=== PATIENT | female | born 1940 | race Caucasian/White ===

== ENCOUNTER → 2019-08-08 12:04 | Outpatient (CLI) | payer MEDICARE, SELFPAY ==
--- NOTE | ~2019-08-08 | XR_ITS ---
EXAMINATION: XR chest 2V DATE: 08/08/2019 12:22 INDICATION: Cough, shortness of breath, and wheezing. TECHNIQUE: Frontal and lateral views of the chest were obtained. COMPARISON: Chest 2 views 06/24/2019, chest CT 09/30/2018 FINDINGS: A calcified left lung nodule and calcified left hilar lymph nodes are consistent with old g ranulomatous disease. No pleural effusion or pneumothorax. The heart size is normal. There is a moder ate-sized hiatal hernia. IMPRESSION: 1. Moderate-sized hiatal hernia. Reviewed, dictated and finalized at location A. WAY [employer] ARCHITECT
== END ==
LOC: EXPCRAD 12:08
PROVIDERS: PCP Emergency Medicine; Visit Provider Emergency Medicine
DX: R05 Cough (principal); K44.9 Diaphragmatic hernia without obstruction or gangrene
CPT/HCPCS: 71046

== ENCOUNTER 2020-01-11 13:18 | Outpatient (CLI) | payer MEDICARE, SELFPAY ==
--- NOTE | ~2020-01-11 | CT_ITS ---
EXAMINATION: CT chest wo con DATE: 01/11/2020 13:40 INDICATION: R91.1 Solitary pulmonary nodule TECHNIQUE: Computed tomography (CT) of the chest was performed without intravenous contrast. Addition al 3D reconstructions utilizing coronal maximum intensity projection (MIP) were performed. Automated exposure control and iterative reconstruction technique were employed. The dose-length product was 21 0.19 mGy-cm. COMPARISON: None FINDINGS: Cluster of calcified pulmonary nodules in the left lower lobe consistent with old granulomatous disea se, the largest corresponding to the nodule seen on the prior chest radiograph. Again seen are yang us additional scattered bilateral small noncalcified pulmonary nodules, the largest measuring 4 mm in the right middle lobe also likely sequela of old granulomatous disease. Mild peripheral irregular se ptal line thickening at the lung bases consistent with chronic interstitial lung disease. No pneumoni a, pleural effusion or pneumothorax. Heart size is normal. Atherosclerotic coronary artery calcificat ions. No pericardial effusion. Small to moderate sized sliding-type hiatal hernia. Atherosclerotic ca lcific changes along the normal caliber thoracic aorta. Calcified left hilar lymph nodes along with m ultiple scattered hepatic and splenic calcifications, all consistent with old granulomatous disease. No pathologically enlarged thoracic lymphadenopathy. Bilateral renal cysts the largest a 3.4 cm exoph ytic cyst at the upper pole of the right kidney. 3 mm nonobstructing left renal stone. Severe thoraco lumbar spondylosis. IMPRESSION: 1. Multiple 4 mm or smaller pulmonary nodules along with multiple calcified pulmonary nodules, calcif ied left hilar lymph nodes and hepatic and splenic calcifications likely sequela of old granulomatous disease. 2. Mild bibasilar irregular intralobular septal thickening consistent with mild chronic interstitial lung disease. 3. Small to moderate-sized sliding-type hiatal hernia. Reviewed, dictated and finalized at location A. IMPRESSION: 1. Multiple 4 mm or smaller pulmonary nodules along with multiple calcified pul monary nodules, calcified left hilar lymph nodes and hepatic and splenic calcif ications likely sequela of old granulomatous disease. 2. Mild bibasilar irregular intralobular septal thickening consistent with mild chronic interstitial lung disease. 3. Small to moderate-sized sliding-type hiatal hernia.
== END 2020-01-11 13:19 | disposition home or self-care (01) ==
PROVIDERS: Visit Provider Internal Medicine Critical Care Medicine
DX: R91.8 Other nonspecific abnormal finding of lung field (principal); K44.9 Diaphragmatic hernia without obstruction or gangrene
CPT/HCPCS: 71250

== ENCOUNTER 2020-11-07 13:39 | Outpatient (CLI) | payer MEDICARE, SELFPAY ==
--- NOTE | ~2020-11-07 | CT_ITS ---
EXAMINATION: CT diagnostic chest wo con EXAM DATE: 11/07/2020 14:03 INDICATION: J84.9 - Interstitial pulmonary disease, unspecified. TECHNIQUE: Spiral CT of the chest without contrast. HRCT. Axial, coronal and sagittal images were re viewed. Coronal maximum intensity pixel images of chest reviewed. The dose-length product (DLP) for this examination was 631.59 mGy-cm. The exposure was tailored according to patient size (auto mA ex posure control), and iterative reconstruction (ASIR) was used as additional dose reduction technique. Comparison is made to prior examination from 01/11/2020. FINDINGS: Mild basilar intralobular septal thickening again noted without honeycombing. Appearance c onsistent with mild chronic interstitial lung disease. There is mild bronchiectasis. Prior hilar gran ulomatous process causing significant short segment narrowing of the left lower lobe intralobar bronc hus, unchanged compared to prior study (see axial sequence 4 images 56-59). Faint mosaic attenuation suspected most likely air trapping from small airways disease. Scattered small calcified and noncalci fied granulomata unchanged. Precarinal lymph node measuring 1.5 x 1.1 cm, mildly enlarged and mildly increased in size from previous examination. There are no pleural or pericardial effusions. There is no pneumothorax. Borderline enlarged hear t size. There is mild to moderate coronary arterial calcification, arterial sclerosis. There is smal l to moderate-sized sliding gastroesophageal hiatal hernia. 4 mm left superior calyceal stone. Cyst in the superior poles of the kidneys. Evidence of left renal cortical scarring. There is mild to mod erate thoracic spondylosis without osteoblastic or osteolytic lesions identified. IMPRESSION: 1. Left hilar granulomata causing significant narrowing left lower lobe bronchus. 2. Mild chronic interstitial lung disease and probably mild air trapping. 3. Development of mild mediastinal lymphadenopathy likely reactive. 4. Mild bronchiectasis. 5. Gastroesophageal hiatal hernia. 6. Left nephrolithiasis. Reviewed, dictated and finalized at location A. IMPRESSION: 1. Left hilar granulomata causing significant narrowing left lower lobe bronch us. 2. Mild chronic interstitial lung disease and probably mild air trapping. 3. Development of mild mediastinal lymphadenopathy likely reactive. 4. Mild bronchiectasis. 5. Gastroesophageal hiatal hernia. 6. Left nephrolithiasis.
== END 2020-11-07 13:40 | disposition home or self-care (01) ==
LOC: ANHIMG 13:42
PROVIDERS: PCP Family Medicine; Visit Provider Nurse Practitioner Family
DX: J84.9 Interstitial pulmonary disease, unspecified (principal); R04.2 Hemoptysis; J84.10 Pulmonary fibrosis, unspecified; R59.0 Localized enlarged lymph nodes; J47.9 Bronchiectasis, uncomplicated; K44.9 Diaphragmatic hernia without obstruction or gangrene; N20.0 Calculus of kidney
CPT/HCPCS: 71250

== ENCOUNTER 2020-12-01 13:23 | Inpatient (IN) | payer MEDICARE, SELFPAY ==
[2020-12-01] VITALS (18 sets, daily range): BP systolic 146–182; BP diastolic 62–107; PULSE 89–103; RESP 16–28; TEMP 36.1–36.8; O2SAT 86–100; BMI 38.5
--- NOTE | ~2020-12-01 | CT_ITS ---
EXAMINATION: CT soft tissue neck w con EXAM DATE: 12/01/2020 15:05 INDICATION: Respiratory stridor, wheezing, shortness of breath. TECHNIQUE: Spiral CT of the neck was performed without contrast. Axial, coronal and sagittal images were reviewed. The dose-length product (DLP) for this examination was 509.07 mGy-cm. The exposure was tailored according to patient size (auto mA exposure control), and iterative reconstruction (ASIR ) was used as additional dose reduction technique. Correlation is made to chest x-ray same date. FINDINGS: Large incidental partly calcified extra-axial mass along left anterior aspect of the falx m easuring 3.7 x 3.7 cm in diameter, consistent with a meningioma. The thyroid gland is unremarkable. The submandibular and parotid glands are symmetric. There is no cervical lymphadenopathy. There are no masses identified. The superior mediastinum is unremarkable. The airway is unremarkable, epiglottis normal in thickness. Parapharyngeal and pre-glottic fat planes are preserved. The opac ified vasculature is patent. Patient has had bilateral ocular lens surgery. Visualized sinuses an d mastoid air cells are well aerated. Apical groundglass opacity, and interlobular septal thickenin g possible mild pulmonary edema. Consider CHF exacerbation. There is cervical spondylosis. IMPRESSION: 1. Unremarkable epiglottis, airway. 2. At least small layering pleural effusions and also suspect pulmonary edema. CHF? 3. Large incidental left frontal extra-axial mass probably meningioma. Reviewed, dictated and finalized at location B.
--- NOTE | ~2020-12-01 | XR_ITS ---
EXAMINATION: XR chest 1V portable EXAM DATE: 12/01/2020 14:24 INDICATION: Shortness of breath. TECHNIQUE: Portable AP frontal chest x-ray was obtained. Comparison is made to prior examination from 08/08/2019. FINDINGS: Left lower lobe granuloma.. There are no pleural sizable effusions. Mild cardiomegaly. Th ere is indistinct reticulation with a bibasal predominance which may indicate pulmonary edema. Previo usly seen gastroesophageal hiatal hernia less well-visualized. There is no pneumothorax suspected. The bones and soft tissues are unremarkable. IMPRESSION: Cardiomegaly, possible mild pulmonary edema. Reviewed, dictated and finalized at location B.
--- NOTE | ~2020-12-01 | CT_ITS ---
EXAMINATION: CT brain wo con DATE: 12/02/2020 17:05 INDICATION: Left frontal lobe mass. TECHNIQUE: Computed tomography (CT) of the head was performed without intravenous contrast. The mA wa s adjusted according to patient size. Iterative reconstruction technique was employed. The dose-lengt h product was 605.33 mGy-cm. COMPARISON: Head CT 08/25/2015 FINDINGS: There is a 4.1 x 3.7 cm calcified extra-axial mass anteroinferior to left frontal lobe, con sistent with a meningioma. There are scattered areas of low attenuation in the cerebral white matter, which is within normal limits for the patient's age. There is no acute intracranial hemorrhage. Ther e are old infarcts in the bilateral basal ganglia. The ventricles are normal in size. The paranasal s inuses are clear. The mastoid air cells are normal. There are likely changes of ocular lens replaceme nt surgeries. 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 IMPRESSION: 1. Stable 4.1 cm calcified extra-axial mass anteroinferior to left frontal lobe, consistent with a me ningioma. 2. Old lacunar infarcts in the bilateral basal ganglia. Reviewed, dictated and finalized at location A. IMPRESSION: 1. Stable 4.1 cm calcified extra-axial mass anteroinferior to left frontal lobe , consistent with a meningioma. 2. Old lacunar infarcts in the bilateral basal ganglia.
--- NOTE | 2020-12-01 13:25 | ECG_ITS ---
Measurements Intervals [place] Rate: 96 P: [place]: 0 QRS: 44 QRSD: 84 T: 76 QT: 325 QTc: 411 Interpretive Statements SINUS RHYTHM ATRIAL AND VENTRICULAR PREMATURE COMPLEXES VOLTAGE CRITERIA FOR LVH BORDERLINE T WAVE ABNORMALITY- HIGH LATERAL LEADS BORDERLINE ECG Electronically Signed On 12-01-2020 13:34:28 CDT by Aadms Beltran D.O.
--- NOTE | 2020-12-01 13:46 | ED.SOB ---
HPI - SOB/Dyspnea General Chief Complaint: Shortness of Breath/Dyspnea Stated Complaint: can't breathe Time Seen by Provider: 12/01/20 13:36 History of Present Illness HPI Narrative: 80 yo female w/ h/o COPD, CHF, htn, atrial fibrillation presents to the ED for SOB. She reports that she has been short of breath for at least a few weeks. She becomes SOB with minimal exertion. She has severe orthopnea. She reports improvement of chronic BLE edema. No chest pain. SHe went to get her hair done today and was barely able to get out of the car due to SOB. On arrival here her O2 saturation was 86% on her baseline 3 liters by NC. She required 6 liters to maintain 90%. No chest pain, fever, nausea, vomiting. Related Data Home Medications Medication Instructions Recorded Confirmed rosuvastatin 20 mg PO DAILY 06/05/19 10/13/20 furosemide 20 mg tablet 40 mg PO DAILY tablet 08/03/19 10/13/20 fluoxetine 20 mg tablet 10 mg PO DAILY tablet 01/14/20 10/13/20 potassium chloride meq PO 12/01/20 12/01/20 Allergies Allergy/AdvReac Type Severity Reaction Status Date / Time codeine Allergy Unknown Unknown Verified 12/01/20 13:31 Hcatwuh-Naf-Tza Reductase Allergy Unknown myalgias Verified 12/01/20 13:31 Inhibitor Sulfa (Sulfonamide Allergy Unknown Unknown Verified 12/01/20 13:31 Antibiotics) Review of Systems Review of Systems: All systems reviewed & are unremarkable except as noted in HPI and below Constitutional: Constitutional: Denies chills and Denies fever(s) Eyes: Eyes: Reports no additional eye complaints ENT: Reports system reviewed and no additional complaints, except as documented Cardiovascular: Cardiovascular: Denies chest pain Respiratory: Respiratory: Reports chest congestion, Reports cough, Reports dyspnea and Reports wheezing Gastrointestinal: Gastrointestinal: Reports abdominal pain (intermittent RUQ pain) and Denies nausea Genitourinary: Genitourinary: Reports no additional female genitourinary complaints Musculoskeletal: Musculoskeletal: Denies back pain Neurologic: Denies dizziness and Denies weakness FOR[facility]LY [facility], [facility] Past Medical History Medical History Anemia Anxiety Arthritis Asthma Atrial fibrillation with RVR CAD (coronary artery disease) Cataracts, bilateral CHF (congestive heart failure) COPD (chronic obstructive pulmonary disease) CVA (cerebral vascular accident) Depression GERD (gastroesophageal reflux disease) History of kidney stones HLD (hyperlipidemia) HTN (hypertension) Hypercholesteremia Kidney stones Lupus Patient said she was diagnosed by 1 doctor and then another doctor said she did not have it On home O2 2.5 L Pneumonia Pulmonary embolism Sleep apnea Chronically on oxygen at 2.5 L. Does not use CPAP machine UTI (urinary tract infection) Surgical History Surgical History History of hysterectomy History of right knee joint replacement Hx of appendectomy Hx of bilateral cataract extraction Hx of tonsillectomy Family History Family History Mother Hypertension Family history of primary malignant neoplasm of liver Carcinoma of colon Sibling Hypertension Asthma Family history of elevated blood lipids Cerebrovascular accident Family history of malignant neoplasm of breast in first degree relative Family history of chronic obstructive pulmonary disease Family history of congestive heart failure Father Family history of coronary artery disease Family history of heart disease in male family member before age 55 Hypertension Acute myocardial infarction Family history of congestive heart failure Other Family history of arthritis Social History Social History Social History: Her daughter Zo is a durable 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
[2020-12-01 13:55] LABS: Basophils Absolute Auto 0.1 K/mm3 (0.0-0.1); Basophils Percent Auto 0.9 % (0.2-1.2); Eosinophils Absolute Auto 0.2 K/mm3 (0-0.3); Eosinophils Percent Auto 3.6 % (0-4.4); Hematocrit 30.6 % (37.0-47.0); Hemoglobin 9.2 g/dL (12.0-15.0); Immature Granulocyte Absolute 0.02 K/mm3 (0.00-0.031); Immature Granulocyte Percent A 0.4 % (0-0.5); Lymphocytes Absolute Auto 0.82 K/mm3 (0.9-3.2); Lymphocytes Percent Auto 14.9 % (18.3-44.2); Mean Corpuscular HGB Conc 30.1 g/dl (32-36); Mean Corpuscular Hemoglobin 29.3 pg (26-34); Mean Corpuscular Volume 97.5 fl (80-100); Mean Platelet Volume 12.1 fl (7.4-10.4); Monocytes Absolute Auto 0.8 K/mm3 (0.1-0.6); Neutrophils Absolute Auto 3.6 K/mm3 (1.3-6.7); Neutrophils Percent Auto 65.2 % (45.5-73.1); Platelet Count Result 135 k/mm3 (150-375); Red Blood Count 3.14 M/mm3 (4.2-5.4); Red Cell Distribution Width 14.4 % (11.5-14.5); White Blood Count 5.5 K/mm3 (4.5-10.0)
[2020-12-01 14:05] LABS: Alveolar/Arterial O2 Gradient 126.1 mmHg; Base Excess ABG 4.5 mEq/l (+/-2.0); Carboxyhemoglobin 0.1 % THb (0-2.0); Fractional Inspired Oxygen 44 %; HCO3 ABG 30.2 mEq/l (22.0-26.0); Oxygen Content ABG 14.3 %vol (16.0-22.0); Oxygen Saturation ABG 98.5 % (95.0-100.0); PCO2 ABG 51.1 mmHg (35.0-45.0); PO2 ABG 129.4 mmHg (80.0-100.0); PO2 FiO2 Ratio Arterial Blood 2.94 %; Reduced Hemoglobin 1.9 %THb (0-5.0); Total Hemoglobin 10.2 g/dL (12.0-18.0)
[2020-12-01 14:06] LABS: Device NASAL CANNULA; Modified Allen's Test Pass; Site Drawn RIGHT RADIAL
[2020-12-01 14:10] LABS: Anion Gap 1 mmol/L (8-16); Blood Urea Nitrogen 21 mg/dL (7-17); Calcium 9.7 mg/dL (8.4-10.2); Carbon Dioxide 36 mmol/L (22-30); Chloride 105 mmol/L (98-107); Estimated CRCL calculation 40 ml/min; Estimated Glomerular Filt Rate 53; Glucose 95 mg/dL (65-105); Potassium 4.4 mmol/L (3.4-5.0); Sodium 142 mmol/L (137-145)
[2020-12-01] MEDS: ALBUTEROL SULFATE NEB 2.5 MG/0.5 ML INH 5 MG INHALATION ×2 (14:11→21:13)
[2020-12-01] MEDS: IPRATROPIUM BR 0.02% INH SOLN 0.5 MG/2.5 ML VIAL INHALATION ×2 (14:12→21:13)
[2020-12-01 14:18] LABS: NT Pro B Type Natriuretic Pept 12000 pg/mL (5-100)
[2020-12-01] MEDS: racEPINEPHrine 2.25% NEBU SOLN 0.5 ML VIAL.NEB INHALATION (14:34)
[2020-12-01] MEDS: HYDROCORTISONE SODIUM SUCCINATE 100 MG/2 ML VIAL IV PUSH (16:23)
[2020-12-01] MEDS: FUROSEMIDE INJ 40 MG/4 ML VIAL IV PUSH ×2 (16:23→20:12)
--- NOTE | 2020-12-01 17:03 | ADMGEN ---
This patient, Anna Jones, was admitted to Medical Room 342-01. Patient/family oriented to hospital policies and general routines including ID bracelet, bed and alarms, visiting hours, pain management, procedures, bathroom and other care routines, personal items, smoking policy, room service/diet, and visiting hours. Information on how to activate the Rapid Response Team has been discussed. Patient/Family are encouraged to report perceived risks to care and to ask questions if they do not understand what they are told or what they should do.
[2020-12-01] MEDS: methylPREDNISolone SOD SUCC 125 MG VIAL 60 MG IV PUSH ×2 (18:03→23:19)
--- NOTE | 2020-12-01 22:57 | PM.IMHP ---
H&P: HPI History of Present Illness Date/Time: 12/01/20 22:57 this is a 80-year-old female patient has a history of congestive heart failure, atrial fibrillation, COPD, and hypertension. The patient chronically wears oxygen at 3 L per nasal cannula. The patient stated that she has not been taking her Lasix on a regular basis because it causes her legs to cramp also she is tired to the frequent urination. The patient does use urinary pads. The patient has severe orthopnea and dyspnea on exertion. The patient's oxygen was bumped up to 6 L per nasal cannula today. The patient went to get her hair done today and was having difficulty getting out of her car due to the shortness of breath. However the patient was able to tolerate sitting in the chair to get her hair cut today.Soft tissue neck CT was performed in the emergency room which was read as unremarkable epiglottis, airway. At least small earring pleural effusions and also suspect pulmonary edema questionable congestive heart failure large incidental left frontal extra axial mass probably meningioma. The ER physician felt that the patient was having some stridor. Chest x-ray was read as cardiomegaly, possible mild pulmonary edema. She is on Eliquis due to history of pulmonary emboli. The patient's last chest CT was 11/08/2020 which was read as left hilar granulomata causing some significant narrowing left lower lobe bronchus. Mild chronic interstitial lung disease and probably mild air trapping. Development of mild mediastinal lymphadenopathy likely reactive. Mild bronchiolectasis. Gastroesophageal hiatal hernia. Left nephrolithiasis. Albuterol neb treatments. Racemic epi. IV Lasix Solu-Medrol in the emergency room. The patient is being admitted to inpatient status on the date of service of 12/01/2020. Chief Complaint: Dyspnea on exertion Review of Systems Review of Systems: All systems reviewed & are unremarkable except as noted in HPI and below Constitutional: Constitutional: Reports as per HPI and Reports no additional constitutional complaints Eyes: Eyes: Reports as per HPI and Reports no additional eye complaints ENT: Reports system reviewed and no additional complaints, except as documented and Reports Normal hearing present Cardiovascular: Cardiovascular: Reports no additional cardiovascular complaints Respiratory: Respiratory: Reports no additional respiratory complaints and Reports no additional respiratory complaints Gastrointestinal: Gastrointestinal: Reports as per HPI and Reports no additional gastrointestinal complaints Musculoskeletal: Musculoskeletal: Reports no additional musculoskeletal complaints Integumentary/Breasts: Skin/Breast: Reports system reviewed and no additional complaints, except as docu and Reports as per HPI Neurologic: Reports system reviewed and no additional complaints, except as documented, Reports as per HPI and Reports Normal hearing present Psychiatric: Psychiatric: Reports no additional psychiatric complaints and Reports as per HPI Endocrine: Endocrine: Reports no additional endocrine complaints Hematologic/Lymphatic: Hematologic/Lymphatic: Reports no additional hematologic/lymphatic complaints Allergic/Immunologic: Allergic/Immunologic: Reports no additional allergic/immunologic complaints [facility] Past Medical History Medical History (Updated 12/01/20 @ 23:09 by Iza Patel NP) Anemia Anxiety Arthritis Asthma Atrial fibrillation with RVR CAD (coronary artery disease) Cataracts, bilateral CHF (congestive heart failure) COPD (chronic obstructive pulmonary disease) CVA (cerebral vascular accident) Depression GERD (gastroesophageal reflux disease) History of kidney stones HLD (hyperlipidemia) HTN (hypertension) Hypercholesteremia Kidney stones Lupus Patient said she was diagnosed by 1 doctor and then another doctor said she did not have it On home O2 3 L Pneumonia Pulmonary embolism Sleep apnea Chronically on oxyge
[2020-12-01] MEDS: APIXABAN 5 MG TABLET PO (23:18)
[2020-12-02] VITALS (16 sets, daily range): BP systolic 140–157; BP diastolic 50–75; PULSE 88–111; RESP 18–20; TEMP 36.1–36.3; O2SAT 94–97
--- NOTE | 2020-12-02 | ECHO_ITS ---
Patient Info Name: Anna Jones Age: 80 years : 1940 Gender: Female Ht: 62 in Wt: 210 lbs BSA: 2.09 m2 HR: 109 bpm BP: 157 / 75 mmHg Heart Rhythm: Sinus Rhythm Exam Date: 12/02/2020 10:38 AM Exam Location: [facility] Patient Status: Inpatient Admit Date: 12/01/2020 Staff Ordering Physician: Iza Patel NP Transition Assistant: Viraj Burgess RDCS, RT Attending Provider: Adan Garcia MD Referring Physician: Jorge ANDERSON; Exam Type: CA echo doppler color flow Study Info Indications I50.9 - Heart failure, unspecified Complete two-dimensional, color flow and Doppler transthoracic echocardiogram is performed. Strain analysis performed. Summary 1. Complete two-dimensional, color flow and Doppler transthoracic echocardiogram is performed. 2. Left ventricular systolic function is normal, estimated at 50-55%. 3. The left ventricular diastolic function is grade I diastolic dysfunction. 4. There is moderate concentric increased left ventricular wall thickness. 5. Left atrial chamber dimension is mildly enlarged. 6. There is mild mitral valve regurgitation. 7. There is mild aortic valve sclerosis. Left Ventricle Left ventricular chamber dimension is normal. Left ventricular systolic function is normal, estimated at 50-55%. There is moderate concentric increased left ventricular wall thickness. The left ventricular diastolic function is grade I diastolic dysfunction. Right Ventricle Right ventricular chamber dimension is normal. Left Atria Left atrial chamber dimension is mildly enlarged. Right Atria Right atrial chamber dimension is normal. Aortic Valve The aortic valve is trileaflet. There is mild aortic valve sclerosis. Pulmonic Valve The pulmonic valve is not well visualized. Mitral Valve The mitral valve has normal leaflets. There is mild mitral valve regurgitation. Tricuspid Valve The tricuspid valve leaflets are normal. Pericardium/Pleural The pericardium appears normal. Aorta The aortic root size at the sinus of Valsalva is normal. Left Ventricular Outflow Tract Name Value Normal LVOT 2D LVOT Diameter 2.0 cm LVOT Doppler LVOT Peak Gradient 6 mmHg LVOT Mean Gradient 3 mmHg LVOT VTI 23 cm LVOT VTI/AV VTI Ratio 0.7 LVOT Stroke Volume 70 ml LVOT CO 6.9 l/min LVOT CI 3.3 l/min/m2 Mitral Valve Name Value Normal MV Doppler MV Peak Gradient 1 mmHg MV Mean Gradient 1 mmHg MV Decel Atlantic 728 cm/s2 MV PHT 49 ms MV Area (PHT) 4.5 cm2
[2020-12-02] MEDS: ALBUTEROL SULFATE NEB 2.5 MG/0.5 ML INH 5 MG INHALATION ×3 (02:07→13:39)
[2020-12-02] MEDS: IPRATROPIUM BR 0.02% INH SOLN 0.5 MG/2.5 ML VIAL INHALATION ×3 (02:08→13:39)
[2020-12-02] MEDS: methylPREDNISolone SOD SUCC 125 MG VIAL 60 MG IV PUSH ×2 (05:37→21:21)
[2020-12-02 05:46] LABS: Hematocrit 31.5 % (37.0-47.0); Hemoglobin 9.6 g/dL (12.0-15.0); Mean Corpuscular HGB Conc 30.5 g/dl (32-36); Mean Corpuscular Hemoglobin 29.1 pg (26-34); Mean Corpuscular Volume 95.5 fl (80-100); Mean Platelet Volume 12.3 fl (7.4-10.4); Platelet Count Result 144 k/mm3 (150-375); Red Cell Distribution Width 13.9 % (11.5-14.5); White Blood Count 4.5 K/mm3 (4.5-10.0)
[2020-12-02 06:07] LABS: Alanine Aminotransferase 12 U/L (4-35); Albumin Level 3.8 g/dL (3.5-5.1); Alkaline Phosphatase 62 U/L (38-126); Aspartate Amino Transferase 28 U/L (14-36); Bilirubin,Total 0.3 mg/dL (0.2-1.3); Blood Urea Nitrogen 21 mg/dL (7-17); Calcium 9.6 mg/dL (8.4-10.2); Carbon Dioxide > 40 mmol/L (22-30); Chloride 96 mmol/L (98-107); Estimated CRCL calculation 32 ml/min; Estimated Glomerular Filt Rate 39; Glucose 158 mg/dL (65-105); Magnesium 1.7 mg/dL (1.6-2.3); Potassium 4.3 mmol/L (3.4-5.0); Sodium 139 mmol/L (137-145)
[2020-12-02] MEDS: ACETAMINOPHEN 325 MG TABLET 650 MG PO ×2 (07:59→21:28)
[2020-12-02] MEDS: APIXABAN 5 MG TABLET PO ×2 (08:00→16:43)
[2020-12-02] MEDS: lisinopriL 5 MG TABLET PO (08:00)
[2020-12-02] MEDS: ROSUVASTATIN 10 MG TABLET 20 MG PO (08:00)
[2020-12-02] MEDS: POTASSIUM CHLORIDE 20 MEQ TABLET.ER PO (08:00)
[2020-12-02] MEDS: FLUoxetine HCL 10 MG CAPSULE PO (08:00)
[2020-12-02] MEDS: FUROSEMIDE INJ 40 MG/4 ML VIAL IV PUSH ×2 (08:01→21:22)
--- NOTE | 2020-12-02 09:26 | PM.IMPN ---
Progress Note: A&P Assessment and Plan (1) CHF (congestive heart failure): Qualifiers: Heart failure type: combined systolic and diastolic Heart failure chronicity: acute on chronic Qualified Code(s): I50.43 - Acute on chronic combined systolic (congestive) and diastolic (congestive) heart failure Code(s): I50.9 - Heart failure, unspecified Status: Acute Assessment and Plan: Patient presents with worsening shortness of breath over the last few weeks, worsening yesterday could barely walk. She admits she takes her Lasix rarely , only when her legs are swollen, because she dislikes the frequent urination. We discussed medication compliance at length and the importance of taking her Lasix. Echo pending. Chest XR shows cardiomegaly with possible pulmonary edema. Continue IV Lasix BID. Recheck chest XR in AM. Monitor daily weights, I&Os. Continue her lisinopril and monitor renal function. She used to be on metoprolol tartrate due to a fib but I don't see this on her medication list now. Will start succinate given her CHF pending her repeat echo. (2) Chronic obstructive pulmonary disease (COPD): Qualifiers: COPD type: unspecified COPD Qualified Code(s): J44.9 - Chronic obstructive pulmonary disease, unspecified Code(s): J44.9 - Chronic obstructive pulmonary disease, unspecified Status: Chronic Assessment and Plan: She was started on IV solu-medrol yesterday due to significant wheezing. She doesn't have wheezing today, will wean steroids. She uses nebulizer at home, continue her nebulized bronchodilators here. No respiratory distress today, will plan to wean steroids to oral prednisone in AM. (3) Pulmonary embolism: Qualifiers: Pulmonary embolism type: unspecified Chronicity: unspecified Acute cor pulmonale presence: unspecified Qualified Code(s): I26.99 - Other pulmonary embolism without acute cor pulmonale Code(s): I26.99 - Other pulmonary embolism without acute cor pulmonale Status: Chronic Assessment and Plan: History of PE/DVT in 2019, remains on her home Eliquis. (4) Anxiety: Code(s): F41.9 - Anxiety disorder, unspecified Status: Chronic Assessment and Plan: Maintained on her home fluoxetine. (5) HTN (hypertension): Qualifiers: Hypertension type: essential hypertension Qualified Code(s): I10 - Essential (primary) hypertension Code(s): I10 - Essential (primary) hypertension Status: Chronic Assessment and Plan: BPs elevated; last 157/75. Continue her home lisinopril, started metoprolol. Monitor BP and adjust treatment as needed. (6) HLD (hyperlipidemia): Qualifiers: Hyperlipidemia type: unspecified Qualified Code(s): E78.5 - Hyperlipidemia, unspecified Code(s): E78.5 - Hyperlipidemia, unspecified Status: Chronic Assessment and Plan: Continue home statin therapy. Additional Plan PT/OT Subjective Date/time seen: 12/02/20 09:00 Interval history: Ms. Jones is a pleasant 80yo F with COPD and CHF admitted for shortness of breath. She reports she had significant wheezing yesterday which is improved today an d overall feels her shortness of breath is a little improved. She feels weak. Cough at baseline, no worse than normal. Denies chest pain or palpitations. Has not noticed much swelling in her legs. She has felt worsening shortness of breath for a couple weeks worsening more over the last couple days and could barely walk yesterday due to SOB. Admits she does not take her lasix at home. Review of Systems Review of Systems: All systems reviewed & are unremarkable except as noted in HPI and b
[2020-12-02] MEDS: PANTOPRAZOLE 40 MG TABLET PO (09:57)
[2020-12-03] VITALS (15 sets, daily range): BP systolic 124–148; BP diastolic 50–86; PULSE 74–106; RESP 14–20; TEMP 35.9–36.8; O2SAT 95–98
[2020-12-03] MEDS: ALBUTEROL SULFATE NEB 2.5 MG/0.5 ML INH 5 MG INHALATION ×4 (02:36→19:35)
[2020-12-03] MEDS: IPRATROPIUM BR 0.02% INH SOLN 0.5 MG/2.5 ML VIAL INHALATION ×4 (02:36→19:34)
--- NOTE | 2020-12-03 02:39 | PCRCNOTE ---
Window of time for administration has passed. See next scheduled administration.
[2020-12-03 06:03] LABS: Basophils Percent Auto 0.1 % (0.2-1.2); Hematocrit 30.2 % (37.0-47.0); Hemoglobin 9.3 g/dL (12.0-15.0); Immature Granulocyte Absolute 0.03 K/mm3 (0.00-0.031); Immature Granulocyte Percent A 0.4 % (0-0.5); Lymphocytes Percent Auto 4.8 % (18.3-44.2); Mean Corpuscular HGB Conc 30.8 g/dl (32-36); Mean Corpuscular Hemoglobin 28.8 pg (26-34); Mean Corpuscular Volume 93.5 fl (80-100); Mean Platelet Volume 12.6 fl (7.4-10.4); Monocytes Absolute Auto 0.3 K/mm3 (0.1-0.6); Monocytes Percent Auto 3.5 % (2.6-8.5); Neutrophils Absolute Auto 7.6 K/mm3 (1.3-6.7); Neutrophils Percent Auto 91.2 % (45.5-73.1); Platelet Count Result 159 k/mm3 (150-375); Red Blood Count 3.23 M/mm3 (4.2-5.4); Red Cell Distribution Width 13.9 % (11.5-14.5); White Blood Count 8.3 K/mm3 (4.5-10.0)
[2020-12-03 06:29] LABS: Blood Urea Nitrogen 36 mg/dL (7-17); Calcium 9.6 mg/dL (8.4-10.2); Carbon Dioxide > 40 mmol/L (22-30); Chloride 94 mmol/L (98-107); Estimated CRCL calculation 25 ml/min; Estimated Glomerular Filt Rate 29; Glucose 171 mg/dL (65-105); Magnesium 1.8 mg/dL (1.6-2.3); Potassium 4.3 mmol/L (3.4-5.0); Sodium 139 mmol/L (137-145)
[2020-12-03] MEDS: APIXABAN 5 MG TABLET PO ×2 (08:08→17:04)
[2020-12-03] MEDS: predniSONE 20 MG TABLET 40 MG PO (08:08)
[2020-12-03] MEDS: PANTOPRAZOLE 40 MG TABLET PO (08:09)
[2020-12-03] MEDS: ROSUVASTATIN 10 MG TABLET 20 MG PO (08:09)
[2020-12-03] MEDS: lisinopriL 5 MG TABLET PO (08:09)
[2020-12-03] MEDS: FLUoxetine HCL 10 MG CAPSULE PO (08:09)
[2020-12-03] MEDS: METOPROLOL SUCCINATE EXT REL 12.5 MG TABCR PO (08:09)
[2020-12-03] MEDS: POTASSIUM CHLORIDE 20 MEQ TABLET.ER PO (08:56)
[2020-12-03] MEDS: FUROSEMIDE INJ 40 MG/4 ML VIAL IV PUSH ×2 (08:57→20:00)
--- NOTE | 2020-12-03 13:16 | PM.IMPN ---
Progress Note: A&P Assessment and Plan (1) CHF (congestive heart failure): Qualifiers: Heart failure type: combined systolic and diastolic Heart failure chronicity: acute on chronic Qualified Code(s): I50.43 - Acute on chronic combined systolic (congestive) and diastolic (congestive) heart failure Code(s): I50.9 - Heart failure, unspecified Status: Acute Assessment and Plan: Patient is feeling much better now. Will continue diuresis. He stays okay possible discharge in the morning. (2) Chronic obstructive pulmonary disease (COPD): Qualifiers: COPD type: unspecified COPD Qualified Code(s): J44.9 - Chronic obstructive pulmonary disease, unspecified Code(s): J44.9 - Chronic obstructive pulmonary disease, unspecified Status: Chronic Assessment and Plan: She was started on IV solu-medrol yesterday due to significant wheezing. She doesn't have wheezing today, will wean steroids. She uses nebulizer at home, continue her nebulized bronchodilators here. No respiratory distress today, will plan to wean steroids to oral prednisone in AM. (3) Pulmonary embolism: Qualifiers: Pulmonary embolism type: unspecified Chronicity: unspecified Acute cor pulmonale presence: unspecified Qualified Code(s): I26.99 - Other pulmonary embolism without acute cor pulmonale Code(s): I26.99 - Other pulmonary embolism without acute cor pulmonale Status: Chronic Assessment and Plan: History of PE/DVT in 2019, remains on her home Eliquis. (4) Anxiety: Code(s): F41.9 - Anxiety disorder, unspecified Status: Chronic Assessment and Plan: Maintained on her home fluoxetine. (5) HTN (hypertension): Qualifiers: Hypertension type: essential hypertension Qualified Code(s): I10 - Essential (primary) hypertension Code(s): I10 - Essential (primary) hypertension Status: Chronic Assessment and Plan: BPs elevated; last 157/75. Continue her home lisinopril, started metoprolol. Monitor BP and adjust treatment as needed. (6) HLD (hyperlipidemia): Qualifiers: Hyperlipidemia type: unspecified Qualified Code(s): E78.5 - Hyperlipidemia, unspecified Code(s): E78.5 - Hyperlipidemia, unspecified Status: Chronic Assessment and Plan: Continue home statin therapy. Additional Plan PT/OT Will continue current treatment. Stays okay will discharge in the morning. Subjective Date/time seen: 12/03/20 13:16 Interval history: Ms. Jones is a pleasant 80yo F with COPD and CHF was admitted for shortness of breath. She was seen during the morning rounds today. Feeling slightly better today. Decreased shortness of breath. No chest pain. Mood stable. Review of Systems Review of Systems: All systems reviewed & are unremarkable except as noted in HPI and below Constitutional: Constitutional: Reports as per HPI and Reports no additional constitutional complaints Eyes: Eyes: Reports as per HPI and Reports no additional eye complaints ENT: Reports system reviewed and no additional complaints, except as documented and Reports Normal hearing present Cardiovascular: Cardiovascular: Reports no additional cardiovascular complaints Respiratory: Respiratory: Reports no additional respiratory complaints and Reports no additional respiratory complaints Gastrointestinal: Gastrointestinal: Reports as per HPI and Reports no additional gastrointestinal complaints Musculoskeletal: Musculoskeletal: Reports no additional musculoskeletal complaints Integumentary/Breasts: Skin/Breast: Reports system reviewed and no additional complaints, except as docu and Reports
[2020-12-03] MEDS: ACETAMINOPHEN 325 MG TABLET 650 MG PO (19:59)
[2020-12-04] MEDS: ALBUTEROL SULFATE NEB 2.5 MG/0.5 ML INH 5 MG INHALATION ×2 (01:51→08:46)
[2020-12-04] MEDS: IPRATROPIUM BR 0.02% INH SOLN 0.5 MG/2.5 ML VIAL INHALATION ×2 (01:51→08:46)
[2020-12-04 01:52] VITALS: PULSE 98; RESP 20
[2020-12-04 02:05] VITALS: PULSE 92; RESP 20
[2020-12-04 05:57] VITALS: BP 148/70; PULSE 90; RESP 14; TEMP 36.7; O2SAT 97
--- NOTE | 2020-12-04 08:15 | PM.DS ---
DS: Admitting Diagnosis Admitting Diagnosis Admitting Diagnosis: 1. Acute exacerbation of systolic congestive heart failure. 2. History of COPD. 3. History of hypertension. 4. History of DVT. DS: Discharge Diagnosis Discharge Diagnosis (1) CHF (congestive heart failure): Qualifiers: Heart failure type: combined systolic and diastolic Heart failure chronicity: acute on chronic Qualified Code(s): I50.43 - Acute on chronic combined systolic (congestive) and diastolic (congestive) heart failure Code(s): I50.9 - Heart failure, unspecified Status: Acute Assessment and Plan: Patient is feeling much better now. Will continue diuresis. He stays okay possible discharge in the morning. (2) Chronic obstructive pulmonary disease (COPD): Qualifiers: COPD type: unspecified COPD Qualified Code(s): J44.9 - Chronic obstructive pulmonary disease, unspecified Code(s): J44.9 - Chronic obstructive pulmonary disease, unspecified Status: Chronic Assessment and Plan: She was started on IV solu-medrol yesterday due to significant wheezing. She doesn't have wheezing today, will wean steroids. She uses nebulizer at home, continue her nebulized bronchodilators here. No respiratory distress today, will plan to wean steroids to oral prednisone in AM. (3) Pulmonary embolism: Qualifiers: Pulmonary embolism type: unspecified Chronicity: unspecified Acute cor pulmonale presence: unspecified Qualified Code(s): I26.99 - Other pulmonary embolism without acute cor pulmonale Code(s): I26.99 - Other pulmonary embolism without acute cor pulmonale Status: Chronic Assessment and Plan: History of PE/DVT in 2019, remains on her home Eliquis. (4) Anxiety: Code(s): F41.9 - Anxiety disorder, unspecified Status: Chronic Assessment and Plan: Maintained on her home fluoxetine. (5) HTN (hypertension): Qualifiers: Hypertension type: essential hypertension Qualified Code(s): I10 - Essential (primary) hypertension Code(s): I10 - Essential (primary) hypertension Status: Chronic Assessment and Plan: BPs elevated; last 157/75. Continue her home lisinopril, started metoprolol. Monitor BP and adjust treatment as needed. (6) HLD (hyperlipidemia): Qualifiers: Hyperlipidemia type: unspecified Qualified Code(s): E78.5 - Hyperlipidemia, unspecified Code(s): E78.5 - Hyperlipidemia, unspecified Status: Chronic Assessment and Plan: Continue home statin therapy. DS: Summary Hospital Course Hospital Course: 80 years old female was admitted with complaint of having shortness of breath. Patient physical examination shows that if he has crackles in the lungs. DVT was slightly increased. X-ray chest confirmed that patient has fluid in the lungs. Patient was given diuretics and continued treatment for her pulmonary embolism and COPD. Patient continued to improve. Today patient is feeling better so it was decided to discharge the patient home, patient discharged home in stable condition. Time spent discussing smoking cessation with patient: 3 to 10 minutes Status at Discharge Functional status at discharge: independent ambulation Overall status at discharge: patient is back to baseline Time Spent with Patient Time attestation: Total time spent providing and/or coordinating discharge services: Time spent: Less than 30 minutes Exam Narrative: Exam Narrative: General: Female resting comfortably sitting up in bed in no acute distress. HEENT: Normocephalic, EOMI, oral mucosa moist. Cardiovascular: Rate and rhythm are regular. Respiratory: Diminished b
[2020-12-04 08:45] VITALS: PULSE 92; RESP 20; O2SAT 95
[2020-12-04 08:55] VITALS: PULSE 90; RESP 20
[2020-12-04] MEDS: FLUoxetine HCL 10 MG CAPSULE PO (09:06)
[2020-12-04] MEDS: APIXABAN 5 MG TABLET PO (09:06)
[2020-12-04] MEDS: predniSONE 20 MG TABLET PO (09:06)
[2020-12-04 09:07] VITALS: PULSE 70
[2020-12-04] MEDS: METOPROLOL SUCCINATE EXT REL 12.5 MG TABCR PO (09:07)
[2020-12-04] MEDS: FUROSEMIDE INJ 40 MG/4 ML VIAL IV PUSH (09:07)
[2020-12-04] MEDS: lisinopriL 5 MG TABLET PO (09:07)
[2020-12-04] MEDS: ROSUVASTATIN 10 MG TABLET 20 MG PO (09:08)
[2020-12-04] MEDS: PANTOPRAZOLE 40 MG TABLET PO (09:08)
[2020-12-04] MEDS: POTASSIUM CHLORIDE 20 MEQ TABLET.ER PO (09:08)
== END 2020-12-04 12:10 | disposition home or self-care (01) | DRG 292 ==
LOC: ANHED 14:15 → ANH3MED 17:37
PROVIDERS: Nurse Practitioner; Physician Assistant; Admitting Provider Internal Medicine; Emergency Provider Emergency Medicine; PCP Family Medicine; Visit Provider Internal Medicine
DX: I11.0 Hypertensive heart disease with heart failure (principal); I48.20 Chronic atrial fibrillation, unspecified; J96.11 Chronic respiratory failure with hypoxia; J96.12 Chronic respiratory failure with hypercapnia; I50.43 Acute on chronic combined systolic (congestive) and diastolic (congestive) heart failure; D64.9 Anemia, unspecified; M19.90 Unspecified osteoarthritis, unspecified site; I25.10 Atherosclerotic heart disease of native coronary artery without angina pectoris; K21.9 Gastro-esophageal reflux disease without esophagitis; E78.5 Hyperlipidemia, unspecified; J44.9 Chronic obstructive pulmonary disease, unspecified; G47.30 Sleep apnea, unspecified; F41.9 Anxiety disorder, unspecified; F32.9 Major depressive disorder, single episode, unspecified; Z96.651 Presence of right artificial knee joint; Z86.711 Personal history of pulmonary embolism; Z99.81 Dependence on supplemental oxygen; Z86.73 Personal history of transient ischemic attack (TIA), and cerebral infarction without residual deficits; Z90.710 Acquired absence of both cervix and uterus; Z90.49 Acquired absence of other specified parts of digestive tract; Z98.42 Cataract extraction status, left eye; Z98.41 Cataract extraction status, right eye; Z87.891 Personal history of nicotine dependence; Z79.01 Long term (current) use of anticoagulants
CPT/HCPCS: 36415; 36600; 70450; 70491; 71045; 80048; 80053; 82375; 82805; 83050; 83735; 83880; 85025; 85027; 93005; 93306; 94640; 97110; 97116; 97161; 97165; 99285; A9270; J1720; J1940; J2930; J7512; Q9967

== ENCOUNTER 2021-04-17 09:11 | Outpatient (CLI) | payer MEDICARE, SELFPAY ==
--- NOTE | ~2021-04-17 | US_ITS ---
US right upper quadrant INDICATION: Right upper quadrant pain PROCEDURE: Realtime right upper abdominal ultrasound. COMPARISON: No prior studies for comparison. FINDINGS: The pancreas is normal without focal mass or pancreatic ductal dilation. Liver echotexture is normal without focal mass or intrahepatic biliary dilatation. There is normal directional flow i n the portal vein. The gallbladder is normal without stones, gallbladder wall thickening or pericholecystic fluid. Comm on bile duct measures 2 mm. No sonographic Burgess's sign. IMPRESSION: 1: Normal limited abdominal ultrasound. Reviewed, dictated and finalized at location A.
== END 2021-04-17 09:12 | disposition home or self-care (01) ==
LOC: ANHIMG 09:15
PROVIDERS: PCP Family Medicine; Visit Provider Physician Assistant
DX: R10.11 Right upper quadrant pain (principal)
CPT/HCPCS: 76705

== ENCOUNTER 2021-05-23 13:58 | Outpatient (CLI) | payer MEDICARE, SELFPAY ==
--- NOTE | ~2021-05-23 | XR_ITS ---
EXAMINATION: XR chest 2V EXAM DATE: 05/23/2021 14:27 INDICATION: Dyspnea, shortness of breath. TECHNIQUE: Frontal and lateral projections of the chest obtained and reviewed. Comparison is made to prior examination from 12/01/2020. FINDINGS: There is left lower lobe granuloma. The lungs are otherwise clear. There are no pleural ef fusions. The cardiomediastinal silhouette is within normal limits. There is no pneumothorax suspect ed. The bones and soft tissues are unremarkable. IMPRESSION: No acute cardiopulmonary findings. Reviewed, dictated and finalized at location B.
== END 2021-05-23 13:59 | disposition home or self-care (01) ==
LOC: ANHIMG 14:05
PROVIDERS: PCP Family Medicine; Visit Provider Physician Assistant
DX: R10.11 Right upper quadrant pain (principal)
CPT/HCPCS: 71046

== ENCOUNTER 2021-07-25 16:34 | Emergency (ER) | payer MEDICARE, SELFPAY ==
[2021-07-25 16:44] VITALS: BP 152/56; PULSE 87; RESP 20; TEMP 36.7; O2SAT 93
[2021-07-25 18:45] VITALS: BP 154/68; PULSE 77; TEMP 36.7; O2SAT 94
--- NOTE | 2021-07-25 22:00 | PC.NURSE ---
Pt approaches triage desk and states that she is going to go home. Pt requests this RN call daughter to come get her. Pt advised of risks of leaving and told to come back if symptoms get worsen. Pt ambulated out of ED with steady gait, using walker.
== END 2021-07-26 03:16 | disposition left against medical advice (07) ==
LOC: ANHED 22:31
PROVIDERS: PCP Family Medicine
DX: Z53.21 Procedure and treatment not carried out due to patient leaving prior to being seen by health care provider (principal)
CPT/HCPCS: 99199

== ENCOUNTER 2021-10-11 15:53 | Emergency (ER) | payer MEDICARE, SELFPAY ==
[2021-10-11] VITALS (12 sets, daily range): BP systolic 150–185; BP diastolic 62–136; PULSE 64–77; RESP 6–23; TEMP 36.8; O2SAT 97–100
--- NOTE | ~2021-10-11 | US_ITS ---
US venous doppler [facility] DATE: 10/11/2021 17:50 INDICATION: Lower extremity swelling. History of deep venous thrombosis. TECHNIQUE: Real-time and color flow imaging and Doppler analysis of the veins of the lower extremitie s COMPARISON: 06/26/2019 venous duplex examination of the lower extremities FINDINGS: There is incomplete compression of the right femoral vein consistent with partial deep veno us thrombosis. There is spontaneous and phasic flow and normal augmentation and color flow signal and normal remington jaime of the remainder of the deep veins of both lower extremities. The greater saphenous veins are patent bilaterally. IMPRESSION: Partial thrombosis of the right femoral vein Reviewed, dictated and finalized at [facility]. Reviewed, dictated and finalized at location A.
--- NOTE | ~2021-10-11 | XR_ITS ---
EXAMINATION: XR chest 2V DATE: 10/11/2021 16:38 INDICATION: Shortness of breath. Cough. TECHNIQUE: Frontal and lateral views of the chest were obtained. COMPARISON: Chest 2 views 05/23/2021, chest CT 11/07/2020 FINDINGS: A calcified left lung nodule is consistent with old granulomatous disease. There is mild at electasis versus scarring at left lung base. No pleural effusion or pneumothorax. The heart size is n ormal. There is a moderate-sized hiatal hernia. IMPRESSION: 1. Mild atelectasis versus scarring at left lung base. 2. Moderate-sized hiatal hernia. Reviewed, dictated and finalized at location A.
--- NOTE | 2021-10-11 16:14 | ECG_ITS ---
Measurements Intervals [place] Rate: 69 P: 73 IL: 133 QRS: 14 QRSD: 85 T: 46 QT: 394 QTc: 423 Interpretive Statements SINUS RHYTHM WITH MARKED SINUS ARRHYTHMIA MODERATE VOLTAGE CRITERIA FOR LVH, CONSIDER NORMAL VARIANT [MEETS CRITERIA IN ONE OF: R(aVL), S(V1), R(V5), R(V5/V6)+S(V1)] COMPARED TO ECG 12/01/2020 13:31:01 SINUS ARRHYTHMIA NOW PRESENT AND THE PREVIOUSLY NOTED PVCS HAVE RESOLVED Electronically Signed On 10-11-2021 20:29:23 CDT by Haven Burns M.D.
[2021-10-11 16:56] LABS: Basophils Absolute Auto 0.1 K/mm3 (0.0-0.1); Eosinophils Absolute Auto 0.2 K/mm3 (0-0.3); Eosinophils Percent Auto 3.1 % (0-4.4); Hematocrit 33.8 % (37.0-47.0); Hemoglobin 10.7 g/dL (12.0-15.0); Immature Granulocyte Absolute 0.01 K/mm3 (0.00-0.031); Immature Granulocyte Percent A 0.2 % (0-0.5); Lymphocytes Absolute Auto 1.33 K/mm3 (0.9-3.2); Lymphocytes Percent Auto 23.1 % (18.3-44.2); Mean Corpuscular HGB Conc 31.7 g/dl (32-36); Mean Corpuscular Hemoglobin 31.1 pg (26-34); Mean Corpuscular Volume 98.3 fl (80-100); Mean Platelet Volume 12.1 fl (7.4-10.4); Monocytes Absolute Auto 0.8 K/mm3 (0.1-0.6); Monocytes Percent Auto 13.9 % (2.6-8.5); Neutrophils Absolute Auto 3.4 K/mm3 (1.3-6.7); Neutrophils Percent Auto 58.7 % (45.5-73.1); Platelet Count Result 129 k/mm3 (150-375); Red Blood Count 3.44 M/mm3 (4.2-5.4); Red Cell Distribution Width 13.6 % (11.5-14.5); White Blood Count 5.8 K/mm3 (4.5-10.0)
--- NOTE | 2021-10-11 17:05 | ED.SOB ---
HPI - SOB/Dyspnea General Chief Complaint: Shortness of Breath/Dyspnea Stated Complaint: sob Time Seen by Provider: 10/11/21 16:48 Source: patient and RN notes reviewed Mode of arrival: ambulatory Limitations: no limitations History of Present Illness HPI Narrative: This is an 81 year old female with history of COPD, chronic oxygen dependence on 2 L NC who presents for evaluation of shortness of breath. She reports chronic shortness of breath that has gradually worsened over past 1 week. She is unable to walk to bathroom in her home without feeling out of breath. She wears her oxygen 24 hours a day. She reports sinus drainage and a productive cough. She states she has seen small amount on blood intermittently in her cough phlegm. She denies chest pain, fever, nausea or vomiting. She reports her legs are always swollen and she is unsure if it is worsened. She states she takes her eliquis daily and it has been years since last PE diagnosis. Related Data Home oxygen amount: 2 liters Home Medications Medication Instructions Recorded Confirmed rosuvastatin 20 mg PO DAILY 06/05/19 01/16/21 fluoxetine 20 mg tablet 10 mg PO DAILY tablet 01/14/20 01/16/21 potassium chloride 20 meq PO DAILY 12/01/20 01/16/21 Allergies Allergy/AdvReac Type Severity Reaction Status Date / Time codeine Allergy Unknown Unknown Verified 01/16/21 13:10 Xmgquej-ZTT-YaJ Reductase Allergy Unknown myalgias Verified 01/16/21 13:10 Inhibitor [Bynbxgw-Xzi-Sfy Reductase Inhibitor] Sulfa (Sulfonamide Allergy Unknown Dizziness Verified 01/16/21 13:10 Antibiotics) Review of Systems Review of Systems: All systems reviewed & are unremarkable except as noted in HPI and below PMFSH Past Medical History Medical History Anemia Anxiety Arthritis Asthma Atrial fibrillation with RVR CAD (coronary artery disease) Cataracts, bilateral CHF (congestive heart failure) COPD (chronic obstructive pulmonary disease) CVA (cerebral vascular accident) Depression GERD (gastroesophageal reflux disease) History of kidney stones HLD (hyperlipidemia) HTN (hypertension) Hypercholesteremia Kidney stones Lupus Patient said she was diagnosed by 1 doctor and then another doctor said she did not have it On home O2 3 L Pneumonia Pulmonary embolism Sleep apnea Chronically on oxygen at 2.5 L. Does not use CPAP machine UTI (urinary tract infection) Surgical History Surgical History History of hysterectomy History of right knee joint replacement Hx of appendectomy Hx of bilateral cataract extraction Hx of tonsillectomy Family History Family History Mother Hypertension Family history of primary malignant neoplasm of liver Carcinoma of colon Sibling Hypertension Asthma Family history of elevated blood lipids Cerebrovascular accident Family history of malignant neoplasm of breast in first degree relative Family history of chronic obstructive pulmonary disease Family history of congestive heart failure Father Family history of coronary artery disease Family history of heart disease in male family member before age 55 Hypertension Acute myocardial infarction Family history of congestive heart failure Other Family history of arthritis Social History Social History Social History: Her daughter Zo is a durable power corporate attorney for healthcare. The patient is a full code. She is retired from [employer]. She has 3 daughters and 1 son. She lives home alone. She is . The patient stated she quit smoking back in the 80s. She denies any alcohol, marijuana or illicit drug use. Smoking packs per day: 1.5 Smoking cigarettes per day: 30.0 Years smoked: 35 Smoking pack-years: 52.50 Smoking status: Former smoker
[2021-10-11 17:06] LABS: Alanine Aminotransferase 17 U/L (4-35); Albumin Level 4.2 g/dL (3.5-5.1); Alkaline Phosphatase 68 U/L (38-126); Anion Gap 7 mmol/L (8-16); Aspartate Amino Transferase 37 U/L (14-36); Bilirubin,Total 0.6 mg/dL (0.2-1.3); Blood Urea Nitrogen 43 mg/dL (7-17); Calcium 9.2 mg/dL (8.4-10.2); Carbon Dioxide 31 mmol/L (22-30); Chloride 101 mmol/L (98-107); Estimated CRCL calculation 23 ml/min; Estimated Glomerular Filt Rate 27; Glucose 101 mg/dL (65-110); Potassium 4.2 mmol/L (3.4-5.0); Sodium 139 mmol/L (137-145)
[2021-10-11] MEDS: IPRATROPIUM BR 0.02% INH SOLN 0.5 MG/2.5 ML VIAL 1 MG INHALATION (17:07)
[2021-10-11] MEDS: ALBUTEROL SULFATE NEB 2.5 MG/0.5 ML INH 10 MG INHALATION (17:07)
[2021-10-11 17:15] LABS: Base Excess ABG 2.8 mEq/l (+/-2.0); Carboxyhemoglobin 0.3 % THb (0-2.0); Fractional Inspired Oxygen 21 %; HCO3 ABG 27.3 mEq/l (22.0-26.0); Methemoglobin ABG 0.1 %THb (0-1.5); Oxygen Content ABG 15.4 %vol (16.0-22.0); Oxygen Saturation ABG 98.7 % (95.0-100.0); Oxyhemoglobin 97.4 % THb (90.0-100.0); PCO2 ABG 41.9 mmHg (35.0-45.0); PO2 ABG 132.6 mmHg (80.0-100.0); PO2 FiO2 Ratio Arterial Blood 6.31 %; Reduced Hemoglobin 2.2 %THb (0-5.0); Total Hemoglobin 11.1 g/dL (12.0-18.0); pH ABG 7.432 (7.350-7.450)
--- NOTE | 2021-10-11 17:15 | PC.NURSE ---
Patient out of room for testing.
[2021-10-11 17:16] LABS: Device NASAL CANNULA; Modified Allen's Test Pass; Site Drawn LEFT RADIAL
[2021-10-11 17:34] LABS: INR 1.3; Prothrombin Time 15.6 Seconds (11.1-14.7)
[2021-10-11 17:35] LABS: Partial Thromboplastin Time 28.1 SECONDS (22.3-36.8)
[2021-10-11 17:37] LABS: NT Pro B Type Natriuretic Pept 6650 pg/mL (5-100)
[2021-10-11] MEDS: predniSONE 20 MG TABLET 60 MG PO (17:55)
[2021-10-11 18:36] LABS: SARS-CoV-2 RNA PCR Negative
== END 2021-10-11 19:24 | disposition home or self-care (01) ==
PROVIDERS: Family Medicine; Emergency Provider General Practice; PCP Family Medicine
DX: J44.1 Chronic obstructive pulmonary disease with (acute) exacerbation (principal); I82.511 Chronic embolism and thrombosis of right femoral vein; Z20.822 Contact with and (suspected) exposure to COVID-19; Z87.891 Personal history of nicotine dependence; D64.9 Anemia, unspecified; F41.9 Anxiety disorder, unspecified; M19.90 Unspecified osteoarthritis, unspecified site; I48.91 Unspecified atrial fibrillation; I25.10 Atherosclerotic heart disease of native coronary artery without angina pectoris; I11.0 Hypertensive heart disease with heart failure; I50.9 Heart failure, unspecified; K21.9 Gastro-esophageal reflux disease without esophagitis; F32.9 Major depressive disorder, single episode, unspecified; E78.5 Hyperlipidemia, unspecified; G47.30 Sleep apnea, unspecified; Z99.81 Dependence on supplemental oxygen; Z87.440 Personal history of urinary (tract) infections
CPT/HCPCS: 36415; 36600; 71046; 80053; 82375; 82805; 83050; 83880; 85025; 85610; 85730; 93005; 93970; 99284; C9803; J7512; U0003; U0005

== ENCOUNTER 2022-01-30 08:34 | Emergency (ER) | payer MEDICARE, MEDICAID, SELFPAY ==
[2022-01-30] VITALS (22 sets, daily range): BP systolic 137–189; BP diastolic 63–130; PULSE 66–79; RESP 13–23; TEMP 36.8; O2SAT 91–97
--- NOTE | ~2022-01-30 | CT_ITS ---
EXAMINATION: CT abdomen pelvis wo con DATE: 01/30/2022 09:29 INDICATION: Right upper quadrant abdominal pain. Nausea, constipation. TECHNIQUE: Computed tomography (CT) of the abdomen and pelvis was performed with 100 CC Omnipaque 300 intravenous contrast. Automated exposure control and iterative reconstruction technique were employe d. Exam dose: 1128.66 mGy-cm total exam DLP. COMPARISON: 10/23/2017 upper gastrointestinal series 01/05/[address] abdomen pelvis FINDINGS: There are calcified hepatic and splenic granulomas and calcified left lower lobe pulmonary granuloma consistent with old granulomatous disease. Moderate sliding hiatal hernia. Normal heart size. No pericardial or pleural effusion. No hepatic, splenic, pancreatic or adrenal space-occupying mass lesion is noted. The gallbladder is present. No gallbladder wall thickening or pericholecystic fluid or fat stranding. No bile duct or pancreatic duct dilatation. There is a punctate calcification of the body of the hall creas suggesting mild chronic pancreatitis. 3.3 cm exophytic cyst of the upper pole of the right kidney. 1.5 cm cyst at the upper pole of the lef t kidney. Punctate nonobstructing upper pole right renal calculus. 4 x 5 x 3 mm lower pole nonobstructing left renal calculus. No ureteral calculus or hydroureteronephrosis is noted on either side. The urinary bladder is unremar kable. Status post hysterectomy. There is extensive calcification of the abdominal aorta, prominent calcification at the origins of th e celiac and particularly superior mesenteric and renal arteries, especially right renal artery. No a bdominal aortic aneurysm. There is calcification of the iliac and femoral arteries. No intraperitoneal or retroperitoneal or pelvic mass lesion or adenopathy or ascites. No bowel obstruction, bowel wall thickening, pneumatosis or intraperitoneal free air. Small fat-containing umbilical hernia. Osteopenia. Degenerative changes of the thoracic and lumbar spine. No suspicious osteolytic or osteoblastic lesio ns are noted. IMPRESSION: Moderate sliding hiatal hernia Mild chronic pancreatitis Renal cysts Mild bilateral nonobstructive nephrolithiasis Status post hysterectomy Atherosclerosis Reviewed, dictated and finalized at [facility]. Reviewed, dictated and finalized at location A.
--- NOTE | ~2022-01-30 | XR_ITS ---
EXAMINATION: XR chest 1V portable DATE: 01/30/2022 08:58 INDICATION: Cough. Right-sided chest pain. TECHNIQUE: frontal view of the chest was obtained. COMPARISON: Chest radiograph dated 10/11/2021 FINDINGS: Calcified nodule in the left lower lung zone consistent with old granulomatous disease. Mild streaky left basilar atelectasis. No pulmonary edema, pleural effusion or pneumothorax. Heart size is normal. Small hiatal hernia. Moderate degenerative skeletal changes in the spine and at both shoulders. IMPRESSION: 1. Mild streaky left basilar atelectasis. Reviewed, dictated and finalized at location A.
--- NOTE | 2022-01-30 08:45 | ECG_ITS ---
Measurements Intervals [place] Rate: 65 P: 62 SC: 131 QRS: 33 QRSD: 79 T: 76 QT: 367 QTc: 384 Interpretive Statements SINUS RHYTHM WITH SINUS ARRHYTHMIA ATRIAL PREMATURE COMPLEXES LEFT VENTRICULAR HYPERTROPHY AND ST-T CHANGE BASELINE ARTIFACT- I, II, AVR, AVL, AVF, V1 BORDERLINE ECG Electronically Signed On 01-30-2022 10:56:51 CDT by Adams Beltran D.O.
--- NOTE | 2022-01-30 08:48 | ED.ABDPAIN ---
HPI - Abdominal Pain General Chief Complaint: Abdominal Pain Stated Complaint: RUQ pain 2-3 days Time Seen by Provider: 01/30/22 08:41 History of Present Illness HPI narrative: 81-year-old female who states that for the last 3 days she has been having pain in her right upper quadrant, nonradiating, she has also been having some constipation for the last few days, and nausea. Endorsing some chills, cough. No chest pain or difficulty breathing. Related Data Home Medications Medication Instructions Recorded Confirmed rosuvastatin 20 mg tablet 20 mg PO DAILY 06/05/19 01/16/21 fluoxetine 20 mg tablet 10 mg PO DAILY 01/14/20 01/16/21 potassium chloride 20 mEq 20 meq PO DAILY 12/01/20 01/16/21 tablet,extended release Allergies Allergy/AdvReac Type Severity Reaction Status Date / Time codeine Allergy Unknown Unknown Verified 01/30/22 09:50 Jyqxpak-PRZ-OwR Reductase Allergy Unknown myalgias Verified 01/30/22 09:50 Inhibitor [Vdxkjns-Udy-Eso Reductase Inhibitor] Sulfa (Sulfonamide Allergy Unknown Dizziness Verified 01/30/22 09:50 Antibiotics) Review of Systems Review of Systems: CONST: Chills HEENT: No sore throat C/V: No chest pain RESP: Cough GI: Reports abdominal pain, nausea, vomiting, constipation : No dysuria. M/S: No joint pain. SKIN: No rash. NEURO: [No headache or focal numbness or weakness] PSYCH: [No depression] [facility] Past Medical History Medical History Anemia Anxiety Arthritis Asthma Atrial fibrillation with RVR CAD (coronary artery disease) Cataracts, bilateral CHF (congestive heart failure) COPD (chronic obstructive pulmonary disease) CVA (cerebral vascular accident) Depression GERD (gastroesophageal reflux disease) History of kidney stones HLD (hyperlipidemia) HTN (hypertension) Hypercholesteremia Kidney stones Lupus Patient said she was diagnosed by 1 doctor and then another doctor said she did not have it On home O2 3 L Pneumonia Pulmonary embolism Sleep apnea Chronically on oxygen at 2.5 L. Does not use CPAP machine UTI (urinary tract infection) Surgical History Surgical History History of hysterectomy History of right knee joint replacement Hx of appendectomy Hx of bilateral cataract extraction Hx of tonsillectomy Family History Family History Mother Hypertension Family history of primary malignant neoplasm of liver Carcinoma of colon Sibling Hypertension Asthma Family history of elevated blood lipids Cerebrovascular accident Family history of malignant neoplasm of breast in first degree relative Family history of chronic obstructive pulmonary disease Family history of congestive heart failure Father Family history of coronary artery disease Family history of heart disease in male family member before age 55 Hypertension Acute myocardial infarction Family history of congestive heart failure Other Family history of arthritis Social History Social History Social History: Her daughter Zo is a durable power ldr nurse for healthcare. The patient is a full code. She is retired from [employer]. She has 3 daughters and 1 son. She lives home alone. She is . The patient stated she quit smoking back in the 80s. She denies any alcohol, marijuana or illicit drug use. Smoking packs per day: 1.5 Smoking cigarettes per day: 30.0 Years smoked: 35 Smoking pack-years: 52.50 Smoking status: Former smoker Tobacco type: cigarettes Second hand tobacco smoke exposure: No Smoking end date: 07/29/95 Alcohol intake: never Substance use: never Substance use type: does not use Gender identity (if verbalized by the patient): Female Spiritual care concerns: No Agree to blood products: Yes Exam Narrative:
[2022-01-30 08:58] LABS: Basophils Absolute Auto 0.1 K/mm3 (0.0-0.1); Basophils Percent Auto 1.2 % (0.2-1.2); Eosinophils Absolute Auto 0.2 K/mm3 (0-0.3); Eosinophils Percent Auto 4.2 % (0-4.4); Hematocrit 32.8 % (37.0-47.0); Hemoglobin 10.1 g/dL (12.0-15.0); Immature Granulocyte Absolute 0.02 K/mm3 (0.00-0.031); Immature Granulocyte Percent A 0.4 % (0-0.5); Lymphocytes Absolute Auto 1.12 K/mm3 (0.9-3.2); Lymphocytes Percent Auto 21.6 % (18.3-44.2); Mean Corpuscular HGB Conc 30.8 g/dl (32-36); Mean Corpuscular Hemoglobin 29.6 pg (26-34); Mean Corpuscular Volume 96.2 fl (80-100); Monocytes Absolute Auto 1.1 K/mm3 (0.1-0.6); Monocytes Percent Auto 20.8 % (2.6-8.5); Neutrophils Absolute Auto 2.7 K/mm3 (1.3-6.7); Neutrophils Percent Auto 51.8 % (45.5-73.1); Platelet Count Result 197 k/mm3 (150-375); Red Blood Count 3.41 M/mm3 (4.2-5.4); Red Cell Distribution Width 13.5 % (11.5-14.5); White Blood Count 5.2 K/mm3 (4.5-10.0)
[2022-01-30 09:08] LABS: Alanine Aminotransferase 16 U/L (6-35); Albumin Level 3.7 g/dL (3.5-5.1); Alkaline Phosphatase 68 U/L (38-126); Anion Gap 3 mmol/L (8-16); Aspartate Amino Transferase 31 U/L (14-36); Bilirubin,Total 0.3 mg/dL (0.2-1.3); Blood Urea Nitrogen 56 mg/dL (7-17); Calcium 9.4 mg/dL (8.4-10.2); Carbon Dioxide 36 mmol/L (22-30); Chloride 97 mmol/L (98-107); Estimated Glomerular Filt Rate 22; Glucose 89 mg/dL (65-110); Lipase 130 U/L (23-300); Potassium 4.7 mmol/L (3.4-5.0); Sodium 136 mmol/L (137-145)
[2022-01-30 09:12] LABS: INR 1.4; Prothrombin Time 16.7 Seconds (11.1-14.7)
[2022-01-30 09:13] LABS: Partial Thromboplastin Time 29.5 SECONDS (22.3-36.8)
[2022-01-30 09:20] LABS: Troponin I 0.015 ng/mL (0.000-0.034)
[2022-01-30] MEDS: ONDANSETRON INJ 4 MG/2 ML VIAL IV PUSH (09:56)
[2022-01-30] MEDS: MORPHINE SULFATE (*CRX) 4 MG/ML INJ IV PUSH (09:56)
[2022-01-30] MEDS: LACTATED RINGERS 1,000 ML 999 ML IV CONT (10:44)
[2022-01-30 10:58] LABS: Appearance Urine Clear (Clear); Bilirubin Urine Negative (Negative); Blood Urine Negative (Negative); Glucose Urine UA 2+ mg/dL (Negative); Ketones Urine Negative (Negative); Leukocyte Esterase Ur Negative LEU/UL (Negative); Nitrate Urine Negative (Negative); Protein Urine Trace mg/dL (Negative); Urobilinogen Urine 0.2 mg/dL (<2.0); pH Urine 5.5 (5.0-9.0)
[2022-01-30 11:00] LABS: Add Urine Microscopic? YES; Color Urine Light Yellow (Yellow)
[2022-01-30 11:11] LABS: Mucus Urine Rare /lpf; RBC Urine 0-2 /hpf (0-2); Squamous Epithelial Cell Urine Rare /hpf (Few); WBC Urine 0-3 /hpf
== END 2022-01-30 11:30 ==
PROVIDERS: Emergency Provider Emergency Medicine; PCP Physician Assistant
DX: R10.11 Right upper quadrant pain (principal); I25.10 Atherosclerotic heart disease of native coronary artery without angina pectoris; I50.9 Heart failure, unspecified; I11.0 Hypertensive heart disease with heart failure; J44.9 Chronic obstructive pulmonary disease, unspecified; D64.9 Anemia, unspecified; K21.9 Gastro-esophageal reflux disease without esophagitis; E78.5 Hyperlipidemia, unspecified; F41.9 Anxiety disorder, unspecified; F32.A Depression, unspecified; G47.30 Sleep apnea, unspecified; Z86.711 Personal history of pulmonary embolism; Z87.442 Personal history of urinary calculi; Z86.73 Personal history of transient ischemic attack (TIA), and cerebral infarction without residual deficits; Z87.440 Personal history of urinary (tract) infections; Z87.01 Personal history of pneumonia (recurrent); Z99.81 Dependence on supplemental oxygen; Z96.651 Presence of right artificial knee joint; Z98.42 Cataract extraction status, left eye; Z98.41 Cataract extraction status, right eye; I51.7 Cardiomegaly; Z87.891 Personal history of nicotine dependence; K44.9 Diaphragmatic hernia without obstruction or gangrene; K86.1 Other chronic pancreatitis; N28.1 Cyst of kidney, acquired; I49.1 Atrial premature depolarization; Z79.01 Long term (current) use of anticoagulants
CPT/HCPCS: 36415; 71045; 74176; 80053; 81001; 83690; 84484; 85025; 85610; 85730; 93005; 96361; 96374; 96375; 99284; J2270; J2405; J7120

== ENCOUNTER 2022-05-07 10:35 | Outpatient (CLI) | payer MEDICARE, SELFPAY ==
--- NOTE | ~2022-05-07 | US_ITS ---
EXAMINATION: US renal BI DATE: 05/07/2022 11:34 INDICATION: Chronic kidney disease TECHNIQUE: Multiple ultrasound grayscale images of the kidneys were obtained. COMPARISON: CT dated 01/30/22 FINDINGS: The right kidney measures 8.5 x 4.5 x 5.4 cm. The left kidney measures 8.8 x 4.9 x 4.5 cm. The kidney s demonstrate normal echogenicity. 2.9 cm anechoic cyst at the upper pole of the right kidney. There is no hydronephrosis in either kidney. No stones identified. The bladder is normal. IMPRESSION: 1. Likely age-related mild bilateral renal atrophy with 2.9 cm right renal cyst. No hydronephrosis. Reviewed, dictated and finalized at location B. IMPRESSION: 1. Likely age-related mild bilateral renal atrophy with 2.9 cm right renal cys t. No hydronephrosis.
[2022-05-07 12:06] LABS: Basophils Percent Auto 0.7 % (0.2-1.2); Eosinophils Absolute Auto 0.2 K/mm3 (0-0.3); Hemoglobin 10.7 g/dL (12.0-15.0); Immature Granulocyte Absolute 0.01 K/mm3 (0.00-0.031); Immature Granulocyte Percent A 0.2 % (0-0.5); Lymphocytes Absolute Auto 1.25 K/mm3 (0.9-3.2); Mean Corpuscular HGB Conc 29.7 g/dl (32-36); Mean Corpuscular Volume 97.6 fl (80-100); Monocytes Absolute Auto 0.8 K/mm3 (0.1-0.6); Monocytes Percent Auto 14.6 % (2.6-8.5); Neutrophils Absolute Auto 3.3 K/mm3 (1.3-6.7); Neutrophils Percent Auto 58.5 % (45.5-73.1); Platelet Count Result 132 k/mm3 (150-375); Red Blood Count 3.69 M/mm3 (4.2-5.4); Red Cell Distribution Width 15.4 % (11.5-14.5); White Blood Count 5.7 K/mm3 (4.5-10.0)
[2022-05-07 12:17] LABS: Albumin Level 4.1 g/dL (3.5-5.1); Anion Gap 10 mmol/L (8-16); Blood Urea Nitrogen 55 mg/dL (7-17); Calcium 9.6 mg/dL (8.4-10.2); Carbon Dioxide 35 mmol/L (22-30); Chloride 97 mmol/L (98-107); Estimated Glomerular Filt Rate 21; Glucose 106 mg/dL (65-110); Phosphorus 3.6 mg/dL (2.5-4.5); Potassium 4.9 mmol/L (3.4-5.0); Sodium 142 mmol/L (137-145); Uric Acid 6.5 mg/dL (2.5-7.5)
[2022-05-07 12:28] LABS: Hemoglobin A1C 5.8 % (<5.7)
[2022-05-07 12:51] LABS: Add Urine Microscopic? YES; Appearance Urine Clear (Clear); Bilirubin Urine Negative (Negative); Blood Urine Negative (Negative); Color Urine Yellow (Yellow); Glucose Urine UA 3+ mg/dL (Negative); Ketones Urine Negative (Negative); Leukocyte Esterase Ur Negative LEU/UL (NEGATIVE); Nitrate Urine Negative (Negative); Protein Urine Negative (Negative); RBC Urine 0-2 /hpf (0-2); Specific Grav Ur 1.015 (1.001-1.035); Squamous Epithelial Cell Urine Few /hpf (Few); Urobilinogen Urine Negative mg/dL (<2.0); WBC Urine 0-3 /hpf (0-3)
[2022-05-07 12:57] LABS: Creatinine Urine 88.5 mg/dL; Total Protein Urine Random 17 mg/dL; Ur Ttl Prot Creatinine Ratio 0.19 mg/mg (0-0.20)
== END 2022-05-07 10:36 | disposition home or self-care (01) ==
PROVIDERS: PCP Physician Assistant; Visit Provider Internal Medicine Nephrology
DX: N18.9 Chronic kidney disease, unspecified (principal); N26.1 Atrophy of kidney (terminal); I10 Essential (primary) hypertension
CPT/HCPCS: 36415; 76775; 80069; 81001; 82570; 83036; 84156; 84550; 85025; 86038; 86039

== ENCOUNTER 2022-10-16 14:19 | Outpatient (RCR) | payer MEDICARE, MEDICAID, SELFPAY ==
[2022-10-18 09:15] VITALS: BMI 34.2
[2022-10-18 15:04] VITALS: BMI 34.2
== END 2022-12-31 14:11 | disposition home or self-care (01) ==
LOC: ANHDMC 14:19
PROVIDERS: PCP Physician Assistant; Visit Provider Physician Assistant
DX: N18.4 Chronic kidney disease, stage 4 (severe) (principal); Z71.3 Dietary counseling and surveillance
CPT/HCPCS: 97802

== ENCOUNTER 2023-03-13 16:03 | Outpatient (CLI) | payer MEDICARE, MEDICAID, SELFPAY ==
[2023-03-13 17:23] LABS: Basophils Absolute Auto 0.1 K/mm3 (0.0-0.1); Basophils Percent Auto 1.3 % (0.2-1.2); Eosinophils Absolute Auto 0.2 K/mm3 (0-0.3); Eosinophils Percent Auto 3.7 % (0-4.4); Hematocrit 41.6 % (37.0-47.0); Hemoglobin 12.6 g/dL (12.0-15.0); Immature Granulocyte Absolute 0.01 K/mm3 (0.00-0.031); Immature Granulocyte Percent A 0.2 % (0-0.5); Lymphocytes Absolute Auto 1.39 K/mm3 (0.9-3.2); Lymphocytes Percent Auto 25.7 % (18.3-44.2); Mean Corpuscular HGB Conc 30.3 g/dl (32-36); Mean Corpuscular Hemoglobin 30.1 pg (26-34); Mean Corpuscular Volume 99.3 fl (80-100); Mean Platelet Volume 12.9 fl (7.4-10.4); Monocytes Absolute Auto 0.8 K/mm3 (0.1-0.6); Monocytes Percent Auto 13.9 % (2.6-8.5); Neutrophils Percent Auto 55.2 % (45.5-73.1); Platelet Count Result 142 k/mm3 (150-375); Red Blood Count 4.19 M/mm3 (4.2-5.4); Red Cell Distribution Width 13.7 % (11.5-14.5); White Blood Count 5.4 K/mm3 (4.5-10.0)
[2023-03-13 17:30] LABS: Creatinine Urine 32.9 mg/dL; Total Protein Urine Random 10 mg/dL
[2023-03-13 17:34] LABS: Albumin Level 4.1 g/dL (3.5-5.1); Anion Gap 3 mmol/L (8-16); Blood Urea Nitrogen 42 mg/dL (7-17); Calcium 9.5 mg/dL (8.4-10.2); Carbon Dioxide 33 mmol/L (22-30); Chloride 101 mmol/L (98-107); Estimated Glomerular Filt Rate 24; Glucose 89 mg/dL (65-110); Phosphorus 3.7 mg/dL (2.5-4.5); Potassium 5.4 mmol/L (3.4-5.0); Sodium 137 mmol/L (137-145)
[2023-03-13 17:37] LABS: Hemoglobin A1C 5.6 % (<5.7)
== END 2023-03-13 16:04 | disposition home or self-care (01) ==
PROVIDERS: PCP Physician Assistant; Visit Provider Internal Medicine Nephrology
DX: E11.21 Type 2 diabetes mellitus with diabetic nephropathy (principal); N18.4 Chronic kidney disease, stage 4 (severe)
CPT/HCPCS: 36415; 80069; 82570; 83036; 84156; 85025

== ENCOUNTER 2023-05-14 14:35 | Outpatient (CLI) | payer MEDICARE, MEDICAID, SELFPAY ==
[2023-05-14 15:58] LABS: Basophils Absolute Auto 0.1 K/mm3 (0.0-0.1); Basophils Percent Auto 1.1 % (0.2-1.2); Eosinophils Absolute Auto 0.2 K/mm3 (0-0.3); Eosinophils Percent Auto 3.1 % (0-4.4); Hematocrit 39.4 % (37.0-47.0); Hemoglobin 11.7 g/dL (12.0-15.0); Immature Granulocyte Absolute 0.01 K/mm3 (0.00-0.031); Immature Granulocyte Percent A 0.2 % (0-0.5); Lymphocytes Absolute Auto 1.34 K/mm3 (0.9-3.2); Lymphocytes Percent Auto 24.6 % (18.3-44.2); Mean Corpuscular HGB Conc 29.7 g/dl (32-36); Mean Corpuscular Hemoglobin 29.9 pg (26-34); Mean Corpuscular Volume 100.8 fl (80-100); Monocytes Absolute Auto 0.7 K/mm3 (0.1-0.6); Monocytes Percent Auto 13.1 % (2.6-8.5); Neutrophils Absolute Auto 3.2 K/mm3 (1.3-6.7); Neutrophils Percent Auto 57.9 % (45.5-73.1); Platelet Count Result 145 k/mm3 (150-375); Red Blood Count 3.91 M/mm3 (4.2-5.4); Red Cell Distribution Width 14.3 % (11.5-14.5); White Blood Count 5.4 K/mm3 (4.5-10.0)
[2023-05-14 16:07] LABS: Anion Gap 3 mmol/L (8-16); Blood Urea Nitrogen 41 mg/dL (7-17); Calcium 9.4 mg/dL (8.4-10.2); Carbon Dioxide 34 mmol/L (22-30); Chloride 101 mmol/L (98-107); Estimated Glomerular Filt Rate 24; Glucose 87 mg/dL (65-110); Potassium 4.7 mmol/L (3.4-5.0); Sodium 138 mmol/L (137-145)
[2023-05-14 16:15] LABS: Appearance Urine Cloudy (Clear); Bacteria Urine Rare /hpf; Bilirubin Urine Negative (Negative); Blood Urine Negative (Negative); Color Urine Yellow (Yellow); Glucose Urine UA 3+ mg/dL (Negative); Ketones Urine Negative (Negative); Leukocyte Esterase Ur Trace LEU/UL (NEGATIVE); Nitrate Urine Negative (Negative); Non Pathogenic Casts 0-2; Protein Urine 1+ mg/dL (Negative); RBC Urine 0-2 /hpf (0-2); Specific Grav Ur 1.018 (1.001-1.035); Squamous Epithelial Cell Urine Few /hpf (Few); WBC Urine 0-5 /hpf (0-3)
[2023-05-14 16:21] LABS: Hypochromasia 1+ (NORMAL); Platelet Estimate Adequate (Adequate); Schistocytes None Seen (NORMAL); Stomatocytes 1+ (NORMAL)
[2023-05-14 16:23] LABS: Add Urine Microscopic? YES
== END 2023-05-14 14:36 | disposition home or self-care (01) ==
PROVIDERS: PCP Physician Assistant; Visit Provider Internal Medicine Nephrology
DX: E11.22 Type 2 diabetes mellitus with diabetic chronic kidney disease (principal); I12.9 Hypertensive chronic kidney disease with stage 1 through stage 4 chronic kidney disease, or unspecified chronic kidney disease; N18.4 Chronic kidney disease, stage 4 (severe)
CPT/HCPCS: 36415; 80048; 81001; 85025

== ENCOUNTER 2023-09-02 12:22 | Outpatient (CLI) | payer MEDICARE, MEDICAID, SELFPAY ==
[2023-09-02 13:14] LABS: Basophils Percent Auto 0.7 % (0.2-1.2); Eosinophils Absolute Auto 0.2 K/mm3 (0-0.3); Eosinophils Percent Auto 3.4 % (0-4.4); Hematocrit 40.7 % (37.0-47.0); Hemoglobin 12.2 g/dL (12.0-15.0); Immature Granulocyte Absolute 0.01 K/mm3 (0.00-0.031); Immature Granulocyte Percent A 0.2 % (0-0.5); Lymphocytes Absolute Auto 0.85 K/mm3 (0.9-3.2); Lymphocytes Percent Auto 15.1 % (18.3-44.2); Mean Corpuscular Hemoglobin 29.9 pg (26-34); Mean Corpuscular Volume 99.8 fl (80-100); Mean Platelet Volume 11.9 fl (7.4-10.4); Monocytes Absolute Auto 0.7 K/mm3 (0.1-0.6); Monocytes Percent Auto 11.7 % (2.6-8.5); Neutrophils Absolute Auto 3.9 K/mm3 (1.3-6.7); Neutrophils Percent Auto 68.9 % (45.5-73.1); Platelet Count Result 156 k/mm3 (150-375); Red Blood Count 4.08 M/mm3 (4.2-5.4); White Blood Count 5.6 K/mm3 (4.5-10.0)
[2023-09-02 13:20] LABS: Appearance Urine Clear (Clear); Bacteria Urine None Seen /hpf; Bilirubin Urine Negative (Negative); Blood Urine Negative (Negative); Color Urine Yellow (Yellow); Glucose Urine UA 3+ mg/dL (Negative); Ketones Urine Negative (Negative); Leukocyte Esterase Ur Negative LEU/UL (Negative); Nitrate Urine Negative (Negative); Non Pathogenic Casts 0-2; Protein Urine 1+ mg/dL (Negative); RBC Urine 0-2 /hpf (0-2); Specific Grav Ur 1.017 (1.001-1.035); Squamous Epithelial Cell Urine Moderate /hpf (Few); WBC Urine 0-5 /hpf
[2023-09-02 13:21] LABS: Total Protein Urine Random 34 mg/dL; Ur Ttl Prot Creatinine Ratio 0.49 mg/mg (0-0.20)
[2023-09-02 13:22] LABS: Add Urine Microscopic? YES
[2023-09-02 13:27] LABS: Albumin Level 3.8 g/dL (3.5-5.1); Anion Gap 2 mmol/L (8-16); Blood Urea Nitrogen 27 mg/dL (7-17); Calcium 9.4 mg/dL (8.4-10.2); Carbon Dioxide 35 mmol/L (22-30); Chloride 102 mmol/L (98-107); Estimated Glomerular Filt Rate 29; Glucose 95 mg/dL (65-110); Phosphorus 2.9 mg/dL (2.5-4.5); Potassium 4.8 mmol/L (3.4-5.0); Sodium 139 mmol/L (137-145)
[2023-09-02 13:44] LABS: Parathyroid Intact 198.3 pg/mL (7.5-53.5)
[2023-09-02 17:14] LABS: Vitamin D 25 Hydroxy < 12.8 ng/mL
== END 2023-09-02 12:23 | disposition home or self-care (01) ==
LOC: ANHLAB 12:27
PROVIDERS: PCP Physician Assistant; Visit Provider Internal Medicine Nephrology
DX: E55.9 Vitamin D deficiency, unspecified (principal); I12.9 Hypertensive chronic kidney disease with stage 1 through stage 4 chronic kidney disease, or unspecified chronic kidney disease; N18.4 Chronic kidney disease, stage 4 (severe); E11.8 Type 2 diabetes mellitus with unspecified complications
CPT/HCPCS: 36415; 80069; 81001; 82306; 82570; 83970; 84156; 85025

== ENCOUNTER 2023-10-22 13:06 | Inpatient (IN) | payer MEDICARE, MEDICAID, SELFPAY ==
[2023-10-22] VITALS (28 sets, daily range): BP systolic 129–188; BP diastolic 61–101; PULSE 71–101; RESP 14–29; TEMP 36.6–36.7; O2SAT 83–100; BMI 36.6
--- NOTE | ~2023-10-22 | XR_ITS ---
EXAMINATION: XR chest 2V DATE: 10/22/2023 13:55 INDICATION: shortness of breath and hypoxia TECHNIQUE: frontal and lateral views of the chest were obtained. COMPARISON: Chest radiograph dated 01/30/2022 FINDINGS: Calcified nodule in the left lower lung zone consistent with old granulomatous disease. Mild opacitie s at the left lung base with blunting at the posterior sulcus. No pneumothorax. Heart size is within normal limits for AP technique. Small hiatal hernia at the medial left lung base. Moderate thoracic s pondylosis. IMPRESSION: 1. Mild opacity left lung base with blunting at the posterior sulcus consistent with small left pleur al effusion and associated atelectasis and/or pneumonia. 2. Small hiatal hernia. Reviewed, dictated and finalized at location A. IMPRESSION: 1. Mild opacity left lung base with blunting at the posterior sulcus consistent with small left pleural effusion and associated atelectasis and/or pneumonia. 2. Small hiatal hernia.
--- NOTE | 2023-10-22 13:13 | ECG_ITS ---
Measurements Intervals [place] Rate: 77 P: HI: 0 QRS: 22 QRSD: 79 T: 60 QT: 369 QTc: 419 Interpretive Statements SINUS RHYTHM ATRIAL PREMATURE COMPLEXES NONSPECIFIC ST-T WAVE ABNORMALITY- HIGH LATERAL LEADS BASELINE ARTIFACT- I, II, III, AVR, AVL, AVF, V1-V6 BORDERLINE ECG COMPARED TO ECG 01/30/2022 08:50:30 ST-T WAVE ABNORMALITY NOW PRESENT Electronically Signed On 10-22-2023 16:07:13 CDT by Adams Beltran D.O.
--- NOTE | 2023-10-22 13:14 | ED.SOB ---
HPI - SOB/Dyspnea General Chief Complaint: Shortness of Breath/Dyspnea <Tona Bonilla PA-C - Last Filed: 10/25/23 09:15> Stated Complaint: shortness of breath <Tona Bonilla PA-C - Last Filed: 10/25/23 09:15> Time Seen by Provider: 10/22/23 13:10 <Tona Bonilla PA-C - Last Filed: 10/25/23 09:15> Focused HPI: This is a 83 year old female that presents to the ER for dyspnea. Worsening over the last week. Reports associated cough, wheezing. History of COPD. Wears oxygen at home as needed. Noted to be hypoxic in the upper 80s on room air. GENERAL: Well-appearing, well-nourished, and in no acute distress. HEAD: Normocephalic, atraumatic. CHEST: No respiratory distress. Lung sounds diminished with diffuse expiratory wheezing HEART: Regular rate and rhythm.? NEURO: ?Alert and oriented x3. Patient screened in triage and initial orders placed.? ?Additional care and disposition to be based upon?diagnostic testing and treatment. <Tona Bonilla PA-C - Last Filed: 10/25/23 09:15> History of Present Illness HPI Narrative: 83-year-old female presenting to the emergency department for evaluation of cough and shortness of breath. Patient does have access to oxygen at home but only wears it intermittently. Patient was saturating 80% room air upon arrival to the emergency department. <Burke Nassar MD - Last Filed: 10/24/23 21:41> Related Data Home Medications: Home Medications Medication Instructions Recorded Confirmed rosuvastatin 20 mg tablet 20 mg PO DAILY 06/05/19 10/22/23 albuterol sulfate 90 mcg/actuation 2 inh inhalation QID PRN Shortness 10/22/23 10/22/23 aerosol inhaler Of Breath Or Wheezing clonidine HCl 0.1 mg tablet 0.1 mg PO HS 10/22/23 10/22/23 dapagliflozin propanediol 5 mg 5 mg PO DAILY 10/22/23 10/22/23 tablet (Farxiga) furosemide 20 mg tablet 20 mg PO DAILY 10/22/23 10/22/23 metoprolol tartrate 25 mg tablet 25 mg PO BID 10/22/23 10/22/23 apixaban 2.5 mg tablet (Eliquis) 2.5 mg PO BID 10/23/23 10/23/23 <Tona Bonilla PA-C - Last Filed: 10/25/23 09:15> Allergies/Adverse Reactions: Allergies Allergy/AdvReac Type Severity Reaction Status Date / Time codeine Allergy Unknown Unknown Verified 01/30/22 09:50 Cydjswa-AND-VgW Reductase Allergy Unknown myalgias Verified 01/30/22 09:50 Inhibitor [Bfdrvhj-Hap-Joo Reductase Inhibitor] Sulfa (Sulfonamide AdvReac Unknown Dizziness Verified 10/23/23 07:02 Antibiotics) <Tona Bonilla PA-C - Last Filed: 10/25/23 09:15> Review of Systems Review of Systems: All systems reviewed & are unremarkable except as noted in HPI and below <Burke Nassar MD - Last Filed: 10/24/23 21:41> [facility] Past Medical History Medical History: Medical History (Updated 10/25/23 @ 09:15 by Tona Bonilla PA-C) Anemia Anxiety Arthritis Asthma Cerebrovascular accident Chronic interstitial lung disease Chest CT in October 2020 with appearance of mild chronic interstitial lung disease and mild bronchiectasis. Chronic obstructive pulmonary disease Chronic respiratory failure with hypoxia, on home oxygen therapy Coronary artery disease Deep venous thrombosis Depression Diastolic congestive heart failure Gastroesophageal reflux disease Hyperlipidemia Hypertension Kidney stones Paroxysmal atrial fibrillation Pulmonary embolism Sleep apnea On oxygen, does not use CPAP. <Tona Bonilla PA-C - Last Filed: 10/25/23 09:15> Surgical History Surgical History: Surgical History History of appendectomy History of cataract extraction History of hysterectomy History of right knee joint replacement History of tonsillectomy <Tona Bonilla PA-C - Last Filed: 10/25/23 09:15> Family History Family History: Family History Mother Hypertension Family history of primary malignant neoplasm
[2023-10-22 13:42] LABS: Basophils Percent Auto 0.8 % (0.2-1.2); Eosinophils Absolute Auto 0.2 K/mm3 (0-0.3); Eosinophils Percent Auto 4.6 % (0-4.4); Hematocrit 35.2 % (37.0-47.0); Hemoglobin 10.3 g/dL (12.0-15.0); Immature Granulocyte Absolute 0.01 K/mm3 (0.00-0.031); Immature Granulocyte Percent A 0.2 % (0-0.5); Lymphocytes Absolute Auto 1.07 K/mm3 (0.9-3.2); Lymphocytes Percent Auto 20.6 % (18.3-44.2); Mean Corpuscular HGB Conc 29.3 g/dl (32-36); Mean Corpuscular Hemoglobin 29.5 pg (26-34); Mean Corpuscular Volume 100.9 fl (80-100); Mean Platelet Volume 11.6 fl (7.4-10.4); Monocytes Absolute Auto 0.7 K/mm3 (0.1-0.6); Monocytes Percent Auto 14.3 % (2.6-8.5); Neutrophils Absolute Auto 3.1 K/mm3 (1.3-6.7); Neutrophils Percent Auto 59.5 % (45.5-73.1); Platelet Count Result 157 k/mm3 (150-375); Red Blood Count 3.49 M/mm3 (4.2-5.4); Red Cell Distribution Width 14.6 % (11.5-14.5); White Blood Count 5.2 K/mm3 (4.5-10.0)
[2023-10-22 13:56] LABS: Alanine Aminotransferase 15 U/L (6-35); Alkaline Phosphatase 78 U/L (38-126); Anion Gap 1 mmol/L (4-12); Aspartate Amino Transferase 36 U/L (14-36); Bilirubin,Total 0.7 mg/dL (0.2-1.3); Blood Urea Nitrogen 26 mg/dL (7-17); Calcium 9.5 mg/dL (8.4-10.2); Carbon Dioxide 37 mmol/L (22-30); Chloride 99 mmol/L (98-107); Estimated CRCL calculation 28 ml/min; Estimated Glomerular Filt Rate 36; Glucose 96 mg/dL (65-110); Potassium 4.6 mmol/L (3.4-5.0); Sodium 137 mmol/L (137-145)
[2023-10-22 13:58] LABS: INR 1.1; Prothrombin Time 14.5 Seconds (11.1-14.7)
[2023-10-22 14:07] LABS: Platelet Estimate Adequate (Adequate); Schistocytes None Seen; Stomatocytes 1+
[2023-10-22 14:18] LABS: Influenza A QL RT-PCR Negative (Negative); Influenza B QL RT-PCR Negative (Negative); RSV RNA, RT-PCR Negative (Negative); SARS-CoV-2 RNA PCR Negative (Negative)
[2023-10-22] MEDS: FUROSEMIDE INJ 40 MG/4 ML VIAL IV PUSH ×2 (15:22→23:23)
[2023-10-22] MEDS: ALBUTEROL SULFATE NEB 2.5 MG/3 ML INH INHALATION ×2 (15:36→21:08)
--- NOTE | 2023-10-22 15:36 | PC.NURSE ---
purwick applied after Lasix administration or pt comfort
[2023-10-22] MEDS: AZITHROMYCIN 500 MG/NS 250 ML 500 MG/250 ML BAG 250 MG IVPB (17:00)
--- NOTE | 2023-10-22 18:22 | PM.IMHP ---
H&P: HPI History of Present Illness Date/Time: 10/22/23 19:15 Chief Complaint: Shortness of breath. Narrative: This is a very pleasant 83-year-old female with chronic obstructive pulmonary disease, chronic hypoxic respiratory failure on home oxygen, diastolic dysfunction, hypertension, hyperlipidemia, pulmonary embolism, chronic kidney disease, and other comorbidities who presented to the emergency department via private vehicle for evaluation of shortness of breath. The patient provides the following history. Over the past week or so she has developed a cough productive of cream-colored sputum in addition to wheezing and increasing dyspnea on lesser and lesser exertion. She has been using her nebulizers at home but that provides her with only a small amount of relief. She has chronic lower extremity edema and orthopnea which is relatively unchanged. She denies fever, chills, sweats, chest and pleuritic pain, palpitations, nausea, vomiting, diarrhea, and calf pain. In the ED: She was afebrile on arrival with with blood pressures in the 160s to 180s systolic. She arrived without her oxygen on and her SpO2 was 89% on room air. CMP and CBC are stable compared to prior labs. She tested negative for influenza, RSV, and COVID. Chest x-ray showed findings of small left-sided effusion with associated atelectasis and/or pneumonia. She was given a nebulizer treatment, Solu-Medrol, and a dose of azithromycin and ceftriaxone and she is being admitted in this setting for further treatment. Review of Systems Review of Systems: 12 systems were reviewed and are negative except for as per HPI. [facility] Past Medical History Medical History Anemia Anxiety Arthritis Asthma Cerebrovascular accident Chronic interstitial lung disease Chest CT in October 2020 with appearance of mild chronic interstitial lung disease and mild bronchiectasis. Chronic obstructive pulmonary disease Chronic respiratory failure with hypoxia, on home oxygen therapy Coronary artery disease Deep venous thrombosis Depression Diastolic congestive heart failure Gastroesophageal reflux disease Hyperlipidemia Hypertension Kidney stones Paroxysmal atrial fibrillation Pulmonary embolism Sleep apnea On oxygen, does not use CPAP. Surgical History Surgical History History of appendectomy History of cataract extraction History of hysterectomy History of right knee joint replacement History of tonsillectomy Family History Family History Mother Hypertension Family history of primary malignant neoplasm of liver Carcinoma of colon Sibling Hypertension Asthma Family history of elevated blood lipids Cerebrovascular accident Family history of malignant neoplasm of breast in first degree relative Family history of chronic obstructive pulmonary disease Family history of congestive heart failure Father Family history of coronary artery disease Family history of heart disease in male family member before age 55 Hypertension Acute myocardial infarction Family history of congestive heart failure Other Family history of arthritis Social History Social History Social History: Surrogate medical decision maker: Yessica Kinney, daughter. Code status: Full code. Smoking packs per day: 1.5 Smoking cigarettes per day: 30.0 Years smoked: 35 Smoking pack-years: 52.50 Smoking status: Former smoker Tobacco type: cigarettes Second hand tobacco smoke exposure: No Alcohol intake: never Substance use: never Substance use type: does not use Do You Feel Safe in your Home?: Yes Lack of Transportation: No Lack of Food: Never True Current Housing: I Have Housing Concerned About Future Housing: No Difficulty Paying Gas/
--- NOTE | 2023-10-22 18:40 | ADMGEN ---
This patient, Anna Jones, was admitted to 2 Medical Room 260-01. Patient/family oriented to hospital policies and general routines including ID bracelet, bed and alarms, visiting hours, pain management, procedures, bathroom and other care routines, personal items, smoking policy, room service/diet, and visiting hours. Information on how to activate the Rapid Response Team has been discussed. Patient/Family are encouraged to report perceived risks to care and to ask questions if they do not understand what they are told or what they should do.
[2023-10-22] MEDS: methylPREDNISolone SOD SUCC 125 MG VIAL 60 MG IV PUSH ×2 (18:54→23:23)
[2023-10-22] MEDS: ACETAMINOPHEN 325 MG TABLET 650 MG PO (20:47)
[2023-10-22] MEDS: guaiFENesin 12 HR 600 MG TABCR PO (20:47)
[2023-10-22] MEDS: IPRATROPIUM BR 0.02% INH SOLN 0.5 MG/2.5 ML VIAL INHALATION (21:07)
[2023-10-22 22:07] LABS: Magnesium 2.2 mg/dL (1.6-2.3)
[2023-10-22 22:15] LABS: NT Pro B Type Natriuretic Pept 9680 pg/mL (19.9-100)
[2023-10-22 23:23] LABS: Potassium 4.5 mmol/L (3.4-5.0)
[2023-10-23] VITALS (15 sets, daily range): BP systolic 143–150; BP diastolic 57–80; PULSE 77–90; RESP 12–20; TEMP 36.3–36.6; O2SAT 92–95
[2023-10-23] MEDS: ALBUTEROL SULFATE NEB 2.5 MG/3 ML INH INHALATION ×4 (02:02→21:05)
[2023-10-23] MEDS: IPRATROPIUM BR 0.02% INH SOLN 0.5 MG/2.5 ML VIAL INHALATION ×4 (02:02→21:05)
[2023-10-23] MEDS: methylPREDNISolone SOD SUCC 125 MG VIAL 60 MG IV PUSH ×2 (05:44→12:40)
[2023-10-23 05:47] LABS: Hemoglobin 10.3 g/dL (12.0-15.0); Mean Corpuscular HGB Conc 29.4 g/dl (32-36); Mean Corpuscular Volume 98.6 fl (80-100); Mean Platelet Volume 12.9 fl (7.4-10.4); Platelet Count Result 150 k/mm3 (150-375); Red Blood Count 3.55 M/mm3 (4.2-5.4); Red Cell Distribution Width 14.6 % (11.5-14.5)
[2023-10-23 06:00] LABS: Anion Gap 4 mmol/L (4-12); Blood Urea Nitrogen 28 mg/dL (7-17); Calcium 9.4 mg/dL (8.4-10.2); Carbon Dioxide 38 mmol/L (22-30); Chloride 98 mmol/L (98-107); Estimated CRCL calculation 24 ml/min; Estimated Glomerular Filt Rate 31; Glucose 167 mg/dL (65-110); Magnesium 2.2 mg/dL (1.6-2.3); Potassium 4.2 mmol/L (3.4-5.0); Sodium 140 mmol/L (137-145)
--- NOTE | 2023-10-23 08:33 | P.PNIM_ITS ---
Progress Note: A&P Assessment and Plan (1) Acute on chronic hypoxic respiratory failure: Code(s): J96.21 - Acute and chronic respiratory failure with hypoxia Status: Acute Assessment and Plan: 10/23/2023: * Likely secondary to acute on chronic diastolic congestive heart failure versus COPD exacerbation versus pneumonia * Chest x-ray showing opacity in left lung base, small left pleural effusion, small hiatal hernia * Continue DuoNeb * Decrease Solu-Medrol to 40 mg Q 8 hour * Continue azithromycin and Rocephin * On 2 L nasal cannula at rest, patient uses 2 L nasal cannula as needed with activity at home only * Sputum culture ordered * Continue guaifenesin (2) Pneumonia: Code(s): J18.9 - Pneumonia, unspecified organism Status: Acute Assessment and Plan: 10/23/2023: * Chest x-ray showing opacity in left lung base * Patient was started azithromycin and Rocephin in the ED * We will continue with azithromycin and Rocephin, may transition to oral tomorrow * Blood cultures were obtained and pending * See above plan (3) Diastolic congestive heart failure: Code(s): I50.30 - Unspecified diastolic (congestive) heart failure Status: Chronic Assessment and Plan: 10/23/23: * ProBNP 9680 * Patient 40 mg Lasix x2 while in the ED * Will continue Lasix, Coreg, and Jardiance (4) COPD exacerbation: Code(s): J44.1 - Chronic obstructive pulmonary disease with (acute) exacerbation Status: Chronic Assessment and Plan: 10/23/23: * Of note, see above plan care (5) Chronic interstitial lung disease: Code(s): J84.9 - Interstitial pulmonary disease, unspecified Status: Chronic Assessment and Plan: 10/23/23: * Of note, see above plan of care (6) Chronic anticoagulation: Code(s): 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 for AFib (7) Hypertension: Code(s): I10 - Essential (primary) hypertension Status: Chronic Assessment and Plan: 10/23/23: * Blood pressures ranging 140/67 to 171/66 * Currently on metoprolol and lasix * Will order hydralazine 10 mg IV q.8 hours as needed for for systolic greater than 160 * Will start losartan 12.5 BID for better blood pressure control and continued support for kidney function. He need dose adjustment as needed. Monitor potassium level (8) Hyperlipidemia: Code(s): E78.5 - Hyperlipidemia, unspecified Status: Chronic Assessment and Plan: 10/23/23: * Continue rosuvastatin 20 mg p.o. daily (9) Paroxysmal atrial fibrillation: Code(s): I48.0 - Paroxysmal atrial fibrillation Status: Chronic Assessment and Plan: 10/23/23: * Continue Eliquis 2.5 q.12 and metoprolol mg q.12 (10) Gastroesophageal reflux disease: Code(s): K21.9 - Gastro-esophageal reflux disease without esophagitis Status: Acute Assessment and Plan: 10/23/2023: * Start Protonix 40 mg daily Time Spent With Patient Time with patient: Greater than 35 minutes Subjective Date/time seen: 10/23/23 08:33 Interval history: This is an 83-year-old female who presented to the hospital on 10/22/2023 with shortness of breath. Workup in the hospital included a chest x-ray which showed mild opacity in the lung base with blunting at the posterior soak see consistent with small left pleural effusion, small hiatal hernia. Respiratory panel was obtained and was negative for inf
--- NOTE | 2023-10-23 08:33 | PM.IMPN ---
Progress Note: A&P Assessment and Plan (1) Acute on chronic hypoxic respiratory failure: Code(s): J96.21 - Acute and chronic respiratory failure with hypoxia Status: Acute Assessment and Plan: 10/23/2023: Likely secondary to acute on chronic diastolic congestive heart failure versus COPD exacerbation versus pneumonia Chest x-ray showing opacity in left lung base, small left pleural effusion, small hiatal hernia Continue DuoNeb Decrease Solu-Medrol to 40 mg Q 8 hour Continue azithromycin and Rocephin On 2 L nasal cannula at rest, patient uses 2 L nasal cannula as needed with activity at home only Sputum culture ordered Continue guaifenesin (2) Pneumonia: Code(s): J18.9 - Pneumonia, unspecified organism Status: Acute Assessment and Plan: 10/23/2023: Chest x-ray showing opacity in left lung base Patient was started azithromycin and Rocephin in the ED We will continue with azithromycin and Rocephin, may transition to oral tomorrow Blood cultures were obtained and pending See above plan (3) Diastolic congestive heart failure: Code(s): I50.30 - Unspecified diastolic (congestive) heart failure Status: Chronic Assessment and Plan: 10/23/23: ProBNP 9680 Patient 40 mg Lasix x2 while in the ED Will continue Lasix, Coreg, and Jardiance (4) COPD exacerbation: Code(s): J44.1 - Chronic obstructive pulmonary disease with (acute) exacerbation Status: Chronic Assessment and Plan: 10/23/23: Of note, see above plan care (5) Chronic interstitial lung disease: Code(s): J84.9 - Interstitial pulmonary disease, unspecified Status: Chronic Assessment and Plan: 10/23/23: Of note, see above plan of care (6) Chronic anticoagulation: Code(s): 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 for AFib (7) Hypertension: Code(s): I10 - Essential (primary) hypertension Status: Chronic Assessment and Plan: 10/23/23: Blood pressures ranging 140/67 to 171/66 Currently on metoprolol and lasix Will order hydralazine 10 mg IV q.8 hours as needed for for systolic greater than 160 Will start losartan 12.5 BID for better blood pressure control and continued support for kidney function. He need dose adjustment as needed. Monitor potassium level (8) Hyperlipidemia: Code(s): E78.5 - Hyperlipidemia, unspecified Status: Chronic Assessment and Plan: 10/23/23: Continue rosuvastatin 20 mg p.o. daily (9) Paroxysmal atrial fibrillation: Code(s): I48.0 - Paroxysmal atrial fibrillation Status: Chronic Assessment and Plan: 10/23/23: Continue Eliquis 2.5 q.12 and metoprolol mg q.12 (10) Gastroesophageal reflux disease: Code(s): K21.9 - Gastro-esophageal reflux disease without esophagitis Status: Acute Assessment and Plan: 10/23/2023: Start Protonix 40 mg daily Time Spent With Patient Time with patient: Greater than 35 minutes Subjective Date/time seen: 10/23/23 08:33 Interval history: This is an 83-year-old female who presented to the hospital on 10/22/2023 with shortness of breath. Workup in the hospital included a chest x-ray which showed mild opacity in the lung base with blunting at the posterior soak see consistent with small left pleural effusion, small hiatal hernia. Respiratory panel was obtained and was negative for influenza a and B, RSV, COVID. Patient was given 2 doses of 40 mg IV Lasix, albuterol neb treatment, and started on Rocephin and azithromycin in the ED. Patient states she is feeling much better today. She denies any fever, chills, nausea, vomiting, diarrhea, abdominal pain, or chest pain. She does have shortness of breath with activity. She does wear 2 L nasal cannula at home as needed with activity. He is currently on 2 L nasal cannula at rest.
[2023-10-23] MEDS: METOPROLOL TARTRATE 25 MG TABLET PO ×2 (09:26→20:35)
[2023-10-23] MEDS: ROSUVASTATIN 10 MG TABLET 20 MG PO (09:26)
[2023-10-23] MEDS: FUROSEMIDE 20 MG TABLET PO (09:26)
[2023-10-23] MEDS: AZITHROMYCIN 250 MG TABLET 500 MG PO (09:26)
[2023-10-23] MEDS: guaiFENesin 12 HR 600 MG TABCR PO ×2 (09:26→20:35)
[2023-10-23] MEDS: EMPAGLIFLOZIN 10 MG TABLET PO (09:26)
[2023-10-23] MEDS: APIXABAN 2.5 MG TABLET PO ×2 (09:26→20:35)
[2023-10-23] MEDS: LOSARTAN POTASSIUM 12.5 MG TABLET PO (17:57)
[2023-10-23] MEDS: methylPREDNISolone SOD SUCC 125 MG VIAL 40 MG IV PUSH ×2 (17:57→23:47)
[2023-10-23] MEDS: cloNIDine HCL 0.1 MG TABLET PO (20:35)
[2023-10-23] MEDS: ACETAMINOPHEN 325 MG TABLET 650 MG PO (20:35)
[2023-10-24] VITALS (14 sets, daily range): BP systolic 125–135; BP diastolic 62–72; PULSE 70–76; RESP 17–18; TEMP 36.3–36.4; O2SAT 94–97
[2023-10-24] MEDS: ACETAMINOPHEN 325 MG TABLET 650 MG PO (02:53)
[2023-10-24 06:33] LABS: Hematocrit 32.7 % (37.0-47.0); Immature Granulocyte Absolute 0.03 K/mm3 (0.00-0.031); Immature Granulocyte Percent A 0.3 % (0-0.5); Immature Platelet Fraction Pct 8.4 % (0.9-11.2); Lymphocytes Absolute Auto 0.53 K/mm3 (0.9-3.2); Mean Corpuscular HGB Conc 30.6 g/dl (32-36); Mean Corpuscular Hemoglobin 29.7 pg (26-34); Mean Platelet Volume 13.1 fl (7.4-10.4); Monocytes Absolute Auto 0.2 K/mm3 (0.1-0.6); Monocytes Percent Auto 2.5 % (2.6-8.5); Neutrophils Absolute Auto 8.1 K/mm3 (1.3-6.7); Neutrophils Percent Auto 91.2 % (45.5-73.1); Platelet Count Result 156 k/mm3 (150-375); Red Blood Count 3.37 M/mm3 (4.2-5.4); Red Cell Distribution Width 14.6 % (11.5-14.5); White Blood Count 8.8 K/mm3 (4.5-10.0)
[2023-10-24 06:52] LABS: Alanine Aminotransferase 13 U/L (6-35); Albumin Level 3.4 g/dL (3.5-5.1); Alkaline Phosphatase 64 U/L (38-126); Anion Gap 2 mmol/L (4-12); Aspartate Amino Transferase 29 U/L (14-36); Bilirubin,Total 0.4 mg/dL (0.2-1.3); Blood Urea Nitrogen 45 mg/dL (7-17); Calcium 9.3 mg/dL (8.4-10.2); Carbon Dioxide 37 mmol/L (22-30); Chloride 96 mmol/L (98-107); Estimated CRCL calculation 23 ml/min; Estimated Glomerular Filt Rate 29; Glucose 162 mg/dL (65-110); Magnesium 2.4 mg/dL (1.6-2.3); Potassium 4.4 mmol/L (3.4-5.0); Sodium 135 mmol/L (137-145)
[2023-10-24] MEDS: IPRATROPIUM 0.5 MG/ALBUTEROL SULFATE 2.5 MG AMPUL.NEB 3 ML 2.5 ML INHALATION ×3 (07:28→21:04)
--- NOTE | 2023-10-24 08:12 | P.PNIM_ITS ---
Progress Note: A&P Assessment and Plan (1) COPD exacerbation: Code(s): J44.1 - Chronic obstructive pulmonary disease with (acute) exacerbation Status: Chronic (2) Acute on chronic hypoxic respiratory failure: Code(s): J96.21 - Acute and chronic respiratory failure with hypoxia Status: Acute (3) Coronary artery disease: Code(s): I25.10 - Atherosclerotic heart disease of [place] coronary artery without angina pectoris Status: Acute (4) Chronic interstitial lung disease: Code(s): J84.9 - Interstitial pulmonary disease, unspecified Status: Chronic (5) Gastroesophageal reflux disease: Code(s): K21.9 - Gastro-esophageal reflux disease without esophagitis Status: Acute (6) Diastolic congestive heart failure: Code(s): I50.30 - Unspecified diastolic (congestive) heart failure Status: Chronic (7) ILD (interstitial lung disease): Code(s): J84.9 - Interstitial pulmonary disease, unspecified Status: Acute Plan (1) Acute on chronic hypoxic respiratory failure: ?Code(s): J96.21 - Acute and chronic respiratory failure with hypoxia ?Status:?Acute ?Assessment and Plan: 10/23/2023: * COPD exacerbation versus pneumonia possible fluid overload * Chest x-ray showing opacity in left lung base, small left pleural effusion, small hiatal hernia * Continue DuoNeb * Decrease Solu-Medrol to 40 mg Q 8 hour * Continue azithromycin and Rocephin * On 2 L nasal cannula at rest, patient uses 2 L nasal cannula as needed with activity at home only * Sputum culture ordered * Continue guaifenesin * (2) Pneumonia: ?Code(s): J18.9 - Pneumonia, unspecified organism ?Status:?Acute ?Assessment and Plan: 10/23/2023: * Chest x-ray showing opacity in left lung base * Patient was started azithromycin and Rocephin in the ED * We will continue with azithromycin and Rocephin, may transition to oral tomorrow * Blood cultures were obtained and pending * See above plan (3) Diastolic congestive heart failure: ?Code(s): I50.30 - Unspecified diastolic (congestive) heart failure ?Status:?Chronic ?Assessment and Plan: 10/23/23: * ProBNP 9680 * Patient 40 mg Lasix x2 while in the ED * overload improves, continue Lasix 20 mg daily po, Coreg, and Jardiance (4) COPD exacerbation: ?Code(s): J44.1 - Chronic obstructive pulmonary disease with (acute) exacerbation ?Status:?Chronic ?Assessment and Plan: 10/23/23: * Of note, see above plan care (5) Chronic interstitial lung disease: ?Code(s): J84.9 - Interstitial pulmonary disease, unspecified ?Status:?Chronic ?Assessment and Plan: 10/23/23: * Of note, see above plan of care (6) Chronic anticoagulation: ?Code(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 for AFib (7) Hypertension: ?Code(s): I10 - Essential (primary) hypertension ?Status:?Chronic ?Assessment and Plan: 10/23/23: * Blood pressures ranging 140/67 to 171/66 * Currently on metoprolol and lasix * Will order hydralazine 10 mg IV q.8 hours as needed for for systolic greater than 160 * Will start losartan 12.5 BID for better blood pressure control and continued support for kidney function.? He need dose adjustment as needed. Monitor potassium level (8) Hyperlipidemia: ?Code(s): E78.5 - Hyperlipidemia, unspec
--- NOTE | 2023-10-24 08:12 | PM.IMPN ---
Progress Note: A&P Assessment and Plan (1) COPD exacerbation: Code(s): J44.1 - Chronic obstructive pulmonary disease with (acute) exacerbation Status: Chronic (2) Acute on chronic hypoxic respiratory failure: Code(s): J96.21 - Acute and chronic respiratory failure with hypoxia Status: Acute (3) Coronary artery disease: Code(s): I25.10 - Atherosclerotic heart disease of [place] coronary artery without angina pectoris Status: Acute (4) Chronic interstitial lung disease: Code(s): J84.9 - Interstitial pulmonary disease, unspecified Status: Chronic (5) Gastroesophageal reflux disease: Code(s): K21.9 - Gastro-esophageal reflux disease without esophagitis Status: Acute (6) Diastolic congestive heart failure: Code(s): I50.30 - Unspecified diastolic (congestive) heart failure Status: Chronic (7) ILD (interstitial lung disease): Code(s): J84.9 - Interstitial pulmonary disease, unspecified Status: Acute Plan (1) Acute on chronic hypoxic respiratory failure: ?Code(s): J96.21 - Acute and chronic respiratory failure with hypoxia ?Status:?Acute ?Assessment and Plan: 10/23/2023: COPD exacerbation versus pneumonia possible fluid overload Chest x-ray showing opacity in left lung base, small left pleural effusion, small hiatal hernia Continue DuoNeb Decrease Solu-Medrol to 40 mg Q 8 hour Continue azithromycin and Rocephin On 2 L nasal cannula at rest, patient uses 2 L nasal cannula as needed with activity at home only Sputum culture ordered Continue guaifenesin (2) Pneumonia: ?Code(s): J18.9 - Pneumonia, unspecified organism ?Status:?Acute ?Assessment and Plan: 10/23/2023: Chest x-ray showing opacity in left lung base Patient was started azithromycin and Rocephin in the ED We will continue with azithromycin and Rocephin, may transition to oral tomorrow Blood cultures were obtained and pending See above plan (3) Diastolic congestive heart failure: ?Code(s): I50.30 - Unspecified diastolic (congestive) heart failure ?Status:?Chronic ?Assessment and Plan: 10/23/23: ProBNP 9680 Patient 40 mg Lasix x2 while in the ED overload improves, continue Lasix 20 mg daily po, Coreg, and Jardiance (4) COPD exacerbation: ?Code(s): J44.1 - Chronic obstructive pulmonary disease with (acute) exacerbation ?Status:?Chronic ?Assessment and Plan: 10/23/23: Of note, see above plan care (5) Chronic interstitial lung disease: ?Code(s): J84.9 - Interstitial pulmonary disease, unspecified ?Status:?Chronic ?Assessment and Plan: 10/23/23: Of note, see above plan of care (6) Chronic anticoagulation: ?Code(s): 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 for AFib (7) Hypertension: ?Code(s): I10 - Essential (primary) hypertension ?Status:?Chronic ?Assessment and Plan: 10/23/23: Blood pressures ranging 140/67 to 171/66 Currently on metoprolol and lasix Will order hydralazine 10 mg IV q.8 hours as needed for for systolic greater than 160 Will start losartan 12.5 BID for better blood pressure control and continued support for kidney function.? He need dose adjustment as needed. Monitor potassium level (8) Hyperlipidemia: ?Code(s): E78.5 - Hyperlipidemia, unspecified ?Status:?Chronic ?Assessment and Plan: 10/23/23: Continue rosuvastatin 20 mg p.o. daily (9) Paroxysmal atrial fibrillation: ?Code(s): I48.0 - Paroxysmal atrial fibrillation ?Status:?Chronic ?Assessment and Plan: 10/23/23: Continue Eliquis 2.5 q.12 and metoprolol mg q.12(10) Gastroesophageal reflux disease: ?Code(s): K21.9 - Gastro-esophageal reflux disease without esophagitis ?Status:?Acute ?Assessment and Plan: 10/23/2023: Start Proton
[2023-10-24] MEDS: LOSARTAN POTASSIUM 12.5 MG TABLET PO ×2 (09:06→17:23)
[2023-10-24] MEDS: EMPAGLIFLOZIN 10 MG TABLET PO (09:07)
[2023-10-24] MEDS: FUROSEMIDE 20 MG TABLET PO (09:07)
[2023-10-24] MEDS: APIXABAN 2.5 MG TABLET PO ×2 (09:07→21:21)
[2023-10-24] MEDS: ROSUVASTATIN 10 MG TABLET 20 MG PO (09:08)
[2023-10-24] MEDS: METOPROLOL TARTRATE 25 MG TABLET PO ×2 (09:08→21:21)
[2023-10-24] MEDS: guaiFENesin 12 HR 600 MG TABCR PO ×2 (09:08→21:21)
[2023-10-24] MEDS: AZITHROMYCIN 250 MG TABLET 500 MG PO (09:09)
[2023-10-24] MEDS: PANTOPRAZOLE 40 MG TABLET PO (09:09)
[2023-10-24] MEDS: methylPREDNISolone SOD SUCC 125 MG VIAL 40 MG IV PUSH ×2 (10:25→17:23)
--- NOTE | 2023-10-24 14:05 | PC.NURSE ---
On 10/24/23, the student, [Ivan Ceja], provided care and completed [facility] documentation on this patient. I have reviewed the student's documentation and agree with the findings.
[2023-10-24] MEDS: cloNIDine HCL 0.1 MG TABLET PO (21:21)
[2023-10-25] VITALS (15 sets, daily range): BP systolic 105–136; BP diastolic 50–71; PULSE 71–112; RESP 16–20; TEMP 36.2–36.4; O2SAT 94–98
[2023-10-25] MEDS: methylPREDNISolone SOD SUCC 125 MG VIAL 40 MG IV PUSH ×3 (00:13→17:05)
[2023-10-25] MEDS: ACETAMINOPHEN 325 MG TABLET 650 MG PO (00:17)
[2023-10-25] MEDS: IPRATROPIUM 0.5 MG/ALBUTEROL SULFATE 2.5 MG AMPUL.NEB 3 ML 2.5 ML INHALATION ×4 (02:41→21:20)
[2023-10-25 05:46] LABS: Basophils Percent Auto 0.1 % (0.2-1.2); Eosinophils Percent Auto 0.1 % (0-4.4); Hematocrit 33.6 % (37.0-47.0); Hemoglobin 10.3 g/dL (12.0-15.0); Immature Granulocyte Absolute 0.04 K/mm3 (0.00-0.031); Immature Granulocyte Percent A 0.4 % (0-0.5); Immature Platelet Fraction Pct 8.3 % (0.9-11.2); Lymphocytes Percent Auto 5.3 % (18.3-44.2); Mean Corpuscular HGB Conc 30.7 g/dl (32-36); Mean Corpuscular Hemoglobin 29.7 pg (26-34); Mean Corpuscular Volume 96.8 fl (80-100); Mean Platelet Volume 13.7 fl (7.4-10.4); Monocytes Absolute Auto 0.2 K/mm3 (0.1-0.6); Monocytes Percent Auto 2.3 % (2.6-8.5); Neutrophils Absolute Auto 8.7 K/mm3 (1.3-6.7); Neutrophils Percent Auto 91.8 % (45.5-73.1); Platelet Count Result 158 k/mm3 (150-375); Red Blood Count 3.47 M/mm3 (4.2-5.4); Red Cell Distribution Width 14.8 % (11.5-14.5); White Blood Count 9.5 K/mm3 (4.5-10.0)
[2023-10-25 05:48] LABS: Alanine Aminotransferase 15 U/L (6-35); Albumin Level 3.3 g/dL (3.5-5.1); Alkaline Phosphatase 62 U/L (38-126); Anion Gap 0 mmol/L (4-12); Aspartate Amino Transferase 32 U/L (14-36); Bilirubin,Total 0.4 mg/dL (0.2-1.3); Blood Urea Nitrogen 57 mg/dL (7-17); Calcium 8.8 mg/dL (8.4-10.2); Carbon Dioxide 38 mmol/L (22-30); Chloride 96 mmol/L (98-107); Estimated CRCL calculation 19 ml/min; Estimated Glomerular Filt Rate 22; Glucose 151 mg/dL (65-110); Potassium 4.5 mmol/L (3.4-5.0); Sodium 134 mmol/L (137-145)
[2023-10-25] MEDS: LOSARTAN POTASSIUM 12.5 MG TABLET PO (09:35)
[2023-10-25] MEDS: ROSUVASTATIN 10 MG TABLET 20 MG PO (09:36)
[2023-10-25] MEDS: APIXABAN 2.5 MG TABLET PO ×2 (09:36→20:54)
[2023-10-25] MEDS: METOPROLOL TARTRATE 25 MG TABLET PO ×2 (09:36→20:54)
[2023-10-25] MEDS: EMPAGLIFLOZIN 10 MG TABLET PO (09:36)
[2023-10-25] MEDS: FUROSEMIDE 20 MG TABLET PO (09:36)
[2023-10-25] MEDS: PANTOPRAZOLE 40 MG TABLET PO (09:36)
[2023-10-25] MEDS: AZITHROMYCIN 250 MG TABLET 500 MG PO (09:36)
[2023-10-25] MEDS: guaiFENesin 12 HR 600 MG TABCR PO ×2 (09:36→20:54)
--- NOTE | 2023-10-25 09:46 | P.PNIM_ITS ---
Progress Note: A&P Assessment and Plan (1) COPD exacerbation: Code(s): J44.1 - Chronic obstructive pulmonary disease with (acute) exacerbation Status: Chronic (2) Acute on chronic hypoxic respiratory failure: Code(s): J96.21 - Acute and chronic respiratory failure with hypoxia Status: Acute (3) Coronary artery disease: Code(s): I25.10 - Atherosclerotic heart disease of [place] coronary artery without angina pectoris Status: Acute (4) Chronic interstitial lung disease: Code(s): J84.9 - Interstitial pulmonary disease, unspecified Status: Chronic (5) Gastroesophageal reflux disease: Code(s): K21.9 - Gastro-esophageal reflux disease without esophagitis Status: Acute (6) Diastolic congestive heart failure: Code(s): I50.30 - Unspecified diastolic (congestive) heart failure Status: Chronic (7) ILD (interstitial lung disease): Code(s): J84.9 - Interstitial pulmonary disease, unspecified Status: Acute Plan (1) Acute on chronic hypoxic respiratory failure: ?Code(s): J96.21 - Acute and chronic respiratory failure with hypoxia ?Status:?Acute ?Assessment and Plan: 10/23/2023: * COPD exacerbation versus pneumonia possible fluid overload * Chest x-ray showing opacity in left lung base, small left pleural effusion, small hiatal hernia * Continue DuoNeb * Decrease Solu-Medrol to 40 mg Q 8 hour * Continue azithromycin and Rocephin * On 2 L nasal cannula at rest, patient uses 2 L nasal cannula as needed with activity at home only * Sputum culture ordered * Continue guaifenesin * (2) Pneumonia: ?Code(s): J18.9 - Pneumonia, unspecified organism ?Status:?Acute ?Assessment and Plan: 10/23/2023: * Chest x-ray showing opacity in left lung base * Patient was started azithromycin and Rocephin in the ED * We will continue with azithromycin and Rocephin, may transition to oral tomorrow * Blood cultures were obtained and pending * See above plan (3) Diastolic congestive heart failure: ?Code(s): I50.30 - Unspecified diastolic (congestive) heart failure ?Status:?Chronic ?Assessment and Plan: 10/23/23: * ProBNP 9680 * Patient 40 mg Lasix x2 while in the ED * overload improves, continue Lasix 20 mg daily po, Coreg, and Jardiance Patient is over diuresed, worsening kidney function, hold Lasix (4) COPD exacerbation: ?Code(s): J44.1 - Chronic obstructive pulmonary disease with (acute) exacerbation ?Status:?Chronic ?Assessment and Plan: 10/23/23: * Of note, see above plan care (5) Chronic interstitial lung disease: ?Code(s): J84.9 - Interstitial pulmonary disease, unspecified ?Status:?Chronic ?Assessment and Plan: 10/23/23: * Of note, see above plan of care (6) Chronic anticoagulation: ?Code(s): 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 for AFib (7) Hypertension: ?Code(s): I10 - Essential (primary) hypertension ?Status:?Chronic ?Assessment and Plan: 10/23/23: * Blood pressures ranging 140/67 to 171/66 * Currently on metoprolol and lasix * Will order hydralazine 10 mg IV q.8 hours as needed for for systolic greater than 160 * Will start losartan 12.5 BID for better blood pressure control and continued support for kidney function.? He need dose adjustment as needed. Monitor potassium level (8) Hy
--- NOTE | 2023-10-25 09:46 | PM.IMPN ---
Progress Note: A&P Assessment and Plan (1) COPD exacerbation: Code(s): J44.1 - Chronic obstructive pulmonary disease with (acute) exacerbation Status: Chronic (2) Acute on chronic hypoxic respiratory failure: Code(s): J96.21 - Acute and chronic respiratory failure with hypoxia Status: Acute (3) Coronary artery disease: Code(s): I25.10 - Atherosclerotic heart disease of [place] coronary artery without angina pectoris Status: Acute (4) Chronic interstitial lung disease: Code(s): J84.9 - Interstitial pulmonary disease, unspecified Status: Chronic (5) Gastroesophageal reflux disease: Code(s): K21.9 - Gastro-esophageal reflux disease without esophagitis Status: Acute (6) Diastolic congestive heart failure: Code(s): I50.30 - Unspecified diastolic (congestive) heart failure Status: Chronic (7) ILD (interstitial lung disease): Code(s): J84.9 - Interstitial pulmonary disease, unspecified Status: Acute Plan (1) Acute on chronic hypoxic respiratory failure: ?Code(s): J96.21 - Acute and chronic respiratory failure with hypoxia ?Status:?Acute ?Assessment and Plan: 10/23/2023: COPD exacerbation versus pneumonia possible fluid overload Chest x-ray showing opacity in left lung base, small left pleural effusion, small hiatal hernia Continue DuoNeb Decrease Solu-Medrol to 40 mg Q 8 hour Continue azithromycin and Rocephin On 2 L nasal cannula at rest, patient uses 2 L nasal cannula as needed with activity at home only Sputum culture ordered Continue guaifenesin (2) Pneumonia: ?Code(s): J18.9 - Pneumonia, unspecified organism ?Status:?Acute ?Assessment and Plan: 10/23/2023: Chest x-ray showing opacity in left lung base Patient was started azithromycin and Rocephin in the ED We will continue with azithromycin and Rocephin, may transition to oral tomorrow Blood cultures were obtained and pending See above plan (3) Diastolic congestive heart failure: ?Code(s): I50.30 - Unspecified diastolic (congestive) heart failure ?Status:?Chronic ?Assessment and Plan: 10/23/23: ProBNP 9680 Patient 40 mg Lasix x2 while in the ED overload improves, continue Lasix 20 mg daily po, Coreg, and Jardiance Patient is over diuresed, worsening kidney function, hold Lasix (4) COPD exacerbation: ?Code(s): J44.1 - Chronic obstructive pulmonary disease with (acute) exacerbation ?Status:?Chronic ?Assessment and Plan: 10/23/23: Of note, see above plan care (5) Chronic interstitial lung disease: ?Code(s): J84.9 - Interstitial pulmonary disease, unspecified ?Status:?Chronic ?Assessment and Plan: 10/23/23: Of note, see above plan of care (6) Chronic anticoagulation: ?Code(s): 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 for AFib (7) Hypertension: ?Code(s): I10 - Essential (primary) hypertension ?Status:?Chronic ?Assessment and Plan: 10/23/23: Blood pressures ranging 140/67 to 171/66 Currently on metoprolol and lasix Will order hydralazine 10 mg IV q.8 hours as needed for for systolic greater than 160 Will start losartan 12.5 BID for better blood pressure control and continued support for kidney function.? He need dose adjustment as needed. Monitor potassium level (8) Hyperlipidemia: ?Code(s): E78.5 - Hyperlipidemia, unspecified ?Status:?Chronic ?Assessment and Plan: 10/23/23: Continue rosuvastatin 20 mg p.o. daily (9) Paroxysmal atrial fibrillation: ?Code(s): I48.0 - Paroxysmal atrial fibrillation ?Status:?Chronic ?Assessment and Plan: 10/23/23: Continue Eliquis 2.5 q.12 and metoprolol mg q.12(10) Gastroesophageal reflux disease: ?Code(s): K21.9 - Gastro-esophageal reflux disease without esophagitis ?Stat
[2023-10-25] MEDS: SODIUM CHLORIDE 0.9% IV 1,000 ML 100 ML IV CONT (11:21)
[2023-10-25] MEDS: cloNIDine HCL 0.1 MG TABLET PO (20:54)
[2023-10-26] VITALS (15 sets, daily range): BP systolic 116–148; BP diastolic 63–85; PULSE 76–94; RESP 14–18; TEMP 36.6–37; O2SAT 94–100
[2023-10-26] MEDS: SODIUM CHLORIDE 0.9% IV 1,000 ML 100 ML IV CONT ×3 (00:16→22:03)
[2023-10-26] MEDS: methylPREDNISolone SOD SUCC 125 MG VIAL 40 MG IV PUSH (00:17)
[2023-10-26] MEDS: ACETAMINOPHEN 325 MG TABLET 650 MG PO ×2 (00:17→21:07)
[2023-10-26 05:59] LABS: Hematocrit 33.3 % (37.0-47.0); Immature Granulocyte Absolute 0.03 K/mm3 (0.00-0.031); Immature Granulocyte Percent A 0.5 % (0-0.5); Immature Platelet Fraction Pct 9.3 % (0.9-11.2); Lymphocytes Absolute Auto 0.39 K/mm3 (0.9-3.2); Lymphocytes Percent Auto 6.7 % (18.3-44.2); Mean Corpuscular Hemoglobin 29.2 pg (26-34); Mean Corpuscular Volume 97.4 fl (80-100); Mean Platelet Volume 13.5 fl (7.4-10.4); Monocytes Absolute Auto 0.1 K/mm3 (0.1-0.6); Monocytes Percent Auto 2.2 % (2.6-8.5); Neutrophils Absolute Auto 5.3 K/mm3 (1.3-6.7); Neutrophils Percent Auto 90.6 % (45.5-73.1); Platelet Count Result 141 k/mm3 (150-375); Red Blood Count 3.42 M/mm3 (4.2-5.4); Red Cell Distribution Width 14.7 % (11.5-14.5); White Blood Count 5.8 K/mm3 (4.5-10.0)
[2023-10-26 06:36] LABS: Alanine Aminotransferase 17 U/L (6-35); Alkaline Phosphatase 56 U/L (38-126); Anion Gap 4 mmol/L (4-12); Aspartate Amino Transferase 29 U/L (14-36); Bilirubin,Total 0.3 mg/dL (0.2-1.3); Blood Urea Nitrogen 71 mg/dL (7-17); Calcium 8.3 mg/dL (8.4-10.2); Carbon Dioxide 33 mmol/L (22-30); Chloride 98 mmol/L (98-107); Estimated CRCL calculation 18 ml/min; Estimated Glomerular Filt Rate 21; Glucose 153 mg/dL (65-110); Potassium 4.7 mmol/L (3.4-5.0); Sodium 135 mmol/L (137-145)
--- NOTE | 2023-10-26 06:44 | PCRCNOTE ---
Patient refused 0200 updraft treatment due to wanting sleep. Treatment to resume at 0800.
--- NOTE | 2023-10-26 08:16 | P.PNIM_ITS ---
Progress Note: A&P Assessment and Plan (1) COPD exacerbation: Code(s): J44.1 - Chronic obstructive pulmonary disease with (acute) exacerbation Status: Chronic (2) Acute on chronic hypoxic respiratory failure: Code(s): J96.21 - Acute and chronic respiratory failure with hypoxia Status: Acute (3) Coronary artery disease: Code(s): I25.10 - Atherosclerotic heart disease of [place] coronary artery without angina pectoris Status: Acute (4) Chronic interstitial lung disease: Code(s): J84.9 - Interstitial pulmonary disease, unspecified Status: Chronic (5) Gastroesophageal reflux disease: Code(s): K21.9 - Gastro-esophageal reflux disease without esophagitis Status: Acute (6) Diastolic congestive heart failure: Code(s): I50.30 - Unspecified diastolic (congestive) heart failure Status: Chronic (7) ILD (interstitial lung disease): Code(s): J84.9 - Interstitial pulmonary disease, unspecified Status: Acute Plan Acute on chronic hypoxic respiratory failure: ?Code(s): J96.21 - Acute and chronic respiratory failure with hypoxia ?Status:?Acute ?Assessment and Plan: 10/23/2023: * COPD exacerbation versus pneumonia possible fluid overload * Chest x-ray showing opacity in left lung base, small left pleural effusion, small hiatal hernia * Continue DuoNeb * Continue azithromycin and Rocephin * On 2 L nasal cannula at rest, patient uses 2 L nasal cannula as needed with activity at home only * Sputum culture ordered * Continue guaifenesin Dc Solu-Medrol Pneumonia: ?Code(s): J18.9 - Pneumonia, unspecified organism ?Status:?Acute ?Assessment and Plan: 10/23/2023: * Chest x-ray showing opacity in left lung base * Patient was started azithromycin and Rocephin in the ED * We will continue with azithromycin and Rocephin, may transition to oral tomorrow * Blood cultures were obtained and pending * See above plan Diastolic congestive heart failure: ?Code(s): I50.30 - Unspecified diastolic (congestive) heart failure ?Status:?Chronic ?Assessment and Plan: 10/23/23: * ProBNP 9680 * Patient 40 mg Lasix x2 while in the ED * overload improves, continue Lasix 20 mg daily po, Coreg, and Jardiance Patient is over diuresed, worsening kidney function, hold Lasix LEROY on CKD Worsening kidney function, likely secondary to diuretic medication Blood pressure on the lower side Hold furosemide, hold losartan Started normal saline IV 100 mL/hour 10/24 no improvement of Cr, continue NS ivs today COPD exacerbation: ?Code(s): J44.1 - Chronic obstructive pulmonary disease with (acute) exacerbation ?Status:?Chronic ?Assessment and Plan: 10/23/23: * Of note, see above plan care (5) Chronic interstitial lung disease: ?Code(s): J84.9 - Interstitial pulmonary disease, unspecified ?Status:?Chronic ?Assessment and Plan: 10/23/23: * Of note, see above plan of care Chronic anticoagulation: ?Code(s): 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 for AFib Hypertension: ?Code(s): I10 - Essential (primary) hypertension ?Status:?Chronic ?Assessment and Plan: 10/23/23: * Blood pressures ranging 140/67 to 171/66 * Currently on metoprolol and lasix * Will order hydralazine 10 mg IV q.8 hours as needed for for systolic greater
--- NOTE | 2023-10-26 08:16 | PM.IMPN ---
Progress Note: A&P Assessment and Plan (1) COPD exacerbation: Code(s): J44.1 - Chronic obstructive pulmonary disease with (acute) exacerbation Status: Chronic (2) Acute on chronic hypoxic respiratory failure: Code(s): J96.21 - Acute and chronic respiratory failure with hypoxia Status: Acute (3) Coronary artery disease: Code(s): I25.10 - Atherosclerotic heart disease of [place] coronary artery without angina pectoris Status: Acute (4) Chronic interstitial lung disease: Code(s): J84.9 - Interstitial pulmonary disease, unspecified Status: Chronic (5) Gastroesophageal reflux disease: Code(s): K21.9 - Gastro-esophageal reflux disease without esophagitis Status: Acute (6) Diastolic congestive heart failure: Code(s): I50.30 - Unspecified diastolic (congestive) heart failure Status: Chronic (7) ILD (interstitial lung disease): Code(s): J84.9 - Interstitial pulmonary disease, unspecified Status: Acute Plan Acute on chronic hypoxic respiratory failure: ?Code(s): J96.21 - Acute and chronic respiratory failure with hypoxia ?Status:?Acute ?Assessment and Plan: 10/23/2023: COPD exacerbation versus pneumonia possible fluid overload Chest x-ray showing opacity in left lung base, small left pleural effusion, small hiatal hernia Continue DuoNeb Continue azithromycin and Rocephin On 2 L nasal cannula at rest, patient uses 2 L nasal cannula as needed with activity at home only Sputum culture ordered Continue guaifenesin Dc Solu-Medrol Pneumonia: ?Code(s): J18.9 - Pneumonia, unspecified organism ?Status:?Acute ?Assessment and Plan: 10/23/2023: Chest x-ray showing opacity in left lung base Patient was started azithromycin and Rocephin in the ED We will continue with azithromycin and Rocephin, may transition to oral tomorrow Blood cultures were obtained and pending See above plan Diastolic congestive heart failure: ?Code(s): I50.30 - Unspecified diastolic (congestive) heart failure ?Status:?Chronic ?Assessment and Plan: 10/23/23: ProBNP 9680 Patient 40 mg Lasix x2 while in the ED overload improves, continue Lasix 20 mg daily po, Coreg, and Jardiance Patient is over diuresed, worsening kidney function, hold Lasix LEROY on CKD Worsening kidney function, likely secondary to diuretic medication Blood pressure on the lower side Hold furosemide, hold losartan Started normal saline IV 100 mL/hour 10/24 no improvement of Cr, continue NS ivs today COPD exacerbation: ?Code(s): J44.1 - Chronic obstructive pulmonary disease with (acute) exacerbation ?Status:?Chronic ?Assessment and Plan: 10/23/23: Of note, see above plan care (5) Chronic interstitial lung disease: ?Code(s): J84.9 - Interstitial pulmonary disease, unspecified ?Status:?Chronic ?Assessment and Plan: 10/23/23: Of note, see above plan of care Chronic anticoagulation: ?Code(s): 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 for AFib Hypertension: ?Code(s): I10 - Essential (primary) hypertension ?Status:?Chronic ?Assessment and Plan: 10/23/23: Blood pressures ranging 140/67 to 171/66 Currently on metoprolol and lasix Will order hydralazine 10 mg IV q.8 hours as needed for for systolic greater than 160 Will start losartan 12.5 BID for better blood pressure control and continued support for kidney function.? He need dose adjustment as needed. Monitor potassium level (8) Hyperlipidemia: ?Code(s): E78.5 - Hyperlipidemia, unspecified ?Status:?Chronic ?Assessment and Plan: 10/23/23: Continue rosuvastatin 20 mg p.o. daily (9) Paroxysmal atrial fibrillation: ?Code(s): I48.0 - Paroxysmal atrial fibrillation ?Status:?Chronic ?Assessment and
[2023-10-26] MEDS: IPRATROPIUM 0.5 MG/ALBUTEROL SULFATE 2.5 MG AMPUL.NEB 3 ML 2.5 ML INHALATION ×3 (08:17→20:40)
[2023-10-26] MEDS: EMPAGLIFLOZIN 10 MG TABLET PO (10:29)
[2023-10-26] MEDS: AZITHROMYCIN 250 MG TABLET 500 MG PO (10:29)
[2023-10-26] MEDS: ROSUVASTATIN 10 MG TABLET 20 MG PO (10:29)
[2023-10-26] MEDS: APIXABAN 2.5 MG TABLET PO ×2 (10:30→21:06)
[2023-10-26] MEDS: PANTOPRAZOLE 40 MG TABLET PO (10:30)
[2023-10-26] MEDS: guaiFENesin 12 HR 600 MG TABCR PO ×2 (10:33→21:06)
[2023-10-26] MEDS: METOPROLOL TARTRATE 25 MG TABLET PO ×2 (10:37→21:06)
[2023-10-26] MEDS: cloNIDine HCL 0.1 MG TABLET PO (21:06)
[2023-10-27] VITALS (9 sets, daily range): BP systolic 112–121; BP diastolic 54–61; PULSE 82–98; RESP 16–18; TEMP 36.5; O2SAT 96–100
--- NOTE | 2023-10-27 04:49 | PCRCNOTE ---
Patient did not want to be awakened for 0200 updraft treatment. Treatment to resume at 0800.
[2023-10-27 05:09] LABS: Basophils Percent Auto 0.1 % (0.2-1.2); Hematocrit 34.1 % (37.0-47.0); Hemoglobin 10.2 g/dL (12.0-15.0); Immature Granulocyte Absolute 0.03 K/mm3 (0.00-0.031); Immature Granulocyte Percent A 0.4 % (0-0.5); Lymphocytes Absolute Auto 0.74 K/mm3 (0.9-3.2); Lymphocytes Percent Auto 11.1 % (18.3-44.2); Mean Corpuscular HGB Conc 29.9 g/dl (32-36); Mean Corpuscular Hemoglobin 29.5 pg (26-34); Mean Corpuscular Volume 98.6 fl (80-100); Mean Platelet Volume 12.1 fl (7.4-10.4); Monocytes Absolute Auto 0.9 K/mm3 (0.1-0.6); Monocytes Percent Auto 12.7 % (2.6-8.5); Neutrophils Absolute Auto 5.1 K/mm3 (1.3-6.7); Neutrophils Percent Auto 75.7 % (45.5-73.1); Platelet Count Result 139 k/mm3 (150-375); Red Blood Count 3.46 M/mm3 (4.2-5.4); Red Cell Distribution Width 14.8 % (11.5-14.5); White Blood Count 6.7 K/mm3 (4.5-10.0)
[2023-10-27 05:19] LABS: Alanine Aminotransferase 25 U/L (6-35); Albumin Level 2.9 g/dL (3.5-5.1); Alkaline Phosphatase 50 U/L (38-126); Anion Gap 2 mmol/L (4-12); Aspartate Amino Transferase 39 U/L (14-36); Bilirubin,Total 0.3 mg/dL (0.2-1.3); Blood Urea Nitrogen 73 mg/dL (7-17); Calcium 8.4 mg/dL (8.4-10.2); Carbon Dioxide 32 mmol/L (22-30); Chloride 103 mmol/L (98-107); Estimated CRCL calculation 20 ml/min; Estimated Glomerular Filt Rate 24; Glucose 106 mg/dL (65-110); Potassium 4.8 mmol/L (3.4-5.0); Sodium 137 mmol/L (137-145)
[2023-10-27] MEDS: IPRATROPIUM 0.5 MG/ALBUTEROL SULFATE 2.5 MG AMPUL.NEB 3 ML 2.5 ML INHALATION ×2 (07:37→13:29)
--- NOTE | 2023-10-27 08:43 | P.PNIM_ITS ---
Progress Note: A&P Assessment and Plan (1) COPD exacerbation: Code(s): J44.1 - Chronic obstructive pulmonary disease with (acute) exacerbation Status: Chronic (2) Acute on chronic hypoxic respiratory failure: Code(s): J96.21 - Acute and chronic respiratory failure with hypoxia Status: Acute (3) Coronary artery disease: Code(s): I25.10 - Atherosclerotic heart disease of [place] coronary artery without angina pectoris Status: Acute (4) Chronic interstitial lung disease: Code(s): J84.9 - Interstitial pulmonary disease, unspecified Status: Chronic (5) Gastroesophageal reflux disease: Code(s): K21.9 - Gastro-esophageal reflux disease without esophagitis Status: Acute (6) Diastolic congestive heart failure: Code(s): I50.30 - Unspecified diastolic (congestive) heart failure Status: Chronic (7) ILD (interstitial lung disease): Code(s): J84.9 - Interstitial pulmonary disease, unspecified Status: Acute Plan Acute on chronic hypoxic respiratory failure: ?Code(s): J96.21 - Acute and chronic respiratory failure with hypoxia ?Status:?Acute ?Assessment and Plan: 10/23/2023: * COPD exacerbation versus pneumonia possible fluid overload * Chest x-ray showing opacity in left lung base, small left pleural effusion, small hiatal hernia * Continue DuoNeb * Continue azithromycin and Rocephin * On 2 L nasal cannula at rest, patient uses 2 L nasal cannula as needed with activity at home only * Sputum culture ordered * Continue guaifenesin Dc Solu-Medrol Pneumonia: ?Code(s): J18.9 - Pneumonia, unspecified organism ?Status:?Acute ?Assessment and Plan: 10/23/2023: * Chest x-ray showing opacity in left lung base * Patient was started azithromycin and Rocephin in the ED * We will continue with azithromycin and Rocephin, may transition to oral tomorrow * Blood cultures were obtained and no grows Finish 5 days antibiotics Diastolic congestive heart failure: ?Code(s): I50.30 - Unspecified diastolic (congestive) heart failure ?Status:?Chronic ?Assessment and Plan: 10/23/23: * ProBNP 9680 * Patient 40 mg Lasix x2 while in the ED * overload improves, continue Lasix 20 mg daily po, Coreg, and Jardiance Patient is over diuresed, worsening kidney function, hold Lasix LEROY on CKD Worsening kidney function, likely secondary to diuretic medication Blood pressure on the lower side Hold furosemide, hold losartan Started normal saline IV 100 mL/hour 10/24 Kidney function is improving, discontinue normal saline 10/26 COPD exacerbation: ?Code(s): J44.1 - Chronic obstructive pulmonary disease with (acute) exacerbation ?Status:?Chronic ?Assessment and Plan: 10/23/23: * Of note, see above plan care resovles today (5) Chronic interstitial lung disease: ?Code(s): J84.9 - Interstitial pulmonary disease, unspecified ?Status:?Chronic ?Assessment and Plan: 10/23/23: * Of note, see above plan of care Chronic anticoagulation: ?Code(s): 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 for AFib Hypertension: ?Code(s): I10 - Essential (primary) hypertension ?Status:?Chronic ?Assessment and Plan: 10/23/23: * Blood pressures ranging 140/67 to 171/66 * Currently on metoprolol and lasix * Will order hydralazine 10 m
--- NOTE | 2023-10-27 08:43 | PM.IMPN ---
Progress Note: A&P Assessment and Plan (1) COPD exacerbation: Code(s): J44.1 - Chronic obstructive pulmonary disease with (acute) exacerbation Status: Chronic (2) Acute on chronic hypoxic respiratory failure: Code(s): J96.21 - Acute and chronic respiratory failure with hypoxia Status: Acute (3) Coronary artery disease: Code(s): I25.10 - Atherosclerotic heart disease of [place] coronary artery without angina pectoris Status: Acute (4) Chronic interstitial lung disease: Code(s): J84.9 - Interstitial pulmonary disease, unspecified Status: Chronic (5) Gastroesophageal reflux disease: Code(s): K21.9 - Gastro-esophageal reflux disease without esophagitis Status: Acute (6) Diastolic congestive heart failure: Code(s): I50.30 - Unspecified diastolic (congestive) heart failure Status: Chronic (7) ILD (interstitial lung disease): Code(s): J84.9 - Interstitial pulmonary disease, unspecified Status: Acute Plan Acute on chronic hypoxic respiratory failure: ?Code(s): J96.21 - Acute and chronic respiratory failure with hypoxia ?Status:?Acute ?Assessment and Plan: 10/23/2023: COPD exacerbation versus pneumonia possible fluid overload Chest x-ray showing opacity in left lung base, small left pleural effusion, small hiatal hernia Continue DuoNeb Continue azithromycin and Rocephin On 2 L nasal cannula at rest, patient uses 2 L nasal cannula as needed with activity at home only Sputum culture ordered Continue guaifenesin Dc Solu-Medrol Pneumonia: ?Code(s): J18.9 - Pneumonia, unspecified organism ?Status:?Acute ?Assessment and Plan: 10/23/2023: Chest x-ray showing opacity in left lung base Patient was started azithromycin and Rocephin in the ED We will continue with azithromycin and Rocephin, may transition to oral tomorrow Blood cultures were obtained and no grows Finish 5 days antibiotics Diastolic congestive heart failure: ?Code(s): I50.30 - Unspecified diastolic (congestive) heart failure ?Status:?Chronic ?Assessment and Plan: 10/23/23: ProBNP 9680 Patient 40 mg Lasix x2 while in the ED overload improves, continue Lasix 20 mg daily po, Coreg, and Jardiance Patient is over diuresed, worsening kidney function, hold Lasix LEROY on CKD Worsening kidney function, likely secondary to diuretic medication Blood pressure on the lower side Hold furosemide, hold losartan Started normal saline IV 100 mL/hour 10/24 Kidney function is improving, discontinue normal saline 10/26 COPD exacerbation: ?Code(s): J44.1 - Chronic obstructive pulmonary disease with (acute) exacerbation ?Status:?Chronic ?Assessment and Plan: 10/23/23: Of note, see above plan care resovles today (5) Chronic interstitial lung disease: ?Code(s): J84.9 - Interstitial pulmonary disease, unspecified ?Status:?Chronic ?Assessment and Plan: 10/23/23: Of note, see above plan of care Chronic anticoagulation: ?Code(s): 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 for AFib Hypertension: ?Code(s): I10 - Essential (primary) hypertension ?Status:?Chronic ?Assessment and Plan: 10/23/23: Blood pressures ranging 140/67 to 171/66 Currently on metoprolol and lasix Will order hydralazine 10 mg IV q.8 hours as needed for for systolic greater than 160 Will start losartan 12.5 BID for better blood pressure control and continued support for kidney function.? He need dose adjustment as needed. Monitor potassium level 10/26 hold lorstan BP on the lower side, c/w home meds on dc (8) Hyperlipidemia: ?Code(s): E78.5 - Hyperlipidemia, unspecified ?Status:?Chronic ?Assessment and Plan: 10/23/23: Continue rosuvastatin 20 mg p.o. daily (9) Paroxysmal atrial fibrill
--- NOTE | 2023-10-27 08:49 | PM.DS ---
DS: Admitting Diagnosis Discharge Date 10/27/23 Admitting Diagnosis (1) COPD exacerbation: ?Code(s): J44.1 - Chronic obstructive pulmonary disease with (acute) exacerbation ?Status:?Chronic (2) Acute on chronic hypoxic respiratory failure: ?Code(s): J96.21 - Acute and chronic respiratory failure with hypoxia ?Status:?Acute (3) Coronary artery disease: ?Code(s): I25.10 - Atherosclerotic heart disease of [place] coronary artery without angina pectoris ?Status:?Acute (4) Chronic interstitial lung disease: ?Code(s): J84.9 - Interstitial pulmonary disease, unspecified ?Status:?Chronic (5) Gastroesophageal reflux disease: ?Code(s): K21.9 - Gastro-esophageal reflux disease without esophagitis ?Status:?Acute (6) Diastolic congestive heart failure: ?Code(s): I50.30 - Unspecified diastolic (congestive) heart failure ?Status:?Chronic (7) ILD (interstitial lung disease): ?Code(s): J84.9 - Interstitial pulmonary disease, unspecified ?Status:?Acute DS: Discharge Diagnosis Discharge Diagnosis (1) COPD exacerbation: Code(s): J44.1 - Chronic obstructive pulmonary disease with (acute) exacerbation Status: Chronic (2) Acute on chronic hypoxic respiratory failure: Code(s): J96.21 - Acute and chronic respiratory failure with hypoxia Status: Acute (3) Coronary artery disease: Code(s): I25.10 - Atherosclerotic heart disease of [place] coronary artery without angina pectoris Status: Acute (4) Chronic interstitial lung disease: Code(s): J84.9 - Interstitial pulmonary disease, unspecified Status: Chronic (5) Gastroesophageal reflux disease: Code(s): K21.9 - Gastro-esophageal reflux disease without esophagitis Status: Acute (6) Diastolic congestive heart failure: Code(s): I50.30 - Unspecified diastolic (congestive) heart failure Status: Chronic (7) ILD (interstitial lung disease): Code(s): J84.9 - Interstitial pulmonary disease, unspecified Status: Acute DS: Summary Hospital Course Hospital Course: Per H&P, This is a very pleasant 83-year-old female with chronic obstructive pulmonary disease, chronic hypoxic respiratory failure on home oxygen, diastolic dysfunction, hypertension, hyperlipidemia, pulmonary embolism, chronic kidney disease, and other comorbidities who presented to the emergency department via private vehicle for evaluation of shortness of breath. The patient provides the following history. Over the past week or so she has developed a cough productive of cream-colored sputum in addition to wheezing and increasing dyspnea on lesser and lesser exertion. She has been using her nebulizers at home but that provides her with only a small amount of relief. She has chronic lower extremity edema and orthopnea which is relatively unchanged. She denies fever, chills, sweats, chest and pleuritic pain, palpitations, nausea, vomiting, diarrhea, and calf pain. In the ED: She was afebrile on arrival with with blood pressures in the 160s to 180s systolic. She arrived without her oxygen on and her SpO2 was 89% on room air. CMP and CBC are stable compared to prior labs. She tested negative for influenza, RSV, and COVID. Chest x-ray showed findings of small left-sided effusion with associated atelectasis and/or pneumonia. She was given a nebulizer treatment, Solu-Medrol, and a dose of azithromycin and ceftriaxone and she is being admitted in this setting for further treatment. The following med issues have been addressed during hospitalization Acute on chronic hypoxic respiratory failure: ?Code(s): J96.21 - Acute and chronic respiratory failure with hypoxia ?Status:?Acute ?Assessment and Plan: 10/23/2023: COPD exacerbation versus pneumonia possible fluid overload Chest x-ray showing opacity in left lung base, small left pleural effusion, small hiatal hernia Lillie Roberts
[2023-10-27] MEDS: AZITHROMYCIN 250 MG TABLET 500 MG PO (09:11)
[2023-10-27] MEDS: SODIUM CHLORIDE 0.9% IV 1,000 ML 100 ML IV CONT (09:12)
[2023-10-27] MEDS: ROSUVASTATIN 10 MG TABLET 20 MG PO (09:12)
[2023-10-27] MEDS: PANTOPRAZOLE 40 MG TABLET PO (09:12)
[2023-10-27] MEDS: METOPROLOL TARTRATE 25 MG TABLET PO (09:12)
[2023-10-27] MEDS: APIXABAN 2.5 MG TABLET PO (09:12)
[2023-10-27] MEDS: EMPAGLIFLOZIN 10 MG TABLET PO (09:12)
[2023-10-27] MEDS: guaiFENesin 12 HR 600 MG TABCR PO (09:12)
== END 2023-10-27 15:35 | disposition home health service (06) | DRG 193 ==
LOC: ANHED 15:55 → ANH3MEDSUR 16:49 → ANH2MED 17:19
PROVIDERS: Nurse Practitioner Acute Care; Physician Assistant; Admitting Provider Family Medicine; Emergency Provider Emergency Medicine; PCP Physician Assistant; Visit Provider Hospitalist
DX: J18.9 Pneumonia, unspecified organism (principal); I50.33 Acute on chronic diastolic (congestive) heart failure; J96.21 Acute and chronic respiratory failure with hypoxia; J44.0 Chronic obstructive pulmonary disease with (acute) lower respiratory infection; J44.1 Chronic obstructive pulmonary disease with (acute) exacerbation; N17.9 Acute kidney failure, unspecified; I13.0 Hypertensive heart and chronic kidney disease with heart failure and stage 1 through stage 4 chronic kidney disease, or unspecified chronic kidney disease; N18.9 Chronic kidney disease, unspecified; I48.0 Paroxysmal atrial fibrillation; I25.10 Atherosclerotic heart disease of native coronary artery without angina pectoris; E78.5 Hyperlipidemia, unspecified; K21.9 Gastro-esophageal reflux disease without esophagitis; M19.90 Unspecified osteoarthritis, unspecified site; G47.30 Sleep apnea, unspecified; F41.9 Anxiety disorder, unspecified; F32.A Depression, unspecified; Z20.822 Contact with and (suspected) exposure to COVID-19; Z96.651 Presence of right artificial knee joint; Z99.81 Dependence on supplemental oxygen; Z79.01 Long term (current) use of anticoagulants; Z86.73 Personal history of transient ischemic attack (TIA), and cerebral infarction without residual deficits; Z86.711 Personal history of pulmonary embolism; Z86.718 Personal history of other venous thrombosis and embolism; Z87.442 Personal history of urinary calculi; Z87.891 Personal history of nicotine dependence
CPT/HCPCS: 36415; 71046; 80048; 80053; 83735; 83880; 84132; 85025; 85027; 85055; 85610; 85730; 87040; 87637; 93005; 94640; 96365; 96375; 96376; 97110; 97116; 97161; 97165; 99285; A9270; G0378; J0456; J0696; J1940; J2930; J7030

== ENCOUNTER 2023-11-15 18:23 | Inpatient (IN) | payer MEDICARE, MEDICAID, SELFPAY ==
[2023-11-15] VITALS (12 sets, daily range): BP systolic 123–161; BP diastolic 69–89; PULSE 102–139; RESP 18–24; TEMP 36.5–37; O2SAT 93–100; BMI 37.3
--- NOTE | ~2023-11-15 | US_ITS ---
EXAMINATION: US venous doppler LE RT DATE: 11/18/2023 10:25 INDICATION: Right lower limb pain TECHNIQUE: Grayscale ultrasound images without and with compression and Doppler ultrasound images of the right lower extremity veins were obtained. COMPARISON: 10/11/2021 FINDINGS: The mid right femoral vein is partially compressible with persistent small amount of likely chronic p eripheral nonocclusive thrombus. There is additional noncompressible thrombus in one of the paired ri ght posterior tibial veins which appears new since the prior study. The second right posterior tibial vein remains patent and compressible. The visualized portions of right common femoral vein, profunda (deep) femoral vein, popliteal vein, peroneal veins, gastrocnemius vein and greater saphenous vein o utflow are patent. IMPRESSION: 1. New occlusive appearing deep venous thrombosis in one of the paired right posterior tibial veins of the calf. Findings were discussed with Juliette Clemente, the nurse caring for the patient, at 10:30 AM. 2. Persistent chronic nonocclusive deep venous thrombosis in the mid right femoral vein. Reviewed, dictated and finalized at location A. IMPRESSION: 1. New occlusive appearing deep venous thrombosis in one of the paired right p osterior tibial veins of the calf. Findings were discussed with Juliette Clemente, the nurse caring for the patient, at 10:30 AM. 2. Persistent chronic nonocclusive deep venous thrombosis in the mid right femo ral vein.
--- NOTE | ~2023-11-15 | XR_ITS ---
XR chest 1V portable 11/19/2023 14:06 Indication: Shortness of breath Procedure: AP portable chest Comparison: 11/18/2023 Findings: Small left pleural effusion. Left basilar consolidation may represent atelectasis or pneumo jakob. There is atherosclerosis of the aorta. Calcified granuloma left lung base. Impression: 1: Left basilar consolidation may represent atelectasis and/or pneumonia. 2: Small left pleural effusion. Reviewed, dictated and finalized at location B. Impression: 1: Left basilar consolidation may represent atelectasis and/or pneumonia. 2: Small left pleural effusion.
--- NOTE | ~2023-11-15 | NM_ITS ---
EXAMINATION: NM lung vent and perfusion DATE: 11/19/2023 15:12 INDICATION: Shortness of breath TECHNIQUE: 22.4 mCi xenon-133 by inhalation and 5.5 mCi Tc-99m MAA by intravenous route. Scintigraph ic images of the chest were obtained. COMPARISON: Chest radiograph dated 11/19/2023 and VQ scan dated 06/26/2019 FINDINGS: There is poor signal to normalize on the ventilation sequence but without evident ventilation defects . There are unchanged large perfusion defects involving the anterior basilar and superior segments of the right lower lobe. There is additional moderate sized perfusion defect involving the lateral basi lar segment of the right lower lobe which is new since the prior study. There are no corresponding op acities on the prior radiographs. There are a couple small perfusion defects involving the apical pos terior segment of the left upper lobe. Moderate-sized perfusion defect involving the lateral basilar and anteromedial basilar segments of the left lower lobe which appears similar though the prior study . There are also corresponding opacities on the prior chest radiograph. IMPRESSION: 1. High probability for pulmonary embolism although the majority of the perfusion defects appear unc hanged since the prior study suggesting this may reflect persistent sequela of chronic pulmonary embo lism. Reviewed, dictated and finalized at location A. IMPRESSION: 1. High probability for pulmonary embolism although the majority of the perfus ion defects appear unchanged since the prior study suggesting this may reflect persistent sequela of chronic pulmonary embolism.
--- NOTE | ~2023-11-15 | XR_ITS ---
EXAMINATION: XR chest 1V portable DATE: 11/15/2023 19:26 INDICATION: Dyspnea. TECHNIQUE: A single frontal view of the chest was obtained. COMPARISON: Chest 2 views 10/22/2023 FINDINGS: There are airspace opacities at the lung bases. No pleural effusion or pneumothorax. The he art size is normal. IMPRESSION: 1. Worsened airspace opacities at the lung bases, consistent with atelectasis versus pneumonia. Reviewed, dictated and finalized at location E. IMPRESSION: 1. Worsened airspace opacities at the lung bases, consistent with atelectasis v ersus pneumonia.
--- NOTE | ~2023-11-15 | XR_ITS ---
EXAMINATION: XR chest 1V portable DATE: 11/18/2023 07:00 INDICATION: Shortness of breath. TECHNIQUE: A single frontal view of the chest was obtained. COMPARISON: Chest single view 11/15/2023 FINDINGS: A calcified left lung nodule is consistent with old edematous disease. There are airspace o pacities at left lung base. There are small pleural effusions. No pneumothorax. The heart size is nor mal. IMPRESSION: 1. Stable airspace opacities at left lung base, consistent with atelectasis versus pneumonia. 2. Small pleural effusions. Reviewed, dictated and finalized at location E. IMPRESSION: 1. Stable airspace opacities at left lung base, consistent with atelectasis joseph juan pneumonia. 2. Small pleural effusions.
--- NOTE | 2023-11-15 18:37 | ECG_ITS ---
SEE SCANNED COPY FOR CONFIRMED REPORT MTDD
[2023-11-15 19:05] LABS: Hematocrit 32.6 % (37.0-47.0); Hemoglobin 9.8 g/dL (12.0-15.0); Mean Corpuscular HGB Conc 30.1 g/dl (32-36); Mean Corpuscular Hemoglobin 29.3 pg (26-34); Mean Corpuscular Volume 97.6 fl (80-100); Mean Platelet Volume 12.6 fl (7.4-10.4); Platelet Count Result 80 k/mm3 (150-375); Red Blood Count 3.34 M/mm3 (4.2-5.4); White Blood Count 5.1 K/mm3 (4.5-10.0)
[2023-11-15 19:13] LABS: Alanine Aminotransferase 18 U/L (6-35); Albumin Level 3.9 g/dL (3.5-5.1); Alkaline Phosphatase 84 U/L (38-126); Anion Gap 3 mmol/L (4-12); Aspartate Amino Transferase 43 U/L (14-36); Bilirubin,Total 0.9 mg/dL (0.2-1.3); Blood Urea Nitrogen 33 mg/dL (7-17); Calcium 9.9 mg/dL (8.4-10.2); Carbon Dioxide 34 mmol/L (22-30); Chloride 102 mmol/L (98-107); Estimated CRCL calculation 21 ml/min; Estimated Glomerular Filt Rate 27; Glucose 125 mg/dL (65-110); Potassium 4.2 mmol/L (3.4-5.0); Sodium 139 mmol/L (137-145)
[2023-11-15 19:24] LABS: Magnesium 2.3 mg/dL (1.6-2.3)
[2023-11-15] MEDS: LEVALBUTEROL NEB 1.25 MG/3 ML INHALATION (19:28)
[2023-11-15 19:38] LABS: Alveolar/Arterial O2 Gradient 97.2 mmHg; Base Excess ABG 2.2 mEq/l (+/-2.0); Device NASAL CANNULA; Fractional Inspired Oxygen 32 %; HCO3 ABG 26.7 mEq/l (22.0-26.0); Modified Allen's Test Pass; Oxygen Content ABG 14.6 %vol (16.0-22.0); Oxygen Saturation ABG 96.5 % (95.0-100.0); Oxyhemoglobin 94.6 % THb (90.0-100.0); PCO2 ABG 40.9 mmHg (35.0-45.0); PO2 ABG 83.1 mmHg (80.0-100.0); Site Drawn LEFT RADIAL; Total Hemoglobin 10.9 g/dL (12.0-18.0); pH ABG 7.432 (7.350-7.450)
[2023-11-15 19:41] LABS: NT Pro B Type Natriuretic Pept 19800 pg/mL (19.9-100)
[2023-11-15 19:43] LABS: Band Neutrophils Percent 4 % (0-6); Eosinophils Absolute Manual 0.05 K/mm3 (0.02-0.50); Eosinophils Percent Manual 1 % (0-4); Hyperchromasia 1+; Hypochromasia 2+; Lymphocytes Absolute Manual 0.61 K/mm3 (1.1-4.5); Monocytes Absolute Manual 0.56 K/mm3 (0.1-0.90); Monocytes Percent Manual 11 % (3-9); Neutrophils Absolute Manual 3.87 K/mm3 (1.7-7.2); Neutrophils Percent Manual 72 % (46-73); Platelet Estimate Decreased (Adequate); Schistocytes None Seen; Total Cells Counted 100
[2023-11-15 19:44] LABS: Anisocytosis 2+
--- NOTE | 2023-11-15 20:00 | ED.SOB ---
HPI - SOB/Dyspnea General Chief Complaint: Shortness of Breath/Dyspnea Stated Complaint: short of breath Time Seen by Provider: 11/15/23 18:57 History of Present Illness HPI Narrative: This is an 83-year-old female, with history AFib COPD, CHF, who presents emergency department complaining of shortness of breath for the past several days. The patient states she was recently admitted here with pneumonia. She states she wears 2.5 L of O2 at home. She has had continued cough and dyspnea exertion though denies chest pain. She states he has been compliant with all of her medications and denies any recent changes. She has no other complaints at this time. Related Data Home Medications Medication Instructions Recorded Confirmed rosuvastatin 20 mg tablet 20 mg PO DAILY 06/05/19 10/22/23 albuterol sulfate 90 mcg/actuation 2 inh inhalation QID PRN Shortness 10/22/23 10/22/23 aerosol inhaler Of Breath Or Wheezing clonidine HCl 0.1 mg tablet 0.1 mg PO HS 10/22/23 10/22/23 dapagliflozin propanediol 5 mg 5 mg PO DAILY 10/22/23 10/22/23 tablet (Farxiga) metoprolol tartrate 25 mg tablet 25 mg PO BID 10/22/23 10/22/23 apixaban 2.5 mg tablet (Eliquis) 2.5 mg PO BID 10/23/23 10/23/23 Allergies Allergy/AdvReac Type Severity Reaction Status Date / Time codeine Allergy Unknown Unknown Verified 01/30/22 09:50 Xvxnbqx-AGG-KaP Reductase Allergy Unknown myalgias Verified 01/30/22 09:50 Inhibitor [Ndxkpnx-Xmc-Cbh Reductase Inhibitor] Sulfa (Sulfonamide AdvReac Unknown Dizziness Verified 10/23/23 07:02 Antibiotics) Review of Systems Review of Systems: CONSTITUTIONAL: Denies fever, chills, or sweats. ENT: Denies rhinorrhea, congestion, sore throat, or otalgia. CARDIOVASCULAR: Bilateral lower extremity edema Denies chest pain, palpitations RESPIRATORY: Dyspnea on exertion, dry cough GASTROINTESTINAL: Denies abdominal pain, nausea, vomiting, or diarrhea. GENITOURINARY: Denies dysuria or hematuria. SKIN: Denies rash or itching. MUSCULOSKELETAL: Denies back pain, joint pain, or myalgia. NEUROLOGIC: Denies headache, numbness, dizziness, or weakness. PSYCHIATRIC: Denies anxiety or depression. [facility], [facility] Past Medical History Medical History Anemia Anxiety Arthritis Asthma Cerebrovascular accident Chronic interstitial lung disease Chest CT in October 2020 with appearance of mild chronic interstitial lung disease and mild bronchiectasis. Chronic obstructive pulmonary disease Chronic respiratory failure with hypoxia, on home oxygen therapy Coronary artery disease Deep venous thrombosis Depression Diastolic congestive heart failure Gastroesophageal reflux disease Hyperlipidemia Hypertension Kidney stones Paroxysmal atrial fibrillation Pulmonary embolism Sleep apnea On oxygen, does not use CPAP. Surgical History Surgical History History of appendectomy History of cataract extraction History of hysterectomy History of right knee joint replacement History of tonsillectomy Family History Family History Mother Hypertension Family history of primary malignant neoplasm of liver Carcinoma of colon Sibling Hypertension Asthma Family history of elevated blood lipids Cerebrovascular accident Family history of malignant neoplasm of breast in first degree relative Family history of chronic obstructive pulmonary disease Family history of congestive heart failure Father Family history of coronary artery disease Family history of heart disease in male family member before age 55 Hypertension Acute myocardial infarction Family history of congestive heart failure Other Family history of arthritis Social History Social History Social History: Surrogate medical decision maker: Yessica Gibbs
[2023-11-15] MEDS: FUROSEMIDE INJ 40 MG/4 ML VIAL IV PUSH (20:02)
[2023-11-15] MEDS: METOPROLOL TARTRATE INJ 5 MG/5 ML VIAL IV PUSH (20:13)
[2023-11-15 20:15] LABS: INR 1.4; Prothrombin Time 17.9 Seconds (11.1-14.7)
--- NOTE | 2023-11-15 20:41 | PM.IMHP ---
H&P: HPI History of Present Illness Date/Time: 11/15/23 20:41 Chief Complaint: SOB Narrative: This is an 83-year-old female with past medical history significant for chronic interstitial lung disease, stroke, chronic respiratory failure with hypoxia on supplemental oxygen at home, coronary artery disease, deep vein thrombosis, diastolic heart failure, gastroesophageal reflux disease, paroxysmal atrial fibrillation. Patient recently discharged after being treated for COPD exacerbation, went home is brought today to the emergency room for evaluation with her daughter due to worsening shortness of breath, cough with scanty production of phlegm which is white in color patient has had chills, has pedal edema and ankle edema. Denies any nausea, vomiting or diarrhea. preliminary workup was significant for chest x-ray with lung infiltrates. EXAMINATION: XR chest 1V portable DATE: 11/15/2023 19:26 INDICATION: Dyspnea. TECHNIQUE: A single frontal view of the chest was obtained. COMPARISON: Chest 2 views 10/22/2023 FINDINGS: There are airspace opacities at the lung bases. No pleural effusion or pneumothorax. The heart size is normal. IMPRESSION: 1. Worsened airspace opacities at the lung bases, consistent with atelectasis versus pneumonia. Review of Systems Review of Systems: Shortness of breath, pedal edema ankle edema Constitutional: Constitutional: Reports chills, Reports fatigue and Reports weakness Eyes: Eyes: Denies change in vision ENT: Denies dysphagia and Denies odynophagia Cardiovascular: Cardiovascular: Denies chest pain, Reports pedal edema, Denies radiating jaw, neck or arm pain and Denies palpitations Respiratory: Respiratory: Denies change in phlegm color, Reports cough and Reports dyspnea on exertion Gastrointestinal: Gastrointestinal: Denies abdominal pain, Denies diarrhea, Denies nausea and Denies vomiting Genitourinary: Genitourinary: Denies dysuria Musculoskeletal: Musculoskeletal: Denies arthralgias Integumentary/Breasts: Skin/Breast: Denies rash Neurologic: Denies focal weakness and Denies Sensory deficit (Neuro) Psychiatric: Psychiatric: Reports no additional psychiatric complaints and Reports as per HPI Endocrine: Endocrine: Denies cold intolerance, Denies fatigue, Denies flushing, Denies heat intolerance, Denies polyphagia, Denies polydipsia, Denies polyuria and Denies palpitations Hematologic/Lymphatic: Hematologic/Lymphatic: Reports no additional hematologic/lymphatic complaints and Reports as per HPI Allergic/Immunologic: Allergic/Immunologic: Reports no additional allergic/immunologic complaints and Reports as per HPI [facility] Past Medical History Medical History Anemia Anxiety Arthritis Asthma Cerebrovascular accident Chronic interstitial lung disease Chest CT in October 2020 with appearance of mild chronic interstitial lung disease and mild bronchiectasis. Chronic obstructive pulmonary disease Chronic respiratory failure with hypoxia, on home oxygen therapy Coronary artery disease Deep venous thrombosis Depression Diastolic congestive heart failure Gastroesophageal reflux disease Hyperlipidemia Hypertension Kidney stones Paroxysmal atrial fibrillation Pulmonary embolism Sleep apnea On oxygen, does not use CPAP. Surgical History Surgical History History of appendectomy History of cataract extraction History of hysterectomy History of right knee joint replacement History of tonsillectomy Family History Family History Mother Hypertension Family history of primary malignant neoplasm of liver Carcinoma of colon Sibling Hypertension Asthma Family history of elevated blood lipids Cerebrovascular accident Family history of malignant neoplasm of breast in first degree relative Family histo
[2023-11-15 21:02] LABS: Influenza A QL RT-PCR Negative (Negative); Influenza B QL RT-PCR Negative (Negative); RSV RNA, RT-PCR Negative (Negative); SARS-CoV-2 RNA PCR Negative (Negative)
[2023-11-15] MEDS: CEFEPIME 2 GM/NS 50 ML 2 GM/50 ML BAG IVPB (21:31)
[2023-11-15] MEDS: DOXYCYCLINE HYCLATE 100 MG TABLET PO (21:32)
[2023-11-15] MEDS: METOPROLOL TARTRATE 25 MG TABLET PO (21:32)
--- NOTE | 2023-11-15 22:21 | ADMGEN ---
This patient, Anna Jones, was admitted to IMU Room 206-01. Patient/family oriented to hospital policies and general routines including ID bracelet, bed and alarms, visiting hours, pain management, procedures, bathroom and other care routines, personal items, smoking policy, room service/diet, and visiting hours. Information on how to activate the Rapid Response Team has been discussed. Patient/Family are encouraged to report perceived risks to care and to ask questions if they do not understand what they are told or what they should do.
[2023-11-16] VITALS (17 sets, daily range): BP systolic 112–150; BP diastolic 53–86; PULSE 100–137; RESP 18–22; TEMP 36.4–37.3; O2SAT 93–99
[2023-11-16] MEDS: ACETAMINOPHEN 325 MG TABLET 650 MG PO ×3 (00:10→20:12)
[2023-11-16 04:05] LABS: Hematocrit 30.4 % (37.0-47.0); Mean Corpuscular HGB Conc 29.6 g/dl (32-36); Mean Corpuscular Hemoglobin 29.2 pg (26-34); Mean Corpuscular Volume 98.7 fl (80-100); Mean Platelet Volume 12.6 fl (7.4-10.4); Platelet Count Result 86 k/mm3 (150-375); Red Blood Count 3.08 M/mm3 (4.2-5.4); Red Cell Distribution Width 14.9 % (11.5-14.5); White Blood Count 5.1 K/mm3 (4.5-10.0)
[2023-11-16 04:17] LABS: Anion Gap 1 mmol/L (4-12); Blood Urea Nitrogen 36 mg/dL (7-17); Calcium 9.6 mg/dL (8.4-10.2); Carbon Dioxide 36 mmol/L (22-30); Chloride 101 mmol/L (98-107); Estimated CRCL calculation 22 ml/min; Estimated Glomerular Filt Rate 27; Glucose 109 mg/dL (65-110); Potassium 3.9 mmol/L (3.4-5.0); Sodium 138 mmol/L (137-145)
[2023-11-16 04:40] LABS: Total Cells Counted 100
[2023-11-16 04:42] LABS: Band Neutrophils Percent 7 % (0-6); Basophils Absolute Manual 0.05 K/mm3 (0.0-0.1); Basophils Percent Manual 1 % (0-1); Lymphocytes Absolute Manual 0.61 K/mm3 (1.1-4.5); Lymphocytes Percent Manual 12 % (18-44); Monocytes Absolute Manual 0.76 K/mm3 (0.1-0.90); Monocytes Percent Manual 15 % (3-9); Neutrophils Absolute Manual 3.67 K/mm3 (1.7-7.2); Neutrophils Percent Manual 65 % (46-73); Platelet Estimate Decreased (Adequate)
[2023-11-16 04:43] LABS: Anisocytosis 1+; Hypochromasia 1+; Schistocytes None Seen
[2023-11-16] MEDS: DOXYCYCLINE HYCLATE 100 MG TABLET PO ×2 (08:42→20:08)
[2023-11-16] MEDS: POTASSIUM CHLORIDE 20 MEQ ER TABLET PO (08:42)
[2023-11-16] MEDS: METOPROLOL TARTRATE 25 MG TABLET PO ×2 (08:42→20:08)
[2023-11-16] MEDS: PANTOPRAZOLE 40 MG TABLET PO (08:42)
[2023-11-16] MEDS: APIXABAN 2.5 MG TABLET PO ×2 (08:42→20:08)
[2023-11-16] MEDS: ROSUVASTATIN 10 MG TABLET 20 MG PO (08:42)
[2023-11-16] MEDS: EMPAGLIFLOZIN 10 MG TABLET BY MOUTH (08:42)
[2023-11-16] MEDS: cefTRIAXone 2 GM/NS 100 ML 2 GM/100 ML BAG IVPB (08:43)
[2023-11-16] MEDS: FUROSEMIDE INJ 40 MG/4 ML VIAL IV PUSH (08:43)
--- NOTE | 2023-11-16 14:16 | PM.IMPN ---
Progress Note: A&P Assessment and Plan (1) Pneumonia: Qualifiers: Laterality: bilateral Lung location: lower lobe of lung Pneumonia type: due to unspecified organism Qualified Code(s): J18.9 - Pneumonia, unspecified organism Code(s): J18.9 - Pneumonia, unspecified organism Status: Acute (2) Acute dyspnea: Code(s): R06.00 - Dyspnea, unspecified Status: Acute (3) CHF exacerbation: Qualifiers: Heart failure type: unspecified Qualified Code(s): I50.9 - Heart failure, unspecified Code(s): I50.9 - Heart failure, unspecified Status: Acute (4) Elevated troponin: Code(s): R79.89 - Other specified abnormal findings of blood chemistry Status: Acute (5) Acute on chronic hypoxic respiratory failure: Code(s): J96.21 - Acute and chronic respiratory failure with hypoxia Status: Acute (6) Chronic interstitial lung disease: Code(s): J84.9 - Interstitial pulmonary disease, unspecified Status: Chronic (7) Gastroesophageal reflux disease: Code(s): K21.9 - Gastro-esophageal reflux disease without esophagitis Status: Acute (8) Paroxysmal atrial fibrillation: Code(s): I48.0 - Paroxysmal atrial fibrillation Status: Chronic (9) Chronic obstructive pulmonary disease (COPD): Qualifiers: COPD type: unspecified COPD Qualified Code(s): J44.9 - Chronic obstructive pulmonary disease, unspecified Code(s): J44.9 - Chronic obstructive pulmonary disease, unspecified Status: Chronic (10) Sleep apnea: Qualifiers: Sleep apnea type: unspecified type Qualified Code(s): G47.30 - Sleep apnea, unspecified Code(s): G47.30 - Sleep apnea, unspecified Status: Chronic Plan This is a 83-year-old female with history of AFib COPD CHF presented with shortness of breath for past several days. She was recently admitted for pneumonia she was 2.5 L oxygen at home. He reports ongoing cough which is unchanged. Dyspnea on exertion no chest pain. On ED evaluation she was tachycardic with heart rate of 120s blood pressure stable. WBC was 5.1 hemoglobin of 9.8 creatinine 1.8 [place] [address]. Troponin was mildly elevated at 0.060 BNP was remarkably elevated at 19,800 thousand eight hundred influenza RSV COVID was negative. ABG 7.43/40/83/26. EKG showed AFib with rapid ventricular rate. Patient received a dose of Lasix and was started on antibiotic for possible recurrent pneumonia. Chest x-ray showed opacity in bilateral lung bases interpreted as atelectasis versus pneumonia. Most likely leave her presentation is related to a CHF exacerbation. Continue with diuresis 40 mg of IV Lasix. Also has CKD stage 3 will need to monitor renal function with diuresis. On empiric antibiotic for possible pneumonia will continue same with doxycycline and ceftriaxone AFib with RVR resume metoprolol and clonidine at home. CKD stage 3 Chronic interstitial lung disease COPD Chronic respiratory failure with hypoxia on home oxygen therapy History of DVT Hypertension Hyperlipidemia History of PE Sleep apnea on oxygen at night does not use CPAP DVT prophylaxis on apixaban Code status full code Subjective Date/time seen: 11/16/23 14:16 Interval history: Patient feels better. Breathing has improved. Minimal cough. Cough has persisted since her pneumonia leg swelling has worsened. Used to be on 40 mg Lasix was recently lowered to 20 mg Review of Systems Review of Systems: All systems reviewed & are unremarkable except as noted in HPI and below Exam Narrative: GENERAL: Well-developed, well-nourished, and in no acute distress. HEAD: Normocephalic, atraumatic. EYES: PERRLA and EOMI. ENT: Nares clear, no rhinorrhea or epistaxis.? Mucous membranes moist.? NECK: Supple.? No JVD CHEST: Bilateral lower lung field rales. Mildly tachypneic. No respiratory distress.? No wheezes or rhonchi HEART: Irregu
[2023-11-16] MEDS: cloNIDine HCL 0.1 MG TABLET PO (20:08)
[2023-11-17] VITALS (13 sets, daily range): BP systolic 111–148; BP diastolic 56–88; PULSE 62–127; RESP 16–20; TEMP 36.3–36.5; O2SAT 90–100
[2023-11-17] MEDS: ACETAMINOPHEN 325 MG TABLET 650 MG PO ×2 (03:12→20:32)
[2023-11-17 04:02] LABS: Basophils Percent Auto 0.7 % (0.2-1.2); Eosinophils Absolute Auto 0.2 K/mm3 (0-0.3); Eosinophils Percent Auto 3.5 % (0-4.4); Hematocrit 29.1 % (37.0-47.0); Hemoglobin 8.5 g/dL (12.0-15.0); Immature Granulocyte Absolute 0.02 K/mm3 (0.00-0.031); Immature Granulocyte Percent A 0.4 % (0-0.5); Immature Platelet Fraction Pct 10.6 % (0.9-11.2); Lymphocytes Absolute Auto 0.72 K/mm3 (0.9-3.2); Lymphocytes Percent Auto 13.3 % (18.3-44.2); Mean Corpuscular HGB Conc 29.2 g/dl (32-36); Mean Corpuscular Hemoglobin 28.9 pg (26-34); Mean Platelet Volume 12.5 fl (7.4-10.4); Monocytes Absolute Auto 1.1 K/mm3 (0.1-0.6); Monocytes Percent Auto 20.9 % (2.6-8.5); Neutrophils Absolute Auto 3.3 K/mm3 (1.3-6.7); Neutrophils Percent Auto 61.2 % (45.5-73.1); Platelet Count Result 100 k/mm3 (150-375); Red Blood Count 2.94 M/mm3 (4.2-5.4); Red Cell Distribution Width 14.8 % (11.5-14.5); White Blood Count 5.4 K/mm3 (4.5-10.0)
[2023-11-17 04:12] LABS: Alanine Aminotransferase 15 U/L (6-35); Albumin Level 3.2 g/dL (3.5-5.1); Alkaline Phosphatase 69 U/L (38-126); Anion Gap 2 mmol/L (4-12); Aspartate Amino Transferase 24 U/L (14-36); Bilirubin,Total 0.6 mg/dL (0.2-1.3); Blood Urea Nitrogen 44 mg/dL (7-17); Calcium 9.6 mg/dL (8.4-10.2); Carbon Dioxide 35 mmol/L (22-30); Chloride 101 mmol/L (98-107); Estimated CRCL calculation 20 ml/min; Estimated Glomerular Filt Rate 24; Glucose 111 mg/dL (65-110); Magnesium 2.2 mg/dL (1.6-2.3); Sodium 138 mmol/L (137-145)
[2023-11-17 04:36] LABS: Anisocytosis 1+; Hypochromasia 1+; Platelet Estimate Decreased (Adequate); Schistocytes None Seen
[2023-11-17] MEDS: cefTRIAXone 2 GM/NS 100 ML 2 GM/100 ML BAG IVPB (09:20)
[2023-11-17] MEDS: PANTOPRAZOLE 40 MG TABLET PO (09:21)
[2023-11-17] MEDS: ROSUVASTATIN 10 MG TABLET 20 MG PO (09:21)
[2023-11-17] MEDS: EMPAGLIFLOZIN 10 MG TABLET BY MOUTH (09:21)
[2023-11-17] MEDS: METOPROLOL TARTRATE 25 MG TABLET PO (09:22)
[2023-11-17] MEDS: APIXABAN 2.5 MG TABLET PO ×2 (09:22→20:32)
[2023-11-17] MEDS: DOXYCYCLINE HYCLATE 100 MG TABLET PO ×2 (09:22→20:32)
[2023-11-17] MEDS: FUROSEMIDE INJ 40 MG/4 ML VIAL IV PUSH (09:23)
[2023-11-17] MEDS: POTASSIUM CHLORIDE 20 MEQ ER TABLET PO (09:23)
--- NOTE | 2023-11-17 10:23 | PM.IMPN ---
Progress Note: A&P Assessment and Plan (1) Pneumonia: Qualifiers: Laterality: bilateral Lung location: lower lobe of lung Pneumonia type: due to unspecified organism Qualified Code(s): J18.9 - Pneumonia, unspecified organism Code(s): J18.9 - Pneumonia, unspecified organism Status: Acute (2) Acute dyspnea: Code(s): R06.00 - Dyspnea, unspecified Status: Acute (3) CHF exacerbation: Qualifiers: Heart failure type: unspecified Qualified Code(s): I50.9 - Heart failure, unspecified Code(s): I50.9 - Heart failure, unspecified Status: Acute (4) Elevated troponin: Code(s): R79.89 - Other specified abnormal findings of blood chemistry Status: Acute (5) Acute on chronic hypoxic respiratory failure: Code(s): J96.21 - Acute and chronic respiratory failure with hypoxia Status: Acute (6) Chronic interstitial lung disease: Code(s): J84.9 - Interstitial pulmonary disease, unspecified Status: Chronic (7) Gastroesophageal reflux disease: Code(s): K21.9 - Gastro-esophageal reflux disease without esophagitis Status: Acute (8) Paroxysmal atrial fibrillation: Code(s): I48.0 - Paroxysmal atrial fibrillation Status: Chronic (9) Chronic obstructive pulmonary disease (COPD): Qualifiers: COPD type: unspecified COPD Qualified Code(s): J44.9 - Chronic obstructive pulmonary disease, unspecified Code(s): J44.9 - Chronic obstructive pulmonary disease, unspecified Status: Chronic (10) Sleep apnea: Qualifiers: Sleep apnea type: unspecified type Qualified Code(s): G47.30 - Sleep apnea, unspecified Code(s): G47.30 - Sleep apnea, unspecified Status: Chronic Plan This is a 83-year-old female with history of AFib COPD CHF presented with shortness of breath for past several days. She was recently admitted for pneumonia she was 2.5 L oxygen at home. He reports ongoing cough which is unchanged. Dyspnea on exertion no chest pain. On ED evaluation she was tachycardic with heart rate of 120s blood pressure stable. WBC was 5.1 hemoglobin of 9.8 creatinine 1.8 [place] [address]. Troponin was mildly elevated at 0.060 BNP was remarkably elevated at 19,800 thousand eight hundred influenza RSV COVID was negative. ABG 7.43/40/83/26. EKG showed AFib with rapid ventricular rate. Patient received a dose of Lasix and was started on antibiotic for possible recurrent pneumonia. Chest x-ray showed opacity in bilateral lung bases interpreted as atelectasis versus pneumonia. Most likely leave her presentation is related to a CHF exacerbation. Continue with diuresis 40 mg of IV Lasix. Also has CKD stage 3 will need to monitor renal function with diuresis. Creatinine slightly up however remains within range compared to previous levels. On empiric antibiotic for possible pneumonia will continue same with doxycycline and ceftriaxone AFib with RVR resume metoprolol and clonidine at home. CKD stage 3 Chronic interstitial lung disease COPD Chronic respiratory failure with hypoxia on home oxygen therapy History of DVT Hypertension Hyperlipidemia History of PE Sleep apnea on oxygen at night does not use CPAP DVT prophylaxis on apixaban Code status full code Subjective Date/time seen: 11/17/23 10:23 Interval history: No overnight events. Breathing has improved. Minimal cough persist. Leg swelling persists. Labs reviewed. Discussed with the nursing staff. Review of Systems Review of Systems: All systems reviewed & are unremarkable except as noted in HPI and below Exam Narrative: GENERAL: Well-developed, well-nourished, and in no acute distress. HEAD: Normocephalic, atraumatic. EYES: PERRLA and EOMI. ENT: Nares clear, no rhinorrhea or epistaxis.? Mucous membranes moist.? NECK: Supple.? No JVD CHEST: Bilateral lower lung field rales. Mildly tachypneic. No respiratory distress
[2023-11-17] MEDS: METOPROLOL TARTRATE 12.5 MG TABLET PO (12:55)
--- NOTE | 2023-11-17 19:40 | PC.NURSE ---
This patient, Anna Jones, was transferred to [facility] on 11/17/23 at 1940. Personal belongings sent with patient. Report given to SHERMAN Osorio. Appropriate documentation sent with patient.
[2023-11-17] MEDS: cloNIDine HCL 0.1 MG TABLET PO (20:32)
[2023-11-17] MEDS: METOPROLOL TARTRATE 12.5 MG TABLET 37.5 MG PO (20:32)
[2023-11-18] VITALS (11 sets, daily range): BP systolic 110–139; BP diastolic 62–86; PULSE 81–116; RESP 16–24; TEMP 36.3–36.6; O2SAT 94–99
[2023-11-18 06:32] LABS: Basophils Percent Auto 0.5 % (0.2-1.2); Eosinophils Absolute Auto 0.3 K/mm3 (0-0.3); Eosinophils Percent Auto 6.5 % (0-4.4); Hematocrit 31.2 % (37.0-47.0); Hemoglobin 8.9 g/dL (12.0-15.0); Immature Granulocyte Absolute 0.02 K/mm3 (0.00-0.031); Immature Granulocyte Percent A 0.5 % (0-0.5); Immature Platelet Fraction Pct 12.9 % (0.9-11.2); Lymphocytes Absolute Auto 0.76 K/mm3 (0.9-3.2); Lymphocytes Percent Auto 18.4 % (18.3-44.2); Mean Corpuscular HGB Conc 28.5 g/dl (32-36); Mean Corpuscular Hemoglobin 28.9 pg (26-34); Mean Corpuscular Volume 101.3 fl (80-100); Mean Platelet Volume 12.3 fl (7.4-10.4); Monocytes Absolute Auto 0.8 K/mm3 (0.1-0.6); Monocytes Percent Auto 18.9 % (2.6-8.5); Neutrophils Absolute Auto 2.3 K/mm3 (1.3-6.7); Neutrophils Percent Auto 55.2 % (45.5-73.1); Platelet Count Result 104 k/mm3 (150-375); Red Blood Count 3.08 M/mm3 (4.2-5.4); Red Cell Distribution Width 14.8 % (11.5-14.5); White Blood Count 4.1 K/mm3 (4.5-10.0)
[2023-11-18 06:46] LABS: Alanine Aminotransferase 19 U/L (6-35); Albumin Level 3.3 g/dL (3.5-5.1); Alkaline Phosphatase 72 U/L (38-126); Anion Gap 2 mmol/L (4-12); Aspartate Amino Transferase 30 U/L (14-36); Bilirubin,Total 0.4 mg/dL (0.2-1.3); Blood Urea Nitrogen 47 mg/dL (7-17); Calcium 9.5 mg/dL (8.4-10.2); Carbon Dioxide 35 mmol/L (22-30); Chloride 102 mmol/L (98-107); Estimated CRCL calculation 20 ml/min; Estimated Glomerular Filt Rate 24; Glucose 103 mg/dL (65-110); Magnesium 2.2 mg/dL (1.6-2.3); Potassium 3.8 mmol/L (3.4-5.0); Sodium 139 mmol/L (137-145)
[2023-11-18 06:50] LABS: NT Pro B Type Natriuretic Pept 13800 pg/mL (19.9-100)
[2023-11-18] MEDS: METOPROLOL TARTRATE 12.5 MG TABLET 37.5 MG PO ×2 (08:56→21:39)
[2023-11-18] MEDS: ROSUVASTATIN 10 MG TABLET 20 MG PO (08:57)
[2023-11-18] MEDS: POTASSIUM CHLORIDE 20 MEQ ER TABLET PO (08:58)
[2023-11-18] MEDS: PANTOPRAZOLE 40 MG TABLET PO (08:58)
[2023-11-18] MEDS: EMPAGLIFLOZIN 10 MG TABLET BY MOUTH (08:58)
[2023-11-18] MEDS: DOXYCYCLINE HYCLATE 100 MG TABLET PO ×2 (08:59→21:38)
[2023-11-18] MEDS: APIXABAN 2.5 MG TABLET PO ×2 (08:59→21:38)
[2023-11-18 09:16] LABS: Platelet Estimate Decreased (Adequate); Schistocytes Rare
[2023-11-18 09:17] LABS: Anisocytosis 1+; Hypochromasia 1+
[2023-11-18] MEDS: FUROSEMIDE INJ 40 MG/4 ML VIAL IV PUSH (09:31)
[2023-11-18] MEDS: cefTRIAXone 2 GM/NS 100 ML 2 GM/100 ML BAG IVPB (09:31)
--- NOTE | 2023-11-18 10:37 | PC.NURSE ---
Provider called to notify of Doppler results. No answer. Mesage left. Will follow up.
--- NOTE | 2023-11-18 12:31 | PM.IMPN ---
Progress Note: A&P Assessment and Plan (1) Pneumonia: Qualifiers: Laterality: bilateral Lung location: lower lobe of lung Pneumonia type: due to unspecified organism Qualified Code(s): J18.9 - Pneumonia, unspecified organism Code(s): J18.9 - Pneumonia, unspecified organism Status: Acute (2) Acute dyspnea: Code(s): R06.00 - Dyspnea, unspecified Status: Acute (3) CHF exacerbation: Qualifiers: Heart failure type: unspecified Qualified Code(s): I50.9 - Heart failure, unspecified Code(s): I50.9 - Heart failure, unspecified Status: Acute (4) Elevated troponin: Code(s): R79.89 - Other specified abnormal findings of blood chemistry Status: Acute (5) Acute on chronic hypoxic respiratory failure: Code(s): J96.21 - Acute and chronic respiratory failure with hypoxia Status: Acute (6) Chronic interstitial lung disease: Code(s): J84.9 - Interstitial pulmonary disease, unspecified Status: Chronic (7) Gastroesophageal reflux disease: Code(s): K21.9 - Gastro-esophageal reflux disease without esophagitis Status: Acute (8) Paroxysmal atrial fibrillation: Code(s): I48.0 - Paroxysmal atrial fibrillation Status: Chronic (9) Chronic obstructive pulmonary disease (COPD): Qualifiers: COPD type: unspecified COPD Qualified Code(s): J44.9 - Chronic obstructive pulmonary disease, unspecified Code(s): J44.9 - Chronic obstructive pulmonary disease, unspecified Status: Chronic (10) Sleep apnea: Qualifiers: Sleep apnea type: unspecified type Qualified Code(s): G47.30 - Sleep apnea, unspecified Code(s): G47.30 - Sleep apnea, unspecified Status: Chronic Plan This is a 83-year-old female with history of AFib COPD CHF presented with shortness of breath for past several days. She was recently admitted for pneumonia she was 2.5 L oxygen at home. He reports ongoing cough which is unchanged. Dyspnea on exertion no chest pain. On ED evaluation she was tachycardic with heart rate of 120s blood pressure stable. WBC was 5.1 hemoglobin of 9.8 creatinine 1.8 platelet count was [address]. Troponin was mildly elevated at 0.060 BNP was remarkably elevated at 19,800 thousand eight hundred influenza RSV COVID was negative. ABG 7.43/40/83/26. EKG showed AFib with rapid ventricular rate. Patient received a dose of Lasix and was started on antibiotic for possible recurrent pneumonia. Chest x-ray showed opacity in bilateral lung bases interpreted as atelectasis versus pneumonia. Most likely her presentation is related to a CHF exacerbation. Continue with diuresis 40 mg of IV Lasix. Also has CKD stage 3 will need to monitor renal function with diuresis. Creatinine slightly up however remains within range compared to previous levels. On empiric antibiotic for possible pneumonia will continue same with doxycycline and ceftriaxone. Venous appearing poor post did feel pain along with persistent chronic mid right femoral vein. Patient remains on anticoagulation chronically with Eliquis renally dosed. Will switch to oral antibiotic AFib with RVR resume metoprolol and clonidine at home. CKD stage 3 Chronic interstitial lung disease COPD Chronic respiratory failure with hypoxia on home oxygen therapy History of DVT Hypertension Hyperlipidemia History of PE Sleep apnea on oxygen at night does not use CPAP DVT prophylaxis on apixaban Code status full code Subjective Date/time seen: 11/18/23 12:31 Interval history: No overnight events. Feels better overall leg swelling is improved. Has some cough which is mild Review of Systems Review of Systems: All systems reviewed & are unremarkable except as noted in HPI and below Exam Narrative: GENERAL: Well-developed, well-nourished, and in no acute distress. HEAD: Normocephalic, atraumatic. EYES: PERRLA and EOMI. ENT: Nares clear, no rhi
[2023-11-18] MEDS: cloNIDine HCL 0.1 MG TABLET PO (21:38)
[2023-11-19] VITALS (11 sets, daily range): BP systolic 119–153; BP diastolic 58–96; PULSE 57–148; RESP 16–22; TEMP 36.1–36.4; O2SAT 95–100
--- NOTE | 2023-11-19 | ECHO_ITS ---
Patient Info Name: Anna Jones Age: 83 years : 1940 Gender: Female Ht: 63 in Wt: 190 lbs BSA: 1.99 m2 HR: 53 bpm BP: 146 / 91 mmHg Technical Quality: Good Exam Date: 11/19/2023 3:31 PM Exam Location: Echo Lab Patient Status: Inpatient Admit Date: 11/16/2023 Staff Ordering Physician: Adan Garcia MD Claim Manager: Vin Grimes RDCS Attending Provider: Heidi Coe MD Exam Type: CA echo doppler color flow Study Info Indications - sob, chf, a fib Complete two-dimensional, color flow and Doppler transthoracic echocardiogram is performed. Summary 1. Complete two-dimensional, color flow and Doppler transthoracic echocardiogram is performed. 2. Left ventricular chamber dimension is mildly enlarged. 3. Left ventricular systolic function is normal, estimated at 55-60%. 4. There is mild concentric increased left ventricular wall thickness. 5. The left ventricular diastolic function is abnormal. 6. E/e' 14 is mildly elevated. 7. Left atrial chamber dimension is moderately enlarged. 8. Right atrial chamber dimension is severely enlarged. 9. There is mild aortic valve sclerosis. 10. The mitral valve has mildly calcified annulus. 11. There is mild to moderate mitral valve regurgitation. 12. There is moderate tricuspid valve regurgitation. 13. Mild pulmonary hypertension, estimated pulmonary arterial systolic pressure is 46 mmHg. 14. There is trace pulmonic regurgitation. Left Ventricle E/e' 14 is mildly elevated. Left ventricular chamber dimension is mildly enlarged. Left ventricular systolic function is normal, estimated at 55-60%. There is mild concentric increased left ventricular wall thickness. The left ventricular diastolic function is abnormal. Right Ventricle Right ventricular chamber dimension is normal. Right ventricular systolic function is normal. Left Atria Left atrial chamber dimension is moderately enlarged. Right Atria Right atrial chamber dimension is severely enlarged. Aortic Valve The aortic valve is trileaflet. There is mild aortic valve sclerosis. There is no aortic valve stenosis. There is no aortic valve regurgitation. Pulmonic Valve There is trace pulmonic regurgitation. Mitral Valve The mitral valve has mildly calcified annulus. There is no mitral valve stenosis. There is mild to moderate mitral valve regurgitation. Tricuspid Valve There is moderate tricuspid valve regurgitation. Mild pulmonary hypertension, estimated pulmonary arterial systolic pressure is 46 mmHg. Pericardium/Pleural There is no pericardial effusion. Inferior Vena Cava Normal inferior vena cava with >50% collapse upon inspiration consistent with normal right atrial pressure, 5 mmHg. Aorta The aortic root size at the sinus of Valsalva is normal. Left Ventricular Outflow Tract Name Value Normal LVOT 2D LVOT Diameter 2.2 cm LVOT Doppler LVOT Peak Gradient 4 mmHg LVOT Mean Gradient 2 mmHg LVOT VTI 19 cm LVOT VTI/AV VTI Ratio 0.7 LVOT Stroke Volume 72 ml LVOT CO 7.9 l/min
[2023-11-19 06:16] LABS: Eosinophils Absolute Auto 0.3 K/mm3 (0-0.3); Eosinophils Percent Auto 8.1 % (0-4.4); Hematocrit 31.4 % (37.0-47.0); Hemoglobin 9.4 g/dL (12.0-15.0); Immature Granulocyte Absolute 0.01 K/mm3 (0.00-0.031); Immature Granulocyte Percent A 0.2 % (0-0.5); Lymphocytes Absolute Auto 0.77 K/mm3 (0.9-3.2); Mean Corpuscular HGB Conc 29.9 g/dl (32-36); Mean Corpuscular Hemoglobin 29.7 pg (26-34); Mean Corpuscular Volume 99.1 fl (80-100); Mean Platelet Volume 11.8 fl (7.4-10.4); Monocytes Absolute Auto 0.8 K/mm3 (0.1-0.6); Monocytes Percent Auto 20.5 % (2.6-8.5); Neutrophils Absolute Auto 2.1 K/mm3 (1.3-6.7); Neutrophils Percent Auto 51.2 % (45.5-73.1); Platelet Count Result 162 k/mm3 (150-375); Red Blood Count 3.17 M/mm3 (4.2-5.4); Red Cell Distribution Width 14.5 % (11.5-14.5); White Blood Count 4.1 K/mm3 (4.5-10.0)
[2023-11-19 06:29] LABS: Alanine Aminotransferase 19 U/L (6-35); Albumin Level 3.1 g/dL (3.5-5.1); Alkaline Phosphatase 72 U/L (38-126); Anion Gap 1 mmol/L (4-12); Aspartate Amino Transferase 29 U/L (14-36); Bilirubin,Total 0.4 mg/dL (0.2-1.3); Blood Urea Nitrogen 46 mg/dL (7-17); Calcium 9.6 mg/dL (8.4-10.2); Carbon Dioxide 38 mmol/L (22-30); Chloride 102 mmol/L (98-107); Estimated CRCL calculation 20 ml/min; Estimated Glomerular Filt Rate 24; Glucose 96 mg/dL (65-110); Magnesium 2.2 mg/dL (1.6-2.3); Potassium 4.3 mmol/L (3.4-5.0); Sodium 141 mmol/L (137-145)
[2023-11-19] MEDS: ROSUVASTATIN 10 MG TABLET 20 MG PO (09:22)
[2023-11-19] MEDS: FUROSEMIDE 40 MG TABLET PO (09:23)
[2023-11-19] MEDS: EMPAGLIFLOZIN 10 MG TABLET BY MOUTH (09:23)
[2023-11-19] MEDS: DOXYCYCLINE HYCLATE 100 MG TABLET PO ×2 (09:23→21:00)
[2023-11-19] MEDS: CEFDINIR 300 MG CAPSULE PO (09:23)
[2023-11-19] MEDS: METOPROLOL TARTRATE 12.5 MG TABLET 37.5 MG PO (09:24)
[2023-11-19] MEDS: PANTOPRAZOLE 40 MG TABLET PO (09:24)
[2023-11-19] MEDS: APIXABAN 2.5 MG TABLET PO ×2 (09:24→21:00)
[2023-11-19] MEDS: POTASSIUM CHLORIDE 20 MEQ ER TABLET PO (09:24)
--- NOTE | 2023-11-19 11:10 | P.CDI_ITS ---
CDI Query Clarification Request Documented history of CHF. CHF noted in the assessment and plan. Elevated BNP on 11/18/23 lab work. Patient presented with shortness of breath and cough. Lasix listed as a home medication. Patient receiving Lasix. Please specify type and acuity of heart failure if known. * Acute * Chronic * Acute on Chronic * Unknown * Systolic * Diastolic * Combined Systolic and Diastolic * Unknown
--- NOTE | 2023-11-19 13:11 | PM.DS ---
DS: Admitting Diagnosis Discharge Date 11/19/2023 Admitting Diagnosis Shortness of breath DS: Discharge Diagnosis Discharge Diagnosis (1) Pneumonia: Qualifiers: Laterality: bilateral Lung location: lower lobe of lung Pneumonia type: due to unspecified organism Qualified Code(s): J18.9 - Pneumonia, unspecified organism Code(s): J18.9 - Pneumonia, unspecified organism Status: Acute (2) Acute dyspnea: Code(s): R06.00 - Dyspnea, unspecified Status: Acute (3) CHF exacerbation: Qualifiers: Heart failure type: unspecified Qualified Code(s): I50.9 - Heart failure, unspecified Code(s): I50.9 - Heart failure, unspecified Status: Acute (4) Elevated troponin: Code(s): R79.89 - Other specified abnormal findings of blood chemistry Status: Acute (5) Acute on chronic hypoxic respiratory failure: Code(s): J96.21 - Acute and chronic respiratory failure with hypoxia Status: Acute (6) Chronic interstitial lung disease: Code(s): J84.9 - Interstitial pulmonary disease, unspecified Status: Chronic (7) Gastroesophageal reflux disease: Code(s): K21.9 - Gastro-esophageal reflux disease without esophagitis Status: Acute (8) Paroxysmal atrial fibrillation: Code(s): I48.0 - Paroxysmal atrial fibrillation Status: Chronic (9) Chronic obstructive pulmonary disease (COPD): Qualifiers: COPD type: unspecified COPD Qualified Code(s): J44.9 - Chronic obstructive pulmonary disease, unspecified Code(s): J44.9 - Chronic obstructive pulmonary disease, unspecified Status: Chronic (10) Sleep apnea: Qualifiers: Sleep apnea type: unspecified type Qualified Code(s): G47.30 - Sleep apnea, unspecified Code(s): G47.30 - Sleep apnea, unspecified Status: Chronic DS: Summary Hospital Course Hospital Course: This is a 83-year-old female with history of AFib COPD chronic diastolic CHF presented with shortness of breath for past several days.? She was recently admitted for pneumonia she was 2.5 L oxygen at home.? He reports ongoing cough which is unchanged.? Dyspnea on exertion no chest pain.? On ED evaluation she was tachycardic with heart rate of 120s blood pressure stable.? WBC was 5.1 hemoglobin of 9.8 creatinine 1.8 platelet count was 98686.? Troponin was mildly elevated at 0.060 BNP was remarkably elevated at 19,800 thousand eight hundred influenza RSV COVID was negative.? ABG 7.43/40/83/26.? EKG showed AFib with rapid ventricular rate.? Patient received a dose of Lasix and was started on antibiotic for possible recurrent pneumonia.? Chest x-ray showed opacity in bilateral lung bases interpreted as atelectasis versus pneumonia. Most likely her presentation is related to a acute on chronic diastolic CHF exacerbation versus pneumonia.? Continue with diuresis 40 mg of IV Lasix.? Also has CKD stage 3 will need to monitor renal function with diuresis.? Creatinine slightly up however remains within range compared to previous levels.? On empiric antibiotic for possible pneumonia will continue same with doxycycline and ceftriaxone.? 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 Previous study was done back in 2021 comparatively. 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 Patient remains on anticoagulation chronically with Eliquis renally dosed and will continue that. Will switch to Lasix 40 mg daily. She reports that her Lasix dose was recently lowered to 20 mg daily. Possible pneumonia on cefdinir and doxycycline will continue to complete 7 days course AFib with RVR resume metoprolol and clonidine at home.? CKD stage 3 Chronic interstitial lung disease COPD Chronic respiratory failure with hypoxia on home oxygen therapy History of DVT Hypertension Hyperlipidemia History of PE Sleep apne
--- NOTE | 2023-11-19 13:51 | PM.IMPN ---
Progress Note: A&P Assessment and Plan (1) Pneumonia: Qualifiers: Laterality: bilateral Lung location: lower lobe of lung Pneumonia type: due to unspecified organism Qualified Code(s): J18.9 - Pneumonia, unspecified organism Code(s): J18.9 - Pneumonia, unspecified organism Status: Acute (2) Acute dyspnea: Code(s): R06.00 - Dyspnea, unspecified Status: Acute (3) CHF exacerbation: Qualifiers: Heart failure type: unspecified Qualified Code(s): I50.9 - Heart failure, unspecified Code(s): I50.9 - Heart failure, unspecified Status: Acute (4) Elevated troponin: Code(s): R79.89 - Other specified abnormal findings of blood chemistry Status: Acute (5) Acute on chronic hypoxic respiratory failure: Code(s): J96.21 - Acute and chronic respiratory failure with hypoxia Status: Acute (6) Chronic interstitial lung disease: Code(s): J84.9 - Interstitial pulmonary disease, unspecified Status: Chronic (7) Gastroesophageal reflux disease: Code(s): K21.9 - Gastro-esophageal reflux disease without esophagitis Status: Acute (8) Paroxysmal atrial fibrillation: Code(s): I48.0 - Paroxysmal atrial fibrillation Status: Chronic (9) Chronic obstructive pulmonary disease (COPD): Qualifiers: COPD type: unspecified COPD Qualified Code(s): J44.9 - Chronic obstructive pulmonary disease, unspecified Code(s): J44.9 - Chronic obstructive pulmonary disease, unspecified Status: Chronic (10) Sleep apnea: Qualifiers: Sleep apnea type: unspecified type Qualified Code(s): G47.30 - Sleep apnea, unspecified Code(s): G47.30 - Sleep apnea, unspecified Status: Chronic Plan This is a 83-year-old female with history of AFib COPD CHF presented with shortness of breath for past several days. She was recently admitted for pneumonia she was 2.5 L oxygen at home. He reports ongoing cough which is unchanged. Dyspnea on exertion no chest pain. On ED evaluation she was tachycardic with heart rate of 120s blood pressure stable. WBC was 5.1 hemoglobin of 9.8 creatinine 1.8 platelet count was 82957. Troponin was mildly elevated at 0.060 BNP was remarkably elevated at 19,800 thousand eight hundred influenza RSV COVID was negative. ABG 7.43/40/83/26. EKG showed AFib with rapid ventricular rate. Patient received a dose of Lasix and was started on antibiotic for possible recurrent pneumonia. Chest x-ray showed opacity in bilateral lung bases interpreted as atelectasis versus pneumonia. Most likely her presentation is related to a CHF exacerbation. Continue with diuresis 40 mg of IV Lasix. Also has CKD stage 3 will need to monitor renal function with diuresis. Creatinine slightly up however remains within range compared to previous levels. On empiric antibiotic for possible pneumonia will continue same with doxycycline and ceftriaxone. Venous appearing poor post did feel pain along with persistent chronic mid right femoral vein. Patient remains on anticoagulation chronically with Eliquis renally dosed. Will switch to oral antibiotic. AFib with RVR resume metoprolol and clonidine at home. Metoprolol dose increased. Will up titrate to 50 mg b.i.d. will also check echocardiogram CKD stage 3 Chronic interstitial lung disease COPD Chronic respiratory failure with hypoxia on home oxygen therapy History of DVT Hypertension Hyperlipidemia History of PE Sleep apnea on oxygen at night does not use CPAP DVT prophylaxis on apixaban Code status full code Subjective Date/time seen: 11/19/23 13:51 Interval history: She states she is feeling better. Cough is minimal. Shortness of breath with exertion. Work with therapy today and was tachycardic and got short of breath had to rest. Review of Systems Review of Systems: All systems reviewed & are unremarkable except as noted in HPI and below Exam Na
[2023-11-19] MEDS: METOPROLOL TARTRATE 50 MG TAB PO (18:46)
[2023-11-19] MEDS: cloNIDine HCL 0.1 MG TABLET PO (21:00)
[2023-11-20] VITALS (11 sets, daily range): BP systolic 110–125; BP diastolic 51–65; PULSE 52–110; RESP 14–18; TEMP 36.2–36.5; O2SAT 98–100
[2023-11-20 07:08] LABS: Basophils Percent Auto 0.8 % (0.2-1.2); Eosinophils Absolute Auto 0.3 K/mm3 (0-0.3); Eosinophils Percent Auto 7.4 % (0-4.4); Hematocrit 32.4 % (37.0-47.0); Hemoglobin 9.4 g/dL (12.0-15.0); Immature Granulocyte Absolute 0.01 K/mm3 (0.00-0.031); Immature Granulocyte Percent A 0.3 % (0-0.5); Lymphocytes Absolute Auto 0.88 K/mm3 (0.9-3.2); Lymphocytes Percent Auto 22.4 % (18.3-44.2); Mean Corpuscular Hemoglobin 29.4 pg (26-34); Mean Corpuscular Volume 101.3 fl (80-100); Mean Platelet Volume 11.7 fl (7.4-10.4); Monocytes Absolute Auto 0.9 K/mm3 (0.1-0.6); Monocytes Percent Auto 21.9 % (2.6-8.5); Neutrophils Absolute Auto 1.9 K/mm3 (1.3-6.7); Neutrophils Percent Auto 47.2 % (45.5-73.1); Platelet Count Result 171 k/mm3 (150-375); Red Cell Distribution Width 14.3 % (11.5-14.5); White Blood Count 3.9 K/mm3 (4.5-10.0)
[2023-11-20 07:33] LABS: Alanine Aminotransferase 18 U/L (6-35); Albumin Level 3.1 g/dL (3.5-5.1); Alkaline Phosphatase 71 U/L (38-126); Anion Gap 1 mmol/L (4-12); Aspartate Amino Transferase 28 U/L (14-36); Bilirubin,Total 0.4 mg/dL (0.2-1.3); Blood Urea Nitrogen 44 mg/dL (7-17); Calcium 9.5 mg/dL (8.4-10.2); Carbon Dioxide 39 mmol/L (22-30); Chloride 100 mmol/L (98-107); Estimated CRCL calculation 21 ml/min; Estimated Glomerular Filt Rate 25; Glucose 123 mg/dL (65-110); Magnesium 2.3 mg/dL (1.6-2.3); Potassium 4.1 mmol/L (3.4-5.0); Sodium 140 mmol/L (137-145)
[2023-11-20] MEDS: ROSUVASTATIN 10 MG TABLET 20 MG PO (08:15)
[2023-11-20] MEDS: EMPAGLIFLOZIN 10 MG TABLET BY MOUTH (08:16)
[2023-11-20] MEDS: CEFDINIR 300 MG CAPSULE PO (08:16)
[2023-11-20] MEDS: DOXYCYCLINE HYCLATE 100 MG TABLET PO ×2 (08:16→20:46)
[2023-11-20] MEDS: APIXABAN 2.5 MG TABLET PO ×2 (08:16→20:46)
[2023-11-20] MEDS: METOPROLOL TARTRATE 50 MG TAB PO ×2 (08:16→20:46)
[2023-11-20] MEDS: POTASSIUM CHLORIDE 20 MEQ ER TABLET PO (08:16)
[2023-11-20] MEDS: FUROSEMIDE 40 MG TABLET PO (08:16)
[2023-11-20] MEDS: PANTOPRAZOLE 40 MG TABLET PO (08:16)
--- NOTE | 2023-11-20 19:21 | PM.IMPN ---
Progress Note: A&P Assessment and Plan (1) Pneumonia: Qualifiers: Laterality: bilateral Lung location: lower lobe of lung Pneumonia type: due to unspecified organism Qualified Code(s): J18.9 - Pneumonia, unspecified organism Code(s): J18.9 - Pneumonia, unspecified organism Status: Acute (2) Acute dyspnea: Code(s): R06.00 - Dyspnea, unspecified Status: Acute (3) CHF exacerbation: Qualifiers: Heart failure type: unspecified Qualified Code(s): I50.9 - Heart failure, unspecified Code(s): I50.9 - Heart failure, unspecified Status: Acute (4) Elevated troponin: Code(s): R79.89 - Other specified abnormal findings of blood chemistry Status: Acute (5) Acute on chronic hypoxic respiratory failure: Code(s): J96.21 - Acute and chronic respiratory failure with hypoxia Status: Acute (6) Chronic interstitial lung disease: Code(s): J84.9 - Interstitial pulmonary disease, unspecified Status: Chronic (7) Gastroesophageal reflux disease: Code(s): K21.9 - Gastro-esophageal reflux disease without esophagitis Status: Acute (8) Paroxysmal atrial fibrillation: Code(s): I48.0 - Paroxysmal atrial fibrillation Status: Chronic (9) Chronic obstructive pulmonary disease (COPD): Qualifiers: COPD type: unspecified COPD Qualified Code(s): J44.9 - Chronic obstructive pulmonary disease, unspecified Code(s): J44.9 - Chronic obstructive pulmonary disease, unspecified Status: Chronic (10) Sleep apnea: Qualifiers: Sleep apnea type: unspecified type Qualified Code(s): G47.30 - Sleep apnea, unspecified Code(s): G47.30 - Sleep apnea, unspecified Status: Chronic Plan This is a 83-year-old female with history of AFib COPD CHF presented with shortness of breath for past several days. She was recently admitted for pneumonia she was 2.5 L oxygen at home. He reports ongoing cough which is unchanged. Dyspnea on exertion no chest pain. On ED evaluation she was tachycardic with heart rate of 120s blood pressure stable. WBC was 5.1 hemoglobin of 9.8 creatinine 1.8 platelet count was 95416. Troponin was mildly elevated at 0.060 BNP was remarkably elevated at 19,800 thousand eight hundred influenza RSV COVID was negative. ABG 7.43/40/83/26. EKG showed AFib with rapid ventricular rate. Patient received a dose of Lasix and was started on antibiotic for possible recurrent pneumonia. Chest x-ray showed opacity in bilateral lung bases interpreted as atelectasis versus pneumonia. Most likely her presentation is related to a CHF exacerbation. Was on 40 mg of IV Lasix. Also has CKD stage 3 will need to monitor renal function with diuresis. Creatinine stable. On empiric antibiotic for possible pneumonia with doxycycline and ceftriaxone now changed to oral route. VQ scan high probability but appears unchanged from 2019 to suggest persistent sequela fo chronic PE. She was on Eliquis on admission. There is a new oclusive appearing DVT in one of the paired right posterior tibila veins of the calf as well as chronic nonocclusive DVT in mid right femoral vein. DVT below the knee low likelihood to travel. She is on Eliquis but not therapeutic dose for DVT and she is seditary which probably explains her new DVT on Eliquis. Will discuss with hematolgy. AFib with RVR -- metoprolol and clonidine resumed and Metoprolol dose increased. Echo showing EF 55% with Grade I diastolic dysfunction CKD stage 3 Chronic ILD COPD Chronic respiratory failure with hypoxia on home oxygen therapy History of DVT Hypertension Hyperlipidemia History of PE Sleep apnea on oxygen at night does not use CPAP DVT prophylaxis on apixaban Code status full code Subjective Date/time seen: 11/20/23 19:21 Interval history: 83yo female with CKD, pAFib, COPD, ILD and chronic resp failure on home O2 here for SOB Assuming care.
[2023-11-20] MEDS: cloNIDine HCL 0.1 MG TABLET PO (20:46)
[2023-11-21] VITALS (14 sets, daily range): BP systolic 97–118; BP diastolic 42–67; PULSE 50–96; RESP 14–18; TEMP 36.1–36.5; O2SAT 87–100
[2023-11-21 06:18] LABS: Basophils Percent Auto 0.7 % (0.2-1.2); Eosinophils Absolute Auto 0.3 K/mm3 (0-0.3); Eosinophils Percent Auto 5.9 % (0-4.4); Hemoglobin 9.4 g/dL (12.0-15.0); Immature Granulocyte Absolute 0.01 K/mm3 (0.00-0.031); Immature Granulocyte Percent A 0.2 % (0-0.5); Lymphocytes Percent Auto 18.8 % (18.3-44.2); Mean Corpuscular HGB Conc 28.5 g/dl (32-36); Mean Corpuscular Hemoglobin 29.3 pg (26-34); Mean Corpuscular Volume 102.8 fl (80-100); Mean Platelet Volume 11.5 fl (7.4-10.4); Monocytes Absolute Auto 0.8 K/mm3 (0.1-0.6); Monocytes Percent Auto 18.6 % (2.6-8.5); Neutrophils Absolute Auto 2.4 K/mm3 (1.3-6.7); Neutrophils Percent Auto 55.8 % (45.5-73.1); Platelet Count Result 186 k/mm3 (150-375); Red Blood Count 3.21 M/mm3 (4.2-5.4); Red Cell Distribution Width 13.9 % (11.5-14.5); White Blood Count 4.3 K/mm3 (4.5-10.0)
[2023-11-21 06:40] LABS: Anion Gap 2 mmol/L (4-12); Blood Urea Nitrogen 49 mg/dL (7-17); Calcium 9.4 mg/dL (8.4-10.2); Carbon Dioxide 38 mmol/L (22-30); Chloride 98 mmol/L (98-107); Estimated CRCL calculation 21 ml/min; Estimated Glomerular Filt Rate 25; Glucose 101 mg/dL (65-110); Potassium 4.8 mmol/L (3.4-5.0); Sodium 138 mmol/L (137-145)
[2023-11-21 08:06] LABS: Platelet Estimate Adequate (Adequate)
[2023-11-21 08:07] LABS: Anisocytosis 1+; Hypochromasia 1+; Schistocytes None Seen
[2023-11-21 08:08] LABS: Stomatocytes 1+
[2023-11-21] MEDS: EMPAGLIFLOZIN 10 MG TABLET BY MOUTH (08:39)
[2023-11-21] MEDS: DOXYCYCLINE HYCLATE 100 MG TABLET PO (08:39)
[2023-11-21] MEDS: FUROSEMIDE 40 MG TABLET PO (08:39)
[2023-11-21] MEDS: PANTOPRAZOLE 40 MG TABLET PO (08:39)
[2023-11-21] MEDS: ROSUVASTATIN 10 MG TABLET 20 MG PO (08:40)
[2023-11-21] MEDS: POTASSIUM CHLORIDE 20 MEQ ER TABLET PO (08:40)
[2023-11-21] MEDS: CEFDINIR 300 MG CAPSULE PO (08:40)
[2023-11-21] MEDS: APIXABAN 2.5 MG TABLET PO (08:40)
[2023-11-21] MEDS: METOPROLOL TARTRATE 50 MG TAB PO (09:22)
--- NOTE | 2023-11-21 14:47 | HOMEO2EVAL ---
Evaluation was performed at [facility] Home Oxygen Evaluation RC: Home Oxygen (O2) Evaluation Start: 11/21/23 10:20 Freq: ONCE Status: Active Protocol: RPE Activity Type Activity Date Activity User E-sign Co-sign Detail Recorded Client Recorded Date Recorded By Document 11/21/23 13:45 BELKIS [email or web address] 11/21/23 14:47 BELKIS Document 11/21/23 13:46 BELKIS [email or web address] 11/21/23 14:47 BELKIS Document 11/21/23 13:47 BELKIS [email or web address] 11/21/23 14:47 BELKIS Document 11/21/23 13:50 BELKIS [email or web address] 11/21/23 14:47 BELKIS Document 11/21/23 14:00 BELKIS [email or web address] 11/21/23 14:47 BELKIS 11/21/23 11/21/23 11/21/23 13:45 13:46 13:47 Home O2 Evaluation [Oxygen] -Test Phase Resting Resting Resting -Oxygen Delivery Room Air Nasal Cannula Nasal Cannula -Oxygen Flow Rate (L/min) 2 2.5 [Pulse Oximetry] -Pulse Oximetry (90-100 %) 87 L 90 94 [Comments] -Home Oxygen Evaluation Comments [Charges] -Evaluation Charges O2 Evaluation by Pulmonary 11/21/23 11/21/23 13:50 14:00 Home O2 Evaluation [Oxygen] -Test Phase Exercise Resting -Oxygen Delivery Nasal Cannula Nasal Cannula -Oxygen Flow Rate (L/min) 2.5 2.5 [Pulse Oximetry] -Pulse Oximetry (90-100 %) 93 94 [Comments] -Home Oxygen Evaluation Comments Pt requires 2-2 .5 L with rest and activity. Pt has [facility] Home O2 No changes to current Home o2 settings [Charges] -Evaluation Charges
--- NOTE | 2023-11-21 14:47 | PCRCNOTE ---
Home O2 eval done, [facility]. Pt wears 2-2.5 at rest and with activity. No changes to current home o2 settings. RN aware eval is done.
--- NOTE | 2023-11-21 14:51 | PM.DS ---
DS: Admitting Diagnosis Discharge Date 11/21/23 Admitting Diagnosis Shortness of breath DS: Discharge Diagnosis Discharge Diagnosis (1) Pneumonia: Qualifiers: Laterality: bilateral Lung location: lower lobe of lung Pneumonia type: due to unspecified organism Qualified Code(s): J18.9 - Pneumonia, unspecified organism Code(s): J18.9 - Pneumonia, unspecified organism Status: Acute (2) Acute dyspnea: Code(s): R06.00 - Dyspnea, unspecified Status: Acute (3) CHF exacerbation: Qualifiers: Heart failure type: unspecified Qualified Code(s): I50.9 - Heart failure, unspecified Code(s): I50.9 - Heart failure, unspecified Status: Acute (4) Elevated troponin: Code(s): R79.89 - Other specified abnormal findings of blood chemistry Status: Acute (5) Acute on chronic hypoxic respiratory failure: Code(s): J96.21 - Acute and chronic respiratory failure with hypoxia Status: Acute (6) Chronic interstitial lung disease: Code(s): J84.9 - Interstitial pulmonary disease, unspecified Status: Chronic (7) Gastroesophageal reflux disease: Code(s): K21.9 - Gastro-esophageal reflux disease without esophagitis Status: Acute (8) Paroxysmal atrial fibrillation: Code(s): I48.0 - Paroxysmal atrial fibrillation Status: Chronic (9) Chronic obstructive pulmonary disease (COPD): Qualifiers: COPD type: unspecified COPD Qualified Code(s): J44.9 - Chronic obstructive pulmonary disease, unspecified Code(s): J44.9 - Chronic obstructive pulmonary disease, unspecified Status: Chronic (10) Sleep apnea: Qualifiers: Sleep apnea type: unspecified type Qualified Code(s): G47.30 - Sleep apnea, unspecified Code(s): G47.30 - Sleep apnea, unspecified Status: Chronic (11) Deep venous thrombosis: Code(s): I82.409 - Acute embolism and thrombosis of unspecified deep veins of unspecified lower extremity Status: Acute DS: Summary Hospital Course Reason for hospitalization: 83yo female with CKD, pAFib, COPD, ILD and chronic resp failure on home O2 here for SOB. Please see H&P for details. Hospital Course: Patient presented with shortness of breath for past several days. She was recently admitted for pneumonia treated with Rocephin and Azithromycin but not sent home with abx. She is on 2.5 L oxygen at home but uses this as needed at times. She was tachycardic won admission. Chest x-ray showed opacity in bilateral lung bases interpreted as atelectasis versus pneumonia. WBC was normal. Troponin 0.06. BNP 19.8K. Platelet 80K but normalized on repeat. Influenza RSV and COVID PCR was negative. ABG 7.43/40/83. EKG showed AFib with rapid ventricular rate (HR 119). Patient received a dose of Lasix and was started on antibiotic for possible recurrent pneumonia. Most likely her presentation is related to a CHF exacerbation and/or PNA. Was on 40 mg of IV Lasix. Also has CKD stage 3 and Creatinine remained stable. On empiric antibiotic for possible pneumonia with doxycycline and ceftriaxone and changed to oral route. VQ scan high probability but appears unchanged from 2019 to suggest persistent sequela fo chronic PE. She was on Eliquis on admission. There is a new occlusive appearing DVT in one of the paired right posterior tibial veins of the calf as well as chronic nonocclusive DVT in mid right femoral vein. DVT below the knee low likelihood to travel. She is on Eliquis but not therapeutic dose for DVT and she is sedentary which probably explains her new DVT on Eliquis. Discussed with hematology who recommended increasing her to Eliquis 5mg Q12hr and repeating doppler in 1-2 months. She has AFib with RVR on admisison. She was continued on metoprolol and clonidine resumed. Metoprolol dose increased. Echo showing EF 55% with Grade I diastolic dysfunction. She tolerated this well but BP became soft.
== END 2023-11-21 18:10 | disposition home health service (06) | DRG 291 ==
LOC: ANHED 20:53 → ANHIMU 21:25 → ANH3MEDSUR 11-17 20:08
PROVIDERS: Family Medicine; Internal Medicine; Admitting Provider Internal Medicine; Emergency Provider Preventive Medicine Aerospace Medicine; PCP Physician Assistant; Visit Provider Internal Medicine
DX: I13.0 Hypertensive heart and chronic kidney disease with heart failure and stage 1 through stage 4 chronic kidney disease, or unspecified chronic kidney disease (principal); I50.33 Acute on chronic diastolic (congestive) heart failure; J18.9 Pneumonia, unspecified organism; J96.21 Acute and chronic respiratory failure with hypoxia; J44.0 Chronic obstructive pulmonary disease with (acute) lower respiratory infection; J84.9 Interstitial pulmonary disease, unspecified; I82.441 Acute embolism and thrombosis of right tibial vein; I82.511 Chronic embolism and thrombosis of right femoral vein; N18.30 Chronic kidney disease, stage 3 unspecified; I48.0 Paroxysmal atrial fibrillation; I25.10 Atherosclerotic heart disease of native coronary artery without angina pectoris; E78.5 Hyperlipidemia, unspecified; K21.9 Gastro-esophageal reflux disease without esophagitis; M19.90 Unspecified osteoarthritis, unspecified site; G47.30 Sleep apnea, unspecified; F32.A Depression, unspecified; F41.9 Anxiety disorder, unspecified; Z20.822 Contact with and (suspected) exposure to COVID-19; Z96.651 Presence of right artificial knee joint; Z99.81 Dependence on supplemental oxygen; Z79.01 Long term (current) use of anticoagulants; Z86.73 Personal history of transient ischemic attack (TIA), and cerebral infarction without residual deficits; Z86.718 Personal history of other venous thrombosis and embolism; Z86.711 Personal history of pulmonary embolism; Z87.442 Personal history of urinary calculi; Z87.891 Personal history of nicotine dependence
CPT/HCPCS: 36415; 36600; 71045; 78582; 80048; 80053; 82805; 83735; 83880; 84484; 85025; 85055; 85610; 87040; 87637; 93005; 93306; 93971; 94618; 94640; 96365; 96367; 96375; 97110; 97161; 97165; 97530; 99285; A9270; A9540; A9558; G0378; J0692; J0696; J1940

== ENCOUNTER 2023-12-03 12:36 | Outpatient (CLI) | payer MEDICARE, MEDICAID, SELFPAY ==
--- NOTE | ~2023-12-03 | XR_ITS ---
EXAMINATION: XR chest 2V Exam Date/Time: 12/03/2023 12:50 CDT HISTORY: PNEUMONIA Comparison: 11/19/2023. RESULT: Lines, tubes, and devices: None. Lungs and pleura: Moderate diffuse reticular opacities likely representing senescent and possibly in terstitial changes. Myelomatous ossification. No focal consolidation, pleural effusion, or pneumothor ax. Cardiomediastinal silhouette: Stable. Calcified lymph nodes. Other: No acute osseous or upper abdominal finding. IMPRESSION: No acute cardiopulmonary process. Chronic interstitial lung disease. Reviewed, dictated and finalized at location K.
[2023-12-03 14:40] LABS: Basophils Percent Auto 0.6 % (0.2-1.2); Eosinophils Percent Auto 0.4 % (0-4.4); Hematocrit 33.5 % (37.0-47.0); Hemoglobin 9.9 g/dL (12.0-15.0); Immature Granulocyte Absolute 0.04 K/mm3 (0.00-0.031); Immature Granulocyte Percent A 0.6 % (0-0.5); Immature Platelet Fraction Pct 12.9 % (0.9-11.2); Lymphocytes Absolute Auto 0.69 K/mm3 (0.9-3.2); Lymphocytes Percent Auto 9.6 % (18.3-44.2); Mean Corpuscular HGB Conc 29.6 g/dl (32-36); Mean Corpuscular Hemoglobin 29.5 pg (26-34); Mean Corpuscular Volume 99.7 fl (80-100); Mean Platelet Volume 14.2 fl (7.4-10.4); Monocytes Absolute Auto 0.9 K/mm3 (0.1-0.6); Monocytes Percent Auto 13.1 % (2.6-8.5); Neutrophils Absolute Auto 5.5 K/mm3 (1.3-6.7); Neutrophils Percent Auto 75.7 % (45.5-73.1); Platelet Count Result 116 k/mm3 (150-375); Red Blood Count 3.36 M/mm3 (4.2-5.4); Red Cell Distribution Width 15.8 % (11.5-14.5); White Blood Count 7.2 K/mm3 (4.5-10.0)
[2023-12-03 14:53] LABS: Alanine Aminotransferase 42 U/L (6-35); Albumin Level 4.1 g/dL (3.5-5.1); Alkaline Phosphatase 84 U/L (38-126); Anion Gap 6 mmol/L (4-12); Aspartate Amino Transferase 55 U/L (14-36); Bilirubin,Total 0.8 mg/dL (0.2-1.3); Blood Urea Nitrogen 47 mg/dL (7-17); Carbon Dioxide 34 mmol/L (22-30); Chloride 100 mmol/L (98-107); Estimated Glomerular Filt Rate 27; Glucose 113 mg/dL (65-110); Potassium 4.5 mmol/L (3.4-5.0); Sodium 140 mmol/L (137-145)
[2023-12-03 15:02] LABS: Hypochromasia 1+; Platelet Estimate Adequate (Adequate); Schistocytes None Seen
[2023-12-03 15:50] LABS: Hemoglobin A1C 5.5 % (<5.7)
[2023-12-03 16:43] LABS: MALB Creatinine Ratio 280.8 mg/g (0-30); Microalbumin Urine Random 275.2 mg/L (0-16.7)
== END 2023-12-03 12:37 | disposition home or self-care (01) ==
PROVIDERS: PCP Physician Assistant; Visit Provider Physician Assistant
DX: J18.9 Pneumonia, unspecified organism (principal); N18.4 Chronic kidney disease, stage 4 (severe); R73.03 Prediabetes; R91.8 Other nonspecific abnormal finding of lung field
CPT/HCPCS: 36415; 71046; 80053; 82043; 83036; 83970; 85025; 85055

== ENCOUNTER 2023-12-27 14:37 | Emergency (ER) | payer MEDICARE, MEDICAID, SELFPAY ==
[2023-12-27] VITALS (11 sets, daily range): BP systolic 134–158; BP diastolic 81–97; PULSE 84–94; RESP 15–23; TEMP 36.7; O2SAT 97–100
--- NOTE | ~2023-12-27 | XR_ITS ---
EXAMINATION: XR chest 1V portable Exam Date/Time: 12/27/2023 15:30 CDT HISTORY: Dyspnea Comparison: 12/03/2023. RESULT: Lines, tubes, and devices: None. Lungs and pleura: Moderate diffuse reticular opacities. Subsegmental groundglass right basilar and c onsolidative left basilar opacities. Mild bilateral costophrenic angle blunting. Granulomatous calcif ication. Cardiomediastinal silhouette: Stable. Calcified lymph nodes. Other: No acute osseous or upper abdominal finding. IMPRESSION: Subsegmental bibasilar atelectasis/consolidation. Mild interstitial edema likely overlying chronic in terstitial change. Small bilateral pleural effusions. Reviewed, dictated and finalized at location K. IMPRESSION: Subsegmental bibasilar atelectasis/consolidation. Mild interstitial edema likel y overlying chronic interstitial change. Small bilateral pleural effusions.
[2023-12-27] MEDS: IPRATROPIUM 0.5 MG/ALBUTEROL SULFATE 2.5 MG AMPUL.NEB 3 ML INHALATION (15:10)
[2023-12-27 15:16] LABS: Basophils Percent Auto 0.5 % (0.2-1.2); Eosinophils Absolute Auto 0.1 K/mm3 (0-0.3); Eosinophils Percent Auto 1.2 % (0-4.4); Hematocrit 34.2 % (37.0-47.0); Hemoglobin 9.8 g/dL (12.0-15.0); Immature Granulocyte Absolute 0.03 K/mm3 (0.00-0.031); Immature Granulocyte Percent A 0.5 % (0-0.5); Immature Platelet Fraction Pct 13.8 % (0.9-11.2); Mean Corpuscular HGB Conc 28.7 g/dl (32-36); Mean Corpuscular Hemoglobin 28.8 pg (26-34); Mean Corpuscular Volume 100.6 fl (80-100); Mean Platelet Volume 13.6 fl (7.4-10.4); Monocytes Absolute Auto 0.9 K/mm3 (0.1-0.6); Monocytes Percent Auto 14.5 % (2.6-8.5); Neutrophils Absolute Auto 3.9 K/mm3 (1.3-6.7); Neutrophils Percent Auto 66.3 % (45.5-73.1); Platelet Count Result 126 k/mm3 (150-375); Red Cell Distribution Width 15.6 % (11.5-14.5); White Blood Count 5.9 K/mm3 (4.5-10.0)
[2023-12-27 15:38] LABS: Platelet Estimate Slightly Decreased (Adequate); Schistocytes None Seen; Stomatocytes 1+
[2023-12-27 15:51] LABS: Alanine Aminotransferase 21 U/L (6-35); Albumin Level 3.8 g/dL (3.5-5.1); Alkaline Phosphatase 69 U/L (38-126); Anion Gap 4 mmol/L (4-12); Aspartate Amino Transferase 43 U/L (14-36); Bilirubin,Total 0.5 mg/dL (0.2-1.3); Blood Urea Nitrogen 46 mg/dL (7-17); Calcium 9.4 mg/dL (8.4-10.2); Carbon Dioxide 36 mmol/L (22-30); Chloride 100 mmol/L (98-107); Estimated Glomerular Filt Rate 24; Glucose 115 mg/dL (65-110); Potassium 4.5 mmol/L (3.4-5.0); Sodium 140 mmol/L (137-145)
[2023-12-27 15:53] LABS: Influenza A QL RT-PCR Negative (Negative); Influenza B QL RT-PCR Negative (Negative); SARS-CoV-2 RNA PCR Negative (Negative)
[2023-12-27 16:02] LABS: NT Pro B Type Natriuretic Pept 15500 pg/mL (19.9-100); Troponin I 0.021 ng/mL (0.000-0.034)
[2023-12-27] MEDS: FUROSEMIDE INJ 40 MG/4 ML VIAL IV PUSH (16:27)
--- NOTE | 2023-12-27 16:32 | ED.SOB ---
HPI - SOB/Dyspnea General Chief Complaint: Shortness of Breath/Dyspnea Stated Complaint: SOB Time Seen by Provider: 12/27/23 14:48 History of Present Illness HPI Narrative: This is an 83-year-old female, with history of CHF and COPD on 2 L of O2 at baseline, brought in by EMS to the emergency department complaining of shortness of breath and worsening over the past 2 days. She states her bilateral legs have been swelling recently, though she denies chest pain. She has had nonproductive cough, though denies fevers, chills, vomiting or diarrhea. She has no other complaints at this time. Related Data Home Medications Medication Instructions Recorded Confirmed albuterol sulfate 90 mcg/actuation 2 inh inhalation QID PRN Shortness 10/22/23 12/24/23 aerosol inhaler Of Breath Or Wheezing dapagliflozin propanediol 5 mg 5 mg PO DAILY 10/22/23 12/24/23 tablet (Farxiga) ipratropium 0.5 mg-albuterol 3 mg 3 ml inhalation TID PRN Shortness 11/15/23 12/24/23 (2.5 mg base)/3 mL nebulization Of Breath Or Wheezing soln Allergies Allergy/AdvReac Type Severity Reaction Status Date / Time codeine Allergy Unknown Unknown Verified 12/24/23 13:21 Bsnfukn-FVP-BjI Reductase Allergy Unknown myalgias Verified 12/24/23 13:21 Inhibitor [Velwrgm-Ubr-Bou Reductase Inhibitor] Sulfa (Sulfonamide AdvReac Unknown Dizziness Verified 12/24/23 13:21 Antibiotics) Review of Systems Review of Systems: All systems reviewed & are unremarkable except as noted in HPI and below PMFSH Past Medical History Medical History Anemia Anxiety Arthritis Asthma Cerebrovascular accident Chronic interstitial lung disease Chest CT in October 2020 with appearance of mild chronic interstitial lung disease and mild bronchiectasis. Chronic obstructive pulmonary disease Chronic respiratory failure with hypoxia, on home oxygen therapy Coronary artery disease Depression Diastolic congestive heart failure Gastroesophageal reflux disease Hyperlipidemia Hypertension Kidney stones Paroxysmal atrial fibrillation Pulmonary embolism Sleep apnea On oxygen, does not use CPAP. Surgical History Surgical History History of appendectomy History of cataract extraction History of hysterectomy History of right knee joint replacement History of tonsillectomy Family History Family History Mother Hypertension Family history of primary malignant neoplasm of liver Carcinoma of colon Sibling Hypertension Asthma Family history of elevated blood lipids Cerebrovascular accident Family history of malignant neoplasm of breast in first degree relative Family history of chronic obstructive pulmonary disease Family history of congestive heart failure Father Family history of coronary artery disease Family history of heart disease in male family member before age 55 Hypertension Acute myocardial infarction Family history of congestive heart failure Other Family history of arthritis Social History Social History Social History: Surrogate medical decision maker: Yessica Kinney, daughter. Code status: Full code. Smoking packs per day: 1.5 Smoking cigarettes per day: 30.0 Years smoked: 35 Smoking pack-years: 52.50 Smoking status: Former smoker Tobacco type: cigarettes Second hand tobacco smoke exposure: No Alcohol intake: never Substance use: never Substance use type: does not use Do You Feel Safe in your Home?: Yes Lack of Transportation: No Lack of Food: Never True Current Housing: I Have Housing Concerned About Future Housing: No Difficulty Paying Gas/Electric Bills: No Difficulty Paying for Meds: No Currently Unemployed: No Education: High School Diploma/GED Difficulty w/
--- NOTE | 2023-12-27 17:10 | ECG_ITS ---
[facility] [address] Test Date: 2023-12-27 Pat Name: Anna Jones Department: Room: Gender: F Home Care Assistant: : 1940 Requested By: Mitch Huizar Order Number: [id number] Hayley MD: Adams Beltran D.O. Measurements Intervals [place] Rate: 88 P: 0 MI: 0 QRS: 24 QRSD: 81 T: -18 QT: 343 QTc: 416 Interpretive Statements ATRIAL FIBRILLATION BORDERLINE ST-T WAVE ABNORMALITY- INFERIOR LEADS BASELINE ARTIFACT- II, III, AVF ABNORMAL ECG No previous ECG available for comparison Electronically Signed On 12-27-2023 18:11:46 CDT by Adams Beltran D.O.
== END 2023-12-27 17:40 ==
PROVIDERS: Emergency Provider Preventive Medicine Aerospace Medicine; PCP Physician Assistant
DX: I11.0 Hypertensive heart disease with heart failure (principal); I50.30 Unspecified diastolic (congestive) heart failure; J81.0 Acute pulmonary edema; J96.11 Chronic respiratory failure with hypoxia; I25.10 Atherosclerotic heart disease of native coronary artery without angina pectoris; I48.0 Paroxysmal atrial fibrillation; E78.5 Hyperlipidemia, unspecified; G47.30 Sleep apnea, unspecified; J84.9 Interstitial pulmonary disease, unspecified; K21.9 Gastro-esophageal reflux disease without esophagitis; F41.9 Anxiety disorder, unspecified; F32.A Depression, unspecified; Z99.81 Dependence on supplemental oxygen; Z79.51 Long term (current) use of inhaled steroids; Z79.84 Long term (current) use of oral hypoglycemic drugs; Z86.711 Personal history of pulmonary embolism; Z87.891 Personal history of nicotine dependence; Z20.822 Contact with and (suspected) exposure to COVID-19
CPT/HCPCS: 36415; 71045; 80053; 83880; 84484; 85025; 85055; 87636; 93005; 94640; 96374; 99284; J1940

== ENCOUNTER 2024-01-03 11:15 | Inpatient (IN) | payer MEDICARE, MEDICAID, SELFPAY ==
[2024-01-03] VITALS (16 sets, daily range): BP systolic 105–165; BP diastolic 76–98; PULSE 62–104; RESP 12–25; TEMP 36.3–36.4; O2SAT 94–100; BMI 36.3
--- NOTE | ~2024-01-03 | CT_ITS ---
EXAMINATION: CT BRAIN W/O DATE: 01/05/2024 09:50 INDICATION: Altered mental status TECHNIQUE: Computed tomography (CT) of the head was performed without intravenous contrast. The dose- length product was 983.67 mGy-cm. Automated exposure control and iterative reconstruction technique w ere employed. COMPARISON: CT dated FINDINGS: Normal brain parenchymal volume for age. Normal castro-white differentiation. No acute intrac ranial hemorrhage, infarction, mass or mass effect. Calcified extra-axial mass anterior inferior aspe ct of the left frontal lobe measures 4.2 x 4 x 3.4 cm compared with 3.8 x 3.8 x 3.5 cm on prior exami nation. There is mild mass effect on the left lateral ventricle. Generalized atrophy. 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 There is midline shift to the right measuring 5-6 mm. No ventriculomegaly. Midline sagittal images demonstrate a normal corpus callosum, craniovertebral ju nction and sella turcica. Basilar cisterns are patent. Paranasal sinuses and mastoids are pneumatized. No depressed skull fractures. IMPRESSION: 1. Enlarging left frontal lobe extra-axial mass which is densely calcified, consistent with meningiom a. Moderate mass effect with midline shift to the right measuring 5-6 mm. There is mass effect on the left lateral ventricle anteriorly. 2: Chronic age-related findings. 3: Chronic bilateral lacunar infarctions. Reviewed, dictated and finalized at location B. IMPRESSION: 1. Enlarging left frontal lobe extra-axial mass which is densely calcified, con sistent with meningioma. Moderate mass effect with midline shift to the right m easuring 5-6 mm. There is mass effect on the left lateral ventricle anteriorly. 2: Chronic age-related findings. 3: Chronic bilateral lacunar infarctions.
--- NOTE | ~2024-01-03 | XR_ITS ---
Clinical Indication: Shortness of breath PA and lateral views of the chest: Comparison: 12/27/2023 Findings: Probable central congestive change and minimal bibasilar pulmonary edema. Probable minimal left pleural effusion. Calcified left basilar granuloma present. Cardiomediastinal silhouette is wit hin normal limits. Bones and soft tissues are unremarkable. Impression: Central congestive change and probable minimal pulmonary edema and minimal left pleural effusion. Reviewed, dictated and finalized at location . Impression: Central congestive change and probable minimal pulmonary edema and minimal left pleural effusion.
--- NOTE | ~2024-01-03 | XR_ITS ---
XR chest 1V portable 01/05/2024 09:14 Indication: Shortness of breath Procedure: AP portable chest Comparison: Comparison to multiple prior studies sequentially, with oldest reviewed study dated 11/18. Findings: Moderate cardiomegaly. Interstitial edema. Small pleural effusions. No pneumothorax. No acu te osseous abnormality. Impression: 1: Cardiomegaly with mild interstitial edema. Reviewed, dictated and finalized at location B. Impression: 1: Cardiomegaly with mild interstitial edema.
--- NOTE | ~2024-01-03 | US_ITS ---
EXAMINATION: US abdomen limited DATE: 01/03/2024 13:05 INDICATION: Right upper quadrant abdominal pain. TECHNIQUE: Multiple grayscale and Doppler ultrasound images of the abdomen were obtained. COMPARISON: Ultrasound 04/17/2021 FINDINGS: The pancreas is obscured by bowel gas. The liver is normal without focal lesion. There is a ntegrade flow in main portal vein. The gallbladder is normal in size. No gallstones. Gallbladder wall thickening is noted. There is a positive sonographic Burgess's sign. The common duct is normal and me asures 2 mm. IMPRESSION: 1. Gallbladder wall thickening and positive sonographic Burgess sign, but no gallstones or gallbladder distention to suggest acute cholecystitis. Reviewed, dictated and finalized at location A. IMPRESSION: 1. Gallbladder wall thickening and positive sonographic Burgess sign, but no gal lstones or gallbladder distention to suggest acute cholecystitis.
--- NOTE | ~2024-01-03 | CT_ITS ---
EXAMINATION: CT abdomen pelvis wo con DATE: 01/03/2024 14:05 INDICATION: Right-sided abdomen pain TECHNIQUE: Computed tomography (CT) of the abdomen and pelvis was performed without intravenous contr ast. The dose-length product was 1339.94 mGy-cm. Automated exposure control and iterative reconstruct ion technique were employed. COMPARISON: CT dated 01/30/2022. FINDINGS: Small pleural effusions with dependent atelectasis. Cardiomegaly. Calcified granulomas of t he liver and spleen. There is gallbladder wall thickening. There is a right renal cyst. No hydronephrosis. Nonobstructive bowel gas pattern. Mild diffuse subcut aneous edema. No free air or free fluid. Nonobstructive bowel gas pattern. Bladder is grossly unremar kable. IMPRESSION: 1. Gallbladder wall thickening. Consider cholecystitis in the appropriate clinical setting. Reviewed, dictated and finalized at location B. IMPRESSION: 1. Gallbladder wall thickening. Consider cholecystitis in the appropriate clini manju setting.
--- NOTE | 2024-01-03 11:53 | ED.ABDPAIN ---
HPI - Abdominal Pain General Chief Complaint: Abdominal Pain Stated Complaint: hernia, abd pain, SOB Time Seen by Provider: 01/03/24 11:53 History of Present Illness HPI narrative: Patient is an 83-year-old female with history of COPD, CHF here with abdominal pain. Patient states that her abdominal pain began 3-4 days ago and is located on the right upper side. She notes an associated with a decreased appetite, no nausea or vomiting, no diarrhea. She notes that the pain has been constant and worsening and last night got to the point where she was unable to sleep due to the pain. She did take a dose of Tylenol prior to arrival, believes this helped her pain. She does not think food has changed her pain this week. She does note some increased shortness of breath which she attributes to having some abdominal distension compressing on her lungs. She denies increased sputum production or chest pain. She denies fever chills. She contacted her home health program today and they recommended she come into the emergency department for evaluation. She is status post appendectomy, hysterectomy. Related Data Home Medications Medication Instructions Recorded Confirmed albuterol sulfate 90 mcg/actuation 2 inh inhalation QID PRN Shortness 10/22/23 01/03/24 aerosol inhaler Of Breath Or Wheezing dapagliflozin propanediol 5 mg 5 mg PO DAILY 10/22/23 01/03/24 tablet (Farxiga) ipratropium 0.5 mg-albuterol 3 mg 3 ml inhalation TID PRN Shortness 11/15/23 01/03/24 (2.5 mg base)/3 mL nebulization Of Breath Or Wheezing soln Allergies Allergy/AdvReac Type Severity Reaction Status Date / Time latex Allergy Severe Swelling Verified 01/03/24 17:55 codeine Allergy Unknown Nausea and Verified 01/03/24 17:55 Vomiting Qvtwruu-KYB-EbH Reductase Allergy Unknown myalgias Verified 01/03/24 17:55 Inhibitor [Gdvvjgd-Onp-Tcq Reductase Inhibitor] Sulfa (Sulfonamide AdvReac Unknown Dizziness Verified 01/03/24 17:55 Antibiotics) Review of Systems Review of Systems: All systems reviewed & are unremarkable except as noted in HPI and below PMFSH Past Medical History Medical History Anemia Anxiety Arthritis Asthma Cerebrovascular accident Chronic interstitial lung disease Chest CT in October 2020 with appearance of mild chronic interstitial lung disease and mild bronchiectasis. Chronic obstructive pulmonary disease Chronic respiratory failure with hypoxia, on home oxygen therapy Coronary artery disease Depression Diastolic congestive heart failure Gastroesophageal reflux disease Hyperlipidemia Hypertension Kidney stones Paroxysmal atrial fibrillation Pulmonary embolism Sleep apnea On oxygen, does not use CPAP. Surgical History Surgical History History of appendectomy History of cataract extraction History of hysterectomy History of right knee joint replacement History of tonsillectomy Family History Family History Mother Hypertension Family history of primary malignant neoplasm of liver Carcinoma of colon Sibling Hypertension Asthma Family history of elevated blood lipids Cerebrovascular accident Family history of malignant neoplasm of breast in first degree relative Family history of chronic obstructive pulmonary disease Family history of congestive heart failure Father Family history of coronary artery disease Family history of heart disease in male family member before age 55 Hypertension Acute myocardial infarction Family history of congestive heart failure Other Family history of arthritis Social History Social History Social History: Surrogate medical decision maker: Yessica High Nirmal, daughter. Code status: Full code. Smoking packs per day: 1.5 Smoking cigarette
--- NOTE | 2024-01-03 11:59 | ECG_ITS ---
[facility] [address] Test Date: 2024-01-03 Pat Name: Anna Jones Department: Room: Gender: F Paralegal Specialist: : 1940 Requested By: Tia Guardado Order Number: [id number] Hayley MD: Konstantin Petersen M.D. Measurements Intervals [place] Rate: 81 P: 0 LA: 0 QRS: 37 QRSD: 79 T: 82 QT: 355 QTc: 413 Interpretive Statements ATRIAL FIBRILLATION ABNORMAL RHYTHM ECG Compared to ECG 12/27/2023 17:17:05 No significant changes Electronically Signed On 01-04-2024 07:48:54 CDT by Konstantin Petersen M.D.
[2024-01-03 13:12] LABS: Basophils Percent Auto 0.8 % (0.2-1.2); Eosinophils Absolute Auto 0.1 K/mm3 (0-0.3); Eosinophils Percent Auto 2.3 % (0-4.4); Hematocrit 31.8 % (37.0-47.0); Hemoglobin 9.5 g/dL (12.0-15.0); Immature Granulocyte Absolute 0.01 K/mm3 (0.00-0.031); Immature Granulocyte Percent A 0.2 % (0-0.5); Lymphocytes Absolute Auto 0.87 K/mm3 (0.9-3.2); Lymphocytes Percent Auto 16.3 % (18.3-44.2); Mean Corpuscular HGB Conc 29.9 g/dl (32-36); Mean Platelet Volume 12.1 fl (7.4-10.4); Monocytes Absolute Auto 0.7 K/mm3 (0.1-0.6); Monocytes Percent Auto 12.6 % (2.6-8.5); Neutrophils Absolute Auto 3.6 K/mm3 (1.3-6.7); Neutrophils Percent Auto 67.8 % (45.5-73.1); Platelet Count Result 136 k/mm3 (150-375); Red Blood Count 3.28 M/mm3 (4.2-5.4); Red Cell Distribution Width 15.6 % (11.5-14.5); White Blood Count 5.3 K/mm3 (4.5-10.0)
[2024-01-03 13:23] LABS: INR 1.7
[2024-01-03 13:24] LABS: Lactic Acid Reflex 0.7 mmol/L (0.7-2.0); Magnesium 2.2 mg/dL (1.6-2.3); Partial Thromboplastin Time 33.3 Seconds (22.3-36.8)
[2024-01-03 13:25] LABS: Platelet Estimate Adequate (Adequate)
[2024-01-03 13:26] LABS: Hypochromasia 1+; Schistocytes None Seen
[2024-01-03 13:28] LABS: Alanine Aminotransferase 21 U/L (6-35); Albumin Level 3.9 g/dL (3.5-5.1); Alkaline Phosphatase 71 U/L (38-126); Anion Gap 4 mmol/L (4-12); Aspartate Amino Transferase 34 U/L (14-36); Bilirubin,Total 0.7 mg/dL (0.2-1.3); Blood Urea Nitrogen 59 mg/dL (7-17); CRP 1.1 mg/dL (<1.0); Calcium 8.9 mg/dL (8.4-10.2); Carbon Dioxide 37 mmol/L (22-30); Chloride 99 mmol/L (98-107); Estimated CRCL calculation 15 ml/min; Estimated Glomerular Filt Rate 17; Glucose 101 mg/dL (65-110); Lipase 167 U/L (23-300); Potassium 3.9 mmol/L (3.4-5.0); Sodium 140 mmol/L (137-145)
[2024-01-03 13:37] LABS: NT Pro B Type Natriuretic Pept 14100 pg/mL (19.9-100)
[2024-01-03] MEDS: IPRATROPIUM 0.5 MG/ALBUTEROL SULFATE 2.5 MG AMPUL.NEB 3 ML INHALATION (14:23)
[2024-01-03 14:36] LABS: Bacteria Urine None Seen /hpf; Need Manual Microscopic Reviewed; RBC Urine >100 /hpf (0-2); Squamous Epithelial Cell Urine Few /hpf (Few); WBC Urine 0-5 /hpf (0-3)
[2024-01-03 14:39] LABS: Appearance Urine Cloudy (Clear); Bilirubin Urine Negative (Negative); Blood Urine 3+ (Negative); Color Urine Orange (Yellow); Glucose Urine UA 3+ mg/dL (Negative); Ketones Urine Negative (Negative); Leukocyte Esterase Ur Trace LEU/UL (Negative); Nitrate Urine Negative (Negative); Protein Urine 2+ mg/dL (Negative); Specific Grav Ur 1.019 (1.001-1.035); pH Urine 5.5 (5.0-9.0)
[2024-01-03 14:40] LABS: Add Urine Microscopic? YES
[2024-01-03 14:55] LABS: Influenza A QL RT-PCR Negative (Negative); Influenza B QL RT-PCR Negative (Negative); RSV RNA, RT-PCR Negative (Negative); SARS-CoV-2 RNA PCR Negative (Negative)
--- NOTE | 2024-01-03 15:42 | PM.CNGS ---
Assessment and Plan Assessment and plan (1) Right upper quadrant abdominal pain: Code(s): R10.11 - Right upper quadrant pain Status: Acute Assessment and Plan: exam largely benign at this time, patient likely with symptoms secondary to cholecystitis, poor surgical candidate especially in the setting of CHF exacerbation, will need medical optimization prior to any surgical intervention, will recommend conservative management for now with low-fat diet, antibiotics (2) CHF exacerbation: Qualifiers: Heart failure type: unspecified Qualified Code(s): I50.9 - Heart failure, unspecified Code(s): I50.9 - Heart failure, unspecified Status: Acute Assessment and Plan: medical management for CHF exacerbation (3) Anticoagulation adequate with anticoagulant therapy: Code(s): Z79.01 - senior living (current) use of anticoagulants Status: Acute Assessment and Plan: okay to resume anticoagulation as there is no plans for acute surgical intervention at this point History of Present Illness Consult details Consult date: 01/03/24 Reason for consult: abdominal pain Requesting physician: Tia Guardado MD Narrative: The patient is an 83-year-old female with multiple medical issues including CHF, COPD presenting to the emergency department complaining of right upper quadrant abdominal pain. The patient reports the pain has been ongoing over the last week or so. The patient reports the pain and localized to the right upper quadrant. The patient reports this is decreased appetite, bloating. The patient denies any nausea or vomiting. The patient reports eating does not seem to exacerbate the pain. Workup in the ER reveals CHF exacerbation, UTI and the patient will be admitted to the medical service. Imaging does show gallbladder wall distention, however no gallstones or pericholecystic inflammation. Review of Systems Review of Systems: All systems reviewed & are unremarkable except as noted in HPI and below PMFSH Past Medical History Medical History Anemia Anxiety Arthritis Asthma Cerebrovascular accident Chronic interstitial lung disease Chest CT in October 2020 with appearance of mild chronic interstitial lung disease and mild bronchiectasis. Chronic obstructive pulmonary disease Chronic respiratory failure with hypoxia, on home oxygen therapy Coronary artery disease Depression Diastolic congestive heart failure Gastroesophageal reflux disease Hyperlipidemia Hypertension Kidney stones Paroxysmal atrial fibrillation Pulmonary embolism Sleep apnea On oxygen, does not use CPAP. Surgical History Surgical History History of appendectomy History of cataract extraction History of hysterectomy History of right knee joint replacement History of tonsillectomy Family History Family History Mother Hypertension Family history of primary malignant neoplasm of liver Carcinoma of colon Sibling Hypertension Asthma Family history of elevated blood lipids Cerebrovascular accident Family history of malignant neoplasm of breast in first degree relative Family history of chronic obstructive pulmonary disease Family history of congestive heart failure Father Family history of coronary artery disease Family history of heart disease in male family member before age 55 Hypertension Acute myocardial infarction Family history of congestive heart failure Other Family history of arthritis Social History Social History Social History: Surrogate medical decision maker: Yessica Kinney, daughter. Code status: Full code. Smoking packs per day: 1.5 Smoking cigarettes per day: 30.0 Years smoked: 35 Smoking pack-years: 52.50 Smoking status: Former smo
[2024-01-03] MEDS: FUROSEMIDE INJ 40 MG/4 ML VIAL IV PUSH (15:51)
--- NOTE | 2024-01-03 16:46 | PM.IMHP ---
H&P: HPI History of Present Illness Date/Time: 01/03/24 16:46 Chief Complaint: Abdominal Pain, Shortness of Breath Narrative: 83 y/o F presents here with abdominal pain and shortness of breath with PMH of anemia, CVA, chronic ILD, COPD, chronic respiratory failure with hypoxia on home O2, CAD, anxiety/depression, CHF, GERD, HLD, HTN, paroxysmal AFib, pulmonary embolism, and sleep apnea (on supplemental O2, does not use CPAP). The patient presents here from home via EMS for further evaluation of abdominal pain and worsening shortness of breath. She reports upper abdominal pain that is worse in the RUQ started on 12/31 in the evening while she was sleeping. She describes the pain sharp, achy, nonradiating, constant, and no aggravating/alleviating factors. The abdominal pain is accompanied by mild nausea and body aches. Denying fever, chills, or diarrhea. Also reporting chronic shortness of breath that worsens when the abdominal pain becomes more sever. She has a history of a chronic interstitial lung disease, COPD, and CHF. She reports compliance with her diuretics and inhalers. Initial VS at presentation: 97.6? F, HR 62, RR 18, 151/96, and 99% on RA. ED workup showed: No leukocytosis, hemoglobin 9.5, platelet count 136, INR 1.7, creatinine 2.7 and GFR 17, CO2 37, BNP 01485, and UA suspicious for UTI. Ultrasound of the abdomen showed gallbladder wall thickening and positive sonographic Burgess sign, no gallstones or gallbladder distension. CXR showed central congestive changes and probable minimal pulmonary edema and minimal left pleural effusion. CT of the abdomen pelvis showed gallbladder wall thickening. Review of Systems Review of Systems: All systems reviewed & are unremarkable except as noted in HPI and below [facility] Past Medical History Medical History Anemia Anxiety Arthritis Asthma Cerebrovascular accident Chronic interstitial lung disease Chest CT in October 2020 with appearance of mild chronic interstitial lung disease and mild bronchiectasis. Chronic obstructive pulmonary disease Chronic respiratory failure with hypoxia, on home oxygen therapy Coronary artery disease Depression Diastolic congestive heart failure Gastroesophageal reflux disease Hyperlipidemia Hypertension Kidney stones Paroxysmal atrial fibrillation Pulmonary embolism Sleep apnea On oxygen, does not use CPAP. Surgical History Surgical History History of appendectomy History of cataract extraction History of hysterectomy History of right knee joint replacement History of tonsillectomy Family History Family History Mother Hypertension Family history of primary malignant neoplasm of liver Carcinoma of colon Sibling Hypertension Asthma Family history of elevated blood lipids Cerebrovascular accident Family history of malignant neoplasm of breast in first degree relative Family history of chronic obstructive pulmonary disease Family history of congestive heart failure Father Family history of coronary artery disease Family history of heart disease in male family member before age 55 Hypertension Acute myocardial infarction Family history of congestive heart failure Other Family history of arthritis Social History Social History Social History: Surrogate medical decision maker: Yessica Kinney, daughter. Code status: Full code. Smoking packs per day: 1.5 Smoking cigarettes per day: 30.0 Years smoked: 35 Smoking pack-years: 52.50 Smoking status: Former smoker Second hand tobacco smoke exposure: No Alcohol intake: never Substance use: never Substance use type: does not use Do You Feel Safe in your Home?: Yes Lack of Transportation: No Lack of Food: Never True Curre
--- NOTE | 2024-01-03 17:47 | PC.NURSE ---
This RN ambulated into pts room and pt was complaining of pain in her groin area and was requesting the catheter to be removed. Upon assessment, this RN found the pts labias to be very swollen and red and pt was complaining of pain and a burning sensation in the vaginal area. This RN removed the catheter and updated SHERMAN Peguero on about the pts condition. Pt began to feel relief upon removal of the catheter.
--- NOTE | 2024-01-03 17:49 | ADMGEN ---
This patient, Anna Jones, was admitted to Medical Room 340-01. Patient/family oriented to hospital policies and general routines including ID bracelet, bed and alarms, visiting hours, pain management, procedures, bathroom and other care routines, personal items, smoking policy, room service/diet, and visiting hours. Information on how to activate the Rapid Response Team has been discussed. Patient/Family are encouraged to report perceived risks to care and to ask questions if they do not understand what they are told or what they should do.
[2024-01-03] MEDS: PIPERACILLIN/TAZ 2.25G/NS 50ML 2.25 GM/50 ML BAG IVPB (18:15)
--- NOTE | 2024-01-03 18:43 | PC.NURSE ---
Per patient, she does not want her daughter Zo to be allowed in her room. Check with nurse before entering sign placed at door and staff made aware.
[2024-01-04] VITALS (8 sets, daily range): BP systolic 104–125; BP diastolic 60–62; PULSE 72–107; RESP 18–20; TEMP 36.2–36.6; O2SAT 94–100
[2024-01-04] MEDS: PIPERACILLIN/TAZ 2.25G/NS 50ML 2.25 GM/50 ML BAG IVPB ×3 (02:46→20:09)
[2024-01-04] MEDS: APIXABAN 5 MG TABLET PO ×3 (02:46→20:09)
[2024-01-04] MEDS: ACETAMINOPHEN 500 MG TABLET 1000 MG PO ×2 (03:43→20:11)
[2024-01-04 05:48] LABS: Basophils Percent Auto 0.8 % (0.2-1.2); Eosinophils Absolute Auto 0.1 K/mm3 (0-0.3); Eosinophils Percent Auto 1.9 % (0-4.4); Hematocrit 29.9 % (37.0-47.0); Hemoglobin 8.8 g/dL (12.0-15.0); Immature Granulocyte Absolute 0.02 K/mm3 (0.00-0.031); Immature Granulocyte Percent A 0.4 % (0-0.5); Lymphocytes Absolute Auto 0.65 K/mm3 (0.9-3.2); Lymphocytes Percent Auto 13.6 % (18.3-44.2); Mean Corpuscular HGB Conc 29.4 g/dl (32-36); Mean Corpuscular Hemoglobin 29.2 pg (26-34); Mean Corpuscular Volume 99.3 fl (80-100); Mean Platelet Volume 12.5 fl (7.4-10.4); Monocytes Absolute Auto 0.7 K/mm3 (0.1-0.6); Monocytes Percent Auto 15.4 % (2.6-8.5); Neutrophils Absolute Auto 3.3 K/mm3 (1.3-6.7); Neutrophils Percent Auto 67.9 % (45.5-73.1); Platelet Count Result 110 k/mm3 (150-375); Red Blood Count 3.01 M/mm3 (4.2-5.4); Red Cell Distribution Width 15.4 % (11.5-14.5); White Blood Count 4.8 K/mm3 (4.5-10.0)
[2024-01-04 06:05] LABS: Alanine Aminotransferase 18 U/L (6-35); Albumin Level 3.4 g/dL (3.5-5.1); Alkaline Phosphatase 60 U/L (38-126); Anion Gap 5 mmol/L (4-12); Aspartate Amino Transferase 32 U/L (14-36); Bilirubin,Total 0.7 mg/dL (0.2-1.3); Blood Urea Nitrogen 54 mg/dL (7-17); Calcium 8.7 mg/dL (8.4-10.2); Carbon Dioxide 33 mmol/L (22-30); Chloride 101 mmol/L (98-107); Estimated CRCL calculation 15 ml/min; Estimated Glomerular Filt Rate 17; Glucose 82 mg/dL (65-110); Potassium 3.7 mmol/L (3.4-5.0); Sodium 139 mmol/L (137-145)
[2024-01-04 06:50] LABS: Anisocytosis 1+; Hypochromasia 1+; Platelet Estimate Adequate (Adequate); Schistocytes None Seen
[2024-01-04] MEDS: PANTOPRAZOLE 40 MG TABLET PO (08:52)
[2024-01-04] MEDS: METOPROLOL TARTRATE 50 MG TAB PO ×2 (08:52→20:09)
[2024-01-04] MEDS: ROSUVASTATIN 20 MG TABLET PO (08:52)
[2024-01-04] MEDS: FUROSEMIDE INJ 40 MG/4 ML VIAL IV PUSH (08:53)
[2024-01-04] MEDS: EMPAGLIFLOZIN 10 MG TABLET PO (08:53)
--- NOTE | 2024-01-04 10:10 | PM.PNGS ---
Progress Note: A&P Assessment and Plan (1) Cholecystitis: Code(s): K81.9 - Cholecystitis, unspecified Status: Acute Assessment and Plan: pain seems improved, will advance to low fat diet, cont conservative mgmt c abx Subjective Subjective Date/Time Seen: 01/04/24 10:10 Interval history: feels better, still c some mild RUQ pain Review of Systems Review of Systems: All systems reviewed & are unremarkable except as noted in HPI and below Exam Const: General: cooperative, comfortable, no acute distress and ill appearing Resp: Auscultation: diminished lung sounds Cardio: Rate: regular rate Rhythm: regular rhythm GI: Inspection: normal to inspection, Abdominal wall edema and distended GI Palp: Yes abdominal tenderness and Yes Soft to palpation Objective Data Vital Signs Vital Signs: Vital Signs - 24 hr 01/03/24 11:21 01/03/24 11:51 01/03/24 12:02 Temperature 36.4 C Pulse Rate 62 89 92 Respiratory Rate 18 18 16 Blood Pressure 151/96 H 148/95 H 140/92 H Pulse Oximetry 99 100 100 Oxygen Delivery Room Air Oxygen Flow Rate 01/03/24 12:57 01/03/24 13:01 01/03/24 14:24 Temperature Pulse Rate 84 88 91 Respiratory Rate 19 22 H 12 Blood Pressure 105/88 150/98 H Pulse Oximetry 99 99 Oxygen Delivery Oxygen Flow Rate 01/03/24 14:29 01/03/24 14:31 01/03/24 15:00 Temperature Pulse Rate 86 91 88 Respiratory Rate 23 H 20 19 Blood Pressure 151/93 H 165/92 H Pulse Oximetry 100 100 Oxygen Delivery Oxygen Flow Rate 01/03/24 15:30 01/03/24 16:00 01/03/24 16:30 Temperature Pulse Rate 92 104 H 94 Respiratory Rate 20 25 H 18 Blood Pressure 161/87 H 155/96 H 146/81 H Pulse Oximetry 100 100 100 Oxygen Delivery Oxygen Flow Rate 01/03/24 18:22 01/03/24 18:45 01/03/24 22:00 Temperature 36.3 C L 36.3 C L Pulse Rate 96 89 Respiratory Rate 18 20 Blood Pressure 152/93 H 131/76 Pulse Oximetry 100 100 100 Oxygen Delivery Nasal Cannula Oxygen Flow Rate 3 01/03/24 20:00 01/04/24 06:00 06/08/24 08:52 Temperature 36.6 C Pulse Rate 91 107 H Respiratory Rate 20 Blood Pressure 110/60 Pulse Oximetry 94 100 Oxygen Delivery Nasal Cannula Oxygen Flow Rate 3 01/04/24 09:42 Temperature Pulse Rate Respiratory Rate Blood Pressure Pulse Oximetry 98 Oxygen Delivery Nasal Cannula Oxygen Flow Rate 2.5 Intake/Output Intake/Output: Intake & Output 01/01/24 01/02/24 01/03/24 01/04/24 23:59 23:59 23:59 23:59 Intake Total 740 Output Total 500 750 Balance -500 -10 Meds/Results Medications: Active Medications Generic Name Dose Route Start Last Admin Trade Name Freq PRN Reason Stop Dose Admin Acetaminophen 1,000 mg 01/04/24 02:14 01/04/24 03:43 Acetaminophen 500 Mg Tablet PO 1,000 mg Q6H PRN Administration Mild Pain (1-3) or Fever Albuterol 2 puff 01/04/24 02:09 Albuterol Sulfate (*Sp) Aerosol 1 Puff INHALATION QIDRT PRN Shortness Of Breath Or Wheezin Albuterol/Ipratropium 3 ml 01/04/24 02:09 Ipratropium 0.5 Mg/Albuterol Sulfate 2.5 Mg Ampul.Neb 3 Ml INHALATION TID PRN Shortness Of Breath Or Wheezing Apixaban 5 mg 01/04/24 02:10 01/04/24 08:53 Apixaban 5 Mg Tablet PO 5 mg Q12HR KIMBERLY Administration Empagliflozin 10 mg 01/04/24 09:00 01/04/24 08:53 Empagliflozin 10 Mg Tablet PO 02/03/24 08:59 10 mg DAILY KIMBERLY Administration Furosemide 40 mg 01/04/24 09:00 01/04/24 08:53 Furosemide Inj 40 Mg/4 Ml Vial IV PUSH 40 mg DAILY KIMBERLY Administration Piperacillin Sod/Tazobactam Sod 2.25 gm in 50 mls @ 100 mls/hr 01/04/24 03:00 01/04/24 02:46 Zosyn 2.25 Gm/Ns 50 Ml IVPB 100 mls/hr Q8H KIMBERLY Administration Metoprolol Tartrate 50 mg 01/04/24 09:00 01/04/24 08:52 Metoprolol Tartrate 50 Mg Tab PO 50 mg Q12HR KIMBERLY Administration Pantoprazole Sodium 40 mg 01/04/24 09:00 01/04/24 08:52 Pantoprazole 40 Mg Tablet PO 4
--- NOTE | 2024-01-04 16:07 | WPDPN ---
Progress Note: A&P Assessment and Plan (1) Acute exacerbation of CHF (congestive heart failure): Qualifiers: Heart failure type: unspecified Qualified Code(s): I50.9 - Heart failure, unspecified Code(s): I50.9 - Heart failure, unspecified Status: Acute Assessment and Plan: Shortness of breath, multifactorial with history ILD, COPD and CHF patient is being diuresed, symptoms are improving, will monitor (2) Abdominal pain, RUQ: Code(s): R10.11 - Right upper quadrant pain Status: Acute Assessment and Plan: cholecystitis seen by surgery surgery unable to have surgery due to difficulty with breathing, patient is being diuresed, will monitor (3) LEROY (acute kidney injury): Code(s): N17.9 - Acute kidney failure, unspecified Status: Acute Assessment and Plan: most likely CKD, patient is being diuresed, will monitor kidney function. (4) Hypertension: Code(s): I10 - Essential (primary) hypertension Status: Chronic Assessment and Plan: upon arrival BP was elevated most likely 2/2 to pain and stress, BP is trending down. (5) Paroxysmal atrial fibrillation: Code(s): I48.0 - Paroxysmal atrial fibrillation Status: Chronic Assessment and Plan: rate is controlled and anticoagulated with Eliquis. Plan 83 y/o F presents here with abdominal pain and shortness of breath with PMH of anemia, CVA, chronic ILD, COPD, chronic respiratory failure with hypoxia on home O2, CAD, anxiety/depression, CHF, GERD, HLD, HTN, paroxysmal AFib, pulmonary embolism, and sleep apnea (on supplemental O2, does not use CPAP). The patient presents here from home via EMS for further evaluation of abdominal pain and worsening shortness of breath. She reports upper abdominal pain that is worse in the RUQ started on 6/5 in the evening while she was sleeping. She describes the pain sharp, achy, nonradiating, constant, and no aggravating/alleviating factors. The abdominal pain is accompanied by mild nausea and body aches. Denying fever, chills, or diarrhea. Also reporting chronic shortness of breath that worsens when the abdominal pain becomes more sever. She has a history of a chronic interstitial lung disease, COPD, and CHF. She reports compliance with her diuretics and inhalers. 01/04/2024 interval history: patient with cholecystitis and shortness of breath with history ILD, COPD and CHF, patient is seen by surgery service and unable to have cholecystectomy due to worsening short of breath, patient is being gently diuresed. will monitor and plan accordingly. Subjective Date/time seen: 01/04/24 16:07 Interval history: 83 y/o F presents here with abdominal pain and shortness of breath with PMH of anemia, CVA, chronic ILD, COPD, chronic respiratory failure with hypoxia on home O2, CAD, anxiety/depression, CHF, GERD, HLD, HTN, paroxysmal AFib, pulmonary embolism, and sleep apnea (on supplemental O2, does not use CPAP). The patient presents here from home via EMS for further evaluation of abdominal pain and worsening shortness of breath. She reports upper abdominal pain that is worse in the RUQ started on 12/31 in the evening while she was sleeping. She describes the pain sharp, achy, nonradiating, constant, and no aggravating/alleviating factors. The abdominal pain is accompanied by mild nausea and body aches. Denying fever, chills, or diarrhea. Also reporting chronic shortness of breath that worsens when the abdominal pain becomes more sever. She has a history of a chronic interstitial lung disease, COPD, and CHF. She reports compliance with her diuretics and inhalers. 01/04/2024 interval history: patient with cholecystitis and shortness of breath with history ILD, COPD and CHF, patient is seen by surgery service and unable to have cholecystectomy due to worsening short of breath, patient is being gently diuresed. will monitor and plan accordingly. Exam Na
[2024-01-05] VITALS (14 sets, daily range): BP systolic 103–110; BP diastolic 44–56; PULSE 62–94; RESP 16–20; TEMP 35.9–36.6; O2SAT 96–100
--- NOTE | 2024-01-05 02:38 | PC.NURSE ---
PATIENT CALLS OUT WITH C/O ABDOMINAL PAINS. NO AGGREVATING FACTORS, NO CHANGE IN ORIGINAL ASSESSMENT AND VITAL SIGNS REMAIN STABLE. EDUCATION ON SYMPTOMS, CARE AND TREATMENT FOR DIAGNOSIS. TYLENOL PROVIDED TO PATIENT, SHE STATES IT HELPS WITH THE PAIN. IF PAIN REMAINS UNRESOLVED AT REASSESSMENT, THIS NURSE WILL SEEK FURTHER RECOMMENDATION FROM PHYSICIAN.
[2024-01-05] MEDS: ACETAMINOPHEN 500 MG TABLET 1000 MG PO (02:57)
[2024-01-05] MEDS: PIPERACILLIN/TAZ 2.25G/NS 50ML 2.25 GM/50 ML BAG IVPB ×3 (03:00→18:28)
[2024-01-05 05:57] LABS: Hematocrit 30.7 % (37.0-47.0); Hemoglobin 8.8 g/dL (12.0-15.0); Mean Corpuscular HGB Conc 28.7 g/dl (32-36); Mean Corpuscular Hemoglobin 28.9 pg (26-34); Mean Corpuscular Volume 100.7 fl (80-100); Mean Platelet Volume 12.7 fl (7.4-10.4); Platelet Count Result 124 k/mm3 (150-375); Red Blood Count 3.05 M/mm3 (4.2-5.4); Red Cell Distribution Width 15.4 % (11.5-14.5); White Blood Count 5.3 K/mm3 (4.5-10.0)
[2024-01-05 06:11] LABS: Alanine Aminotransferase 17 U/L (6-35); Albumin Level 3.3 g/dL (3.5-5.1); Alkaline Phosphatase 56 U/L (38-126); Anion Gap 2 mmol/L (4-12); Aspartate Amino Transferase 30 U/L (14-36); Bilirubin,Total 0.5 mg/dL (0.2-1.3); Blood Urea Nitrogen 51 mg/dL (7-17); Calcium 8.7 mg/dL (8.4-10.2); Carbon Dioxide 38 mmol/L (22-30); Chloride 100 mmol/L (98-107); Estimated CRCL calculation 15 ml/min; Estimated Glomerular Filt Rate 17; Glucose 98 mg/dL (65-110); Magnesium 2.2 mg/dL (1.6-2.3); Potassium 3.9 mmol/L (3.4-5.0); Sodium 140 mmol/L (137-145)
[2024-01-05 09:12] LABS: Alveolar/Arterial O2 Gradient 27.9 mmHg; Base Excess ABG 6.5 mEq/l (+/-2.0); Fractional Inspired Oxygen 32 %; HCO3 ABG 34.2 mEq/l (22.0-26.0); Oxygen Content ABG 14.2 %vol (16.0-22.0); Oxyhemoglobin 98.1 % THb (90.0-100.0); PO2 ABG 120.8 mmHg (80.0-100.0); PO2 FiO2 Ratio Arterial Blood 3.78 %; Total Hemoglobin 10.1 g/dL (12.0-18.0)
[2024-01-05 09:14] LABS: Device NASAL CANNULA; Modified Allen's Test Pass; Site Drawn LEFT RADIAL
[2024-01-05 09:16] LABS: PCO2 ABG 67.9 mmHg (35.0-45.0)
[2024-01-05] MEDS: PANTOPRAZOLE 40 MG TABLET PO (10:21)
[2024-01-05] MEDS: APIXABAN 5 MG TABLET PO ×2 (10:21→21:42)
[2024-01-05] MEDS: METOPROLOL TARTRATE 50 MG TAB PO ×2 (10:21→21:34)
[2024-01-05] MEDS: ROSUVASTATIN 20 MG TABLET PO (10:22)
[2024-01-05] MEDS: FUROSEMIDE INJ 40 MG/4 ML VIAL IV PUSH (10:22)
[2024-01-05] MEDS: EMPAGLIFLOZIN 10 MG TABLET PO (10:22)
--- NOTE | 2024-01-05 13:02 | PM.PNGS ---
Progress Note: A&P Assessment and Plan (1) Cholecystitis: Code(s): K81.9 - Cholecystitis, unspecified Status: Acute Assessment and Plan: exam improved, cont conservative mgmt c low fat diet and abx (2) Acute exacerbation of CHF (congestive heart failure): Qualifiers: Heart failure type: unspecified Qualified Code(s): I50.9 - Heart failure, unspecified Code(s): I50.9 - Heart failure, unspecified Status: Acute Assessment and Plan: gentle diuresis per medical team, seems to be improving overall Subjective Subjective Date/Time Seen: 01/05/24 13:02 Interval history: feels better, carleen low fat diet Review of Systems Review of Systems: All systems reviewed & are unremarkable except as noted in HPI and below Exam Const: General: cooperative, comfortable, no acute distress and ill appearing Resp: Auscultation: clear to auscultation bilaterally Cardio: Rate: regular rate Rhythm: regular rhythm GI: Inspection: Abdominal wall edema and distended GI Palp: Yes abdominal tenderness, Yes Soft to palpation, Yes Tenderness to palpation present (GI), No Guarding due to palpation present (GI) and No Rigid due to palpation Objective Data Vital Signs Vital Signs: Vital Signs - 24 hr 01/04/24 14:00 01/04/24 20:09 01/04/24 20:00 Temperature 36.2 C L Pulse Rate 97 72 Respiratory Rate 18 Blood Pressure 104/62 Pulse Oximetry 100 100 Oxygen Delivery Nasal Cannula Oxygen Flow Rate 2.5 Fraction of Inspired Oxygen 01/04/24 21:17 01/05/24 06:00 01/05/24 09:08 Temperature 36.6 C 36.2 C L Pulse Rate 95 65 Respiratory Rate 20 20 Blood Pressure 125/62 103/54 L Pulse Oximetry 98 99 100 Oxygen Delivery Nasal Cannula Oxygen Flow Rate 3 Fraction of Inspired Oxygen 32 01/05/24 10:21 Temperature Pulse Rate 68 Respiratory Rate Blood Pressure Pulse Oximetry Oxygen Delivery Oxygen Flow Rate Fraction of Inspired Oxygen Intake/Output Intake/Output: Intake & Output 01/02/24 01/03/24 01/04/24 01/05/24 23:59 23:59 23:59 23:59 Intake Total 1520 1130 Output Total 500 6310 1650 Balance -500 -772 -012 Meds/Results Medications: Active Medications Generic Name Dose Route Start Last Admin Trade Name Freq PRN Reason Stop Dose Admin Acetaminophen 1,000 mg 01/04/24 02:14 01/05/24 02:57 Acetaminophen 500 Mg Tablet PO 1,000 mg Q6H PRN Administration Mild Pain (1-3) or Fever Albuterol 2 puff 01/04/24 02:09 Albuterol Sulfate (*Sp) Aerosol 1 Puff INHALATION QIDRT PRN Shortness Of Breath Or Wheezin Albuterol/Ipratropium 3 ml 01/04/24 02:09 Ipratropium 0.5 Mg/Albuterol Sulfate 2.5 Mg Ampul.Neb 3 Ml INHALATION TID PRN Shortness Of Breath Or Wheezing Apixaban 5 mg 01/04/24 02:10 01/05/24 10:21 Apixaban 5 Mg Tablet PO 5 mg Q12HR KIMBERLY Administration Empagliflozin 10 mg 01/04/24 09:00 01/05/24 10:22 Empagliflozin 10 Mg Tablet PO 02/03/24 08:59 10 mg DAILY KIMBERLY Administration Furosemide 40 mg 01/04/24 09:00 01/05/24 10:22 Furosemide Inj 40 Mg/4 Ml Vial IV PUSH 40 mg DAILY KIMBERLY Administration Piperacillin Sod/Tazobactam Sod 2.25 gm in 50 mls @ 100 mls/hr 01/04/24 03:00 01/05/24 10:31 Zosyn 2.25 Gm/Ns 50 Ml IVPB 100 mls/hr Q8H KIMBERLY Administration Metoprolol Tartrate 50 mg 01/04/24 09:00 01/05/24 10:21 Metoprolol Tartrate 50 Mg Tab PO 50 mg Q12HR KIMBERYL Administration Pantoprazole Sodium 40 mg 01/04/24 09:00 01/05/24 10:21 Pantoprazole 40 Mg Tablet PO 40 mg QAM KIMBERLY Administration Rosuvastatin Calcium 20 mg 01/04/24 09:00 01/05/24 10:22 Rosuvastatin 20 Mg Tablet PO 20 mg DAILY KIMBERLY Administration Radiology Results: ITS Impressions Abdomen Ultrasound 01/03/24 13:08 IMPRESSION: 1. Gallbladder wall thickening and positive sonographic Burgess sign, but no gallstones or gallbladder distention to suggest acute cholecystit
--- NOTE | 2024-01-05 14:38 | WPDPN ---
Progress Note: A&P Assessment and Plan (1) Abdominal pain, RUQ: Code(s): R10.11 - Right upper quadrant pain Status: Acute (2) Acute exacerbation of CHF (congestive heart failure): Qualifiers: Heart failure type: unspecified Qualified Code(s): I50.9 - Heart failure, unspecified Code(s): I50.9 - Heart failure, unspecified Status: Acute (3) LEROY (acute kidney injury): Code(s): N17.9 - Acute kidney failure, unspecified Status: Acute (4) Hypertension: Code(s): I10 - Essential (primary) hypertension Status: Chronic (5) Paroxysmal atrial fibrillation: Code(s): I48.0 - Paroxysmal atrial fibrillation Status: Chronic Plan 83 y/o F presents here with abdominal pain and shortness of breath with PMH of anemia, CVA, chronic ILD, COPD, chronic respiratory failure with hypoxia on home O2, CAD, anxiety/depression, CHF, GERD, HLD, HTN, paroxysmal AFib, pulmonary embolism, and sleep apnea (on supplemental O2, does not use CPAP). The patient presents here from home via EMS for further evaluation of abdominal pain and worsening shortness of breath. She reports upper abdominal pain that is worse in the RUQ started on 12/31 in the evening while she was sleeping. She describes the pain sharp, achy, nonradiating, constant, and no aggravating/alleviating factors. The abdominal pain is accompanied by mild nausea and body aches. Denying fever, chills, or diarrhea. Also reporting chronic shortness of breath that worsens when the abdominal pain becomes more sever. She has a history of a chronic interstitial lung disease, COPD, and CHF. She reports compliance with her diuretics and inhalers. 01/04/2024: interval history: patient with cholecystitis and shortness of breath with history ILD, COPD and CHF, patient is seen by surgery service and unable to have cholecystectomy due to worsening short of breath, patient is being gently diuresed. will monitor and plan accordingly. 01/05/2024 interval history: this morning patient was somnolent and not her baseline thinking patient was not awake, later nursing staff notice patient is not her baseline and to further evaluate patient had ABG, showed increased pCo2 which may have caused somnolent, chest x-ray and CT of head are negative for any acute changes. I went back checked her and she was back to her baseline. today patient was seen by her surgeon recommended continue conservative management with low fat diet and abx, will monitor. 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 Subjective Date/time seen: 01/05/24 14:38 Interval history: 83 y/o F presents here with abdominal pain and shortness of breath with PMH of anemia, CVA, chronic ILD, COPD, chronic respiratory failure with hypoxia on home O2, CAD, anxiety/depression, CHF, GERD, HLD, HTN, paroxysmal AFib, pulmonary embolism, and sleep apnea (on supplemental O2, does not use CPAP). The patient presents here from home via EMS for further evaluation of abdominal pain and worsening shortness of breath. She reports upper abdominal pain that is worse in the RUQ started on 12/31 in the evening while she was sleeping. She describes the pain sharp, achy, nonradiating, constant, and no aggravating/alleviating factors. The abdominal pain is accompanied by mild nausea and body aches. Denying fever, chills, or diarrhea. Also reporting chronic shortness of breath that worsens when the abdominal pain becomes more sever. She has a history of a chronic interstitial lung disease, COPD, and CHF. She reports compliance with her diuretics and inhalers. 01/04/2024: interval history: patient with cholecystitis and shortness of breath with history ILD, COPD and CHF, patient is seen by surgery service and unable to have cholecystectomy due to worsening short of breath, patient is being gently diuresed. will monitor and plan accordingly. 01/05/2024 interval his
[2024-01-05 15:34] LABS: Alveolar/Arterial O2 Gradient 53.2 mmHg; Base Excess ABG 9.9 mEq/l (+/-2.0); Fractional Inspired Oxygen 28 %; Oxyhemoglobin 88.8 % THb (90.0-100.0); PO2 FiO2 Ratio Arterial Blood 2.11 %; Total Hemoglobin 10.4 g/dL (12.0-18.0); pH ABG 7.328 (7.350-7.450)
[2024-01-05 15:35] LABS: PCO2 ABG 74.1 mmHg (35.0-45.0)
[2024-01-05 15:36] LABS: Modified Allen's Test Pass; Oxygen Saturation ABG 87.4 % (95.0-100.0); Site Drawn RIGHT RADIAL
[2024-01-05 15:37] LABS: Device ROOM AIR
[2024-01-05 18:28] LABS: Alveolar/Arterial O2 Gradient 45.7 mmHg; Base Excess ABG 12.3 mEq/l (+/-2.0); Fractional Inspired Oxygen 30 %; HCO3 ABG 39.9 mEq/l (22.0-26.0); Oxygen Content ABG 14.1 %vol (16.0-22.0); Oxygen Saturation ABG 95.7 % (95.0-100.0); Oxyhemoglobin 95.5 % THb (90.0-100.0); PO2 FiO2 Ratio Arterial Blood 2.83 %; Total Hemoglobin 10.4 g/dL (12.0-18.0); pH ABG 7.369 (7.350-7.450)
[2024-01-05 18:29] LABS: Device NON-INVASIVE VENT; Modified Allen's Test Pass; Non-Invasive Expiratory Pressure 6 CMH2O; Non-Invasive Inspiratory Pressure 12 CMH2O; Non-Invasive Vent Rate 12 /MIN; PCO2 ABG 70.8 mmHg (35.0-45.0); Site Drawn RIGHT RADIAL
[2024-01-06] VITALS (20 sets, daily range): BP systolic 117–135; BP diastolic 64–89; PULSE 62–114; RESP 15–20; TEMP 36.3–36.8; O2SAT 91–100
[2024-01-06] MEDS: ACETAMINOPHEN 500 MG TABLET 1000 MG PO ×2 (00:11→23:05)
[2024-01-06] MEDS: PIPERACILLIN/TAZ 2.25G/NS 50ML 2.25 GM/50 ML BAG IVPB ×3 (02:57→20:36)
[2024-01-06] MEDS: MORPHINE SULFATE (*CRX) 4 MG/ML INJ IV PUSH (03:28)
[2024-01-06 05:55] LABS: Hematocrit 30.8 % (37.0-47.0); Hemoglobin 8.8 g/dL (12.0-15.0); Immature Platelet Fraction Pct 8.5 % (0.9-11.2); Mean Corpuscular HGB Conc 28.6 g/dl (32-36); Mean Corpuscular Hemoglobin 28.9 pg (26-34); Mean Corpuscular Volume 101.3 fl (80-100); Mean Platelet Volume 11.5 fl (7.4-10.4); Platelet Count Result 118 k/mm3 (150-375); Red Blood Count 3.04 M/mm3 (4.2-5.4); Red Cell Distribution Width 15.3 % (11.5-14.5)
[2024-01-06 06:10] LABS: Alanine Aminotransferase 14 U/L (6-35); Albumin Level 3.2 g/dL (3.5-5.1); Alkaline Phosphatase 50 U/L (38-126); Aspartate Amino Transferase 25 U/L (14-36); Bilirubin,Total 0.5 mg/dL (0.2-1.3); Blood Urea Nitrogen 47 mg/dL (7-17); Calcium 8.4 mg/dL (8.4-10.2); Carbon Dioxide > 40 mmol/L (22-30); Chloride 99 mmol/L (98-107); Estimated CRCL calculation 15 ml/min; Estimated Glomerular Filt Rate 17; Glucose 105 mg/dL (65-110); Magnesium 2.2 mg/dL (1.6-2.3); Potassium 3.8 mmol/L (3.4-5.0); Sodium 140 mmol/L (137-145)
[2024-01-06] MEDS: APIXABAN 5 MG TABLET PO ×2 (09:08→20:36)
[2024-01-06] MEDS: EMPAGLIFLOZIN 10 MG TABLET PO (09:08)
[2024-01-06] MEDS: METOPROLOL TARTRATE 50 MG TAB PO ×2 (09:08→20:36)
[2024-01-06] MEDS: PANTOPRAZOLE 40 MG TABLET PO (09:08)
[2024-01-06] MEDS: FUROSEMIDE INJ 40 MG/4 ML VIAL IV PUSH (09:08)
[2024-01-06] MEDS: ROSUVASTATIN 20 MG TABLET PO (09:11)
--- NOTE | 2024-01-06 10:02 | PM.PNGS ---
Progress Note: A&P Assessment and Plan (1) Cholecystitis: Code(s): K81.9 - Cholecystitis, unspecified Status: Acute Assessment and Plan: Improving with conservative management. WBC and LFTs normal. Patient is a poor surgical candidate. Continue antibiotics and low fat diet. (2) Acute exacerbation of CHF (congestive heart failure): Qualifiers: Heart failure type: unspecified Qualified Code(s): I50.9 - Heart failure, unspecified Code(s): I50.9 - Heart failure, unspecified Status: Acute Assessment and Plan: Management per primary service. (3) Left frontal lobe mass: Code(s): G93.89 - Other specified disorders of brain Status: Acute Assessment and Plan: Discussed with Hospitalist. Patient with more confusion yesterday and high CO2 on ABG, requiring BiPAP. CT head showed enlarging left frontal lobe mass with moderate mass effect with midline shift. Hospitalist going to discuss with daughter. Plan I have discussed the patient's case and plan of care with Dr. Loaiza. Subjective Subjective Date/Time Seen: 01/06/24 10:02 Patient reports: no new complaints, tolerating a regular diet (low fat) and afebrile Interval history: This is an 83-year-old woman with multiple medical problems who was admitted for acute CHF exacerbation, LEROY, and possible cholecystitis with right upper quadrant abdominal pain. Chart reviewed. She is on IV antibiotics and tolerating a low-fat diet. She reports some right upper quadrant abdominal pain overnight, but this has improved this morning. She is eating breakfast at this time. No nausea or vomiting. She reports overall improvement in her right upper quadrant abdominal pain since admission. Exam Const: General: comfortable and no acute distress Orientation/consciousness: oriented to person and oriented to place GI: Inspection: non-distended GI Palp: Yes Soft to palpation, Yes Tenderness to palpation present (GI) (mild RUQ TTP), No Guarding due to palpation present (GI) and No Rebound tenderness present Auscultation: normal bowel sounds Objective Data Vital Signs Vital Signs: Vital Signs - 24 hr 01/05/24 10:21 01/05/24 10:20 01/05/24 14:00 Temperature 96.6 F L Pulse Rate 68 81 Respiratory Rate 19 Blood Pressure 110/44 L Pulse Oximetry 98 100 Oxygen Delivery Nasal Cannula Oxygen Flow Rate 2 Fraction of Inspired Oxygen 01/05/24 14:08 01/05/24 16:17 01/05/24 12:00 Temperature Pulse Rate 87 94 Respiratory Rate 16 Blood Pressure Pulse Oximetry 97 Oxygen Delivery Nasal Cannula BiPAP Oxygen Flow Rate 3 Fraction of Inspired Oxygen 01/05/24 16:00 01/05/24 18:15 01/05/24 18:40 Temperature Pulse Rate 77 Respiratory Rate 19 Blood Pressure Pulse Oximetry 96 97 Oxygen Delivery BiPAP Nasal Cannula Oxygen Flow Rate 2 Fraction of Inspired Oxygen 28 01/05/24 20:00 01/05/24 20:00 01/05/24 21:34 Temperature Pulse Rate 83 62 Respiratory Rate Blood Pressure Pulse Oximetry 96 Oxygen Delivery Nasal Cannula Oxygen Flow Rate 2 Fraction of Inspired Oxygen 01/05/24 22:52 01/06/24 00:00 01/05/24 22:00 Temperature 97.9 F Pulse Rate 94 114 H 86 Respiratory Rate 16 Blood Pressure 107/56 L Pulse Oximetry 96 97 Oxygen Delivery Nasal Cannula Oxygen Flow Rate 2.5 Fraction of Inspired Oxygen 01/06/24 04:00 01/06/24 06:00 01/06/24 09:08 Temperature 97.5 F L Pulse Rate 73 62 68 Respiratory Rate 20 Blood Pressure 117/64 Pulse Oximetry 98 Oxygen Delivery Oxygen Flow Rate Fraction of Inspired Oxygen Intake/Output Intake/Output: Intake & Output 01/03/24 01/04/24 01/05/24 01/06/24 23:59 23:59 23:59 23:59 Intake Total 1520 1830 550 Output Total 500 1750 2500 1700 Fxjxyqk -500 -230 -670 -1150 Meds/Results Medications: Active Medications Generic Name Dose Route Start Last Admin Trade Name Freq PRN Re
--- NOTE | 2024-01-06 10:12 | PM.PNGS ---
Progress Note: A&P Assessment and Plan (1) Cholecystitis: Code(s): K81.9 - Cholecystitis, unspecified Status: Acute Assessment and Plan: carleen diet, labs normal, cont low fat diet, no acute surgical issues at this point, ok to dc from surgical standpoint on low fat diet and f/u 2 wks once medically stable Subjective Subjective Date/Time Seen: 01/06/24 10:12 Interval history: still c some mild RUQ abd pain, carleen low fat diet Review of Systems Review of Systems: All systems reviewed & are unremarkable except as noted in HPI and below Exam Const: General: cooperative, comfortable, no acute distress and ill appearing Resp: Auscultation: diminished lung sounds Cardio: Rate: regular rate Rhythm: regular rhythm GI: Inspection: normal to inspection and non-distended GI Palp: Yes abdominal tenderness and Yes Soft to palpation Objective Data Vital Signs Vital Signs: Vital Signs - 24 hr 01/05/24 10:21 01/05/24 10:20 01/05/24 14:00 Temperature 35.9 C L Pulse Rate 68 81 Respiratory Rate 19 Blood Pressure 110/44 L Pulse Oximetry 98 100 Oxygen Delivery Nasal Cannula Oxygen Flow Rate 2 Fraction of Inspired Oxygen 01/05/24 14:08 01/05/24 16:17 01/05/24 12:00 Temperature Pulse Rate 87 94 Respiratory Rate 16 Blood Pressure Pulse Oximetry 97 Oxygen Delivery Nasal Cannula BiPAP Oxygen Flow Rate 3 Fraction of Inspired Oxygen 01/05/24 16:00 01/05/24 18:15 01/05/24 18:40 Temperature Pulse Rate 77 Respiratory Rate 19 Blood Pressure Pulse Oximetry 96 97 Oxygen Delivery BiPAP Nasal Cannula Oxygen Flow Rate 2 Fraction of Inspired Oxygen 28 01/05/24 20:00 01/05/24 20:00 01/05/24 21:34 Temperature Pulse Rate 83 62 Respiratory Rate Blood Pressure Pulse Oximetry 96 Oxygen Delivery Nasal Cannula Oxygen Flow Rate 2 Fraction of Inspired Oxygen 01/05/24 22:52 01/06/24 00:00 01/05/24 22:00 Temperature 36.6 C Pulse Rate 94 114 H 86 Respiratory Rate 16 Blood Pressure 107/56 L Pulse Oximetry 96 97 Oxygen Delivery Nasal Cannula Oxygen Flow Rate 2.5 Fraction of Inspired Oxygen 01/06/24 04:00 01/06/24 06:00 01/06/24 09:08 Temperature 36.4 C L Pulse Rate 73 62 68 Respiratory Rate 20 Blood Pressure 117/64 Pulse Oximetry 98 Oxygen Delivery Oxygen Flow Rate Fraction of Inspired Oxygen 01/06/24 10:10 Temperature Pulse Rate 83 Respiratory Rate Blood Pressure 135/67 Pulse Oximetry 100 Oxygen Delivery Oxygen Flow Rate Fraction of Inspired Oxygen Intake/Output Intake/Output: Intake & Output 01/03/24 01/04/24 01/05/24 01/06/24 23:59 23:59 23:59 23:59 Intake Total 1520 1830 790 Output Total 500 1750 2500 1700 [facility] -500 -230 -670 -910 Meds/Results Medications: Active Medications Generic Name Dose Route Start Last Admin Trade Name Freq PRN Reason Stop Dose Admin Acetaminophen 1,000 mg 01/04/24 02:14 01/06/24 00:11 Acetaminophen 500 Mg Tablet PO 1,000 mg Q6H PRN Administration Mild Pain (1-3) or Fever Albuterol 2 puff 01/04/24 02:09 Albuterol Sulfate (*Sp) Aerosol 1 Puff INHALATION QIDRT PRN Shortness Of Breath Or Wheezin Albuterol/Ipratropium 3 ml 01/04/24 02:09 Ipratropium 0.5 Mg/Albuterol Sulfate 2.5 Mg Ampul.Neb 3 Ml INHALATION TID PRN Shortness Of Breath Or Wheezing Apixaban 5 mg 01/04/24 02:10 01/06/24 09:08 Apixaban 5 Mg Tablet PO 5 mg Q12HR KIMBERLY Administration Empagliflozin 10 mg 01/04/24 09:00 01/06/24 09:08 Empagliflozin 10 Mg Tablet PO 02/03/24 08:59 10 mg DAILY KIMBERLY Administration Furosemide 40 mg 01/04/24 09:00 01/06/24 09:08 Furosemide Inj 40 Mg/4 Ml Vial IV PUSH 40 mg DAILY KIMBERLY Administration Piperacillin Sod/Tazobactam Sod 2.25 gm in 50 mls @ 100 mls/hr 01/04/24 03:00 01/06/24 03:27 Zosyn 2.25 Gm/Ns 50 Ml IVPB Infused Q8H KIMBERLY Infusion Metoprolol
--- NOTE | 2024-01-06 10:51 | PM.IMPN ---
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 Patient and daughter not aware of prior mass Discussed with neuro surgery regarding whether patient might need transfer/intervention, awaiting call back this evening (2) Abdominal pain, RUQ: Code(s): R10.11 - Right upper quadrant pain Status: Acute Assessment and Plan: Conservative management possible acute cholecystitis treating with antibiotics, if white blood cell count rises or patient becomes febrile we will consider IR drain placement (3) Acute exacerbation of CHF (congestive heart failure): Qualifiers: Heart failure type: unspecified Qualified Code(s): I50.9 - Heart failure, unspecified Code(s): I50.9 - Heart failure, unspecified Status: Acute Assessment and Plan: Echocardiogram from October 2023 LVEF 55-60% with diastolic dysfunction E/E prime 14 and mild pulmonary hypertension estimated systolic pressure 46 (4) LEROY (acute kidney injury): Code(s): N17.9 - Acute kidney failure, unspecified Status: Acute Assessment and Plan: Recent baseline GFR hours mid 20s, currently 17 (5) Hypertension: Code(s): I10 - Essential (primary) hypertension Status: Chronic Assessment and Plan: Stable on metoprolol (6) Paroxysmal atrial fibrillation: Code(s): I48.0 - Paroxysmal atrial fibrillation Status: Chronic Assessment and Plan: Stable on metoprolol and apixaban (7) Acute hypercapnic respiratory failure: Code(s): J96.02 - Acute respiratory failure with hypercapnia Status: Acute Assessment and Plan: On 01/04 patient had hypercapnia with altered mental status improved after some time on BiPAP. On 01/05 patient had recurrent episode of altered mental status and weakness with increased hypercapnia on ABG, ordered continuous BiPAP and transferred patient to IMU (8) Respiratory acidosis: Code(s): E87.29 - Other acidosis Status: Acute Assessment and Plan: PH 7.282, pCO2 91.9, PO2 123.9, HC03 42.4 Initiate BiPAP and transfer patient to IMU Time Spent With Patient Time: Long phone conversation patient's daughter regarding goals of care. At this time patient remains full code was previously independent living in family has been looking at assisted living facilities. I discuss the severity of her condition at this time and who stated that at best patient would need SNF on discharge and possibly would need transfer for brain mass findings. I did discuss briefly that hospice could be a consideration. Time with patient: Greater than 35 minutes Subjective Date/time seen: 01/06/24 10:51 Interval history: 83 y/o F presents here with abdominal pain and shortness of breath with PMH of anemia, CVA, chronic ILD, COPD, chronic respiratory failure with hypoxia on home O2, CAD, anxiety/depression, CHF, GERD, HLD, HTN, paroxysmal AFib, pulmonary embolism, and sleep apnea (on supplemental O2, does not use CPAP). The patient presents here from home via EMS for further evaluation of abdominal pain and worsening shortness of breath. She reports upper abdominal pain that is worse in the RUQ started on 65 in the evening while she was sleeping. She describes the pain sharp, achy, nonradiating, constant, and no aggravating/alleviating factors. The abdominal pain is accompanied by mild nausea and body aches. Denying fever, chills, or diarrhea. Also reporting chronic shortness of breath that worsens when the abdominal pain becomes more sever. She has a history of a chronic interstitial lung disease, COPD, and CHF. She reports compliance with her diure
[2024-01-06 13:45] LABS: Alveolar/Arterial O2 Gradient < 0.0 mmHg; Base Excess ABG 12.8 mEq/l (+/-2.0); Fractional Inspired Oxygen 28 %; HCO3 ABG 42.4 mEq/l (22.0-26.0); Oxygen Content ABG 14.4 %vol (16.0-22.0); Oxygen Saturation ABG 97.8 % (95.0-100.0); Oxyhemoglobin 97.8 % THb (90.0-100.0); PO2 ABG 123.9 mmHg (80.0-100.0); PO2 FiO2 Ratio Arterial Blood 4.43 %; Total Hemoglobin 10.3 g/dL (12.0-18.0)
[2024-01-06 13:51] LABS: PCO2 ABG 91.9 mmHg (35.0-45.0); Site Drawn RIGHT RADIAL; pH ABG 7.282 (7.350-7.450)
[2024-01-06 13:52] LABS: Device NASAL CANNULA
--- NOTE | 2024-01-06 14:05 | PCPTNOTE ---
Attempted PT evaluation. Per pt's RN, pt is not medically appropriate for therapy this date. Will follow.
[2024-01-07] VITALS (17 sets, daily range): BP systolic 99–137; BP diastolic 53–75; PULSE 75–96; RESP 16–20; TEMP 36.3–36.8; O2SAT 90–100
[2024-01-07] MEDS: PIPERACILLIN/TAZ 2.25G/NS 50ML 2.25 GM/50 ML BAG IVPB (02:24)
[2024-01-07] MEDS: MORPHINE SULFATE (*CRX) 4 MG/ML INJ IM (04:43)
[2024-01-07 04:47] LABS: Alveolar/Arterial O2 Gradient 58.6 mmHg; Base Excess ABG 11.6 mEq/l (+/-2.0); Fractional Inspired Oxygen 28 %; HCO3 ABG 38.1 mEq/l (22.0-26.0); Oxygen Content ABG 13.6 %vol (16.0-22.0); Oxygen Saturation ABG 93.2 % (95.0-100.0); Oxyhemoglobin 93.4 % THb (90.0-100.0); PO2 ABG 68.2 mmHg (80.0-100.0); PO2 FiO2 Ratio Arterial Blood 2.44 %; Total Hemoglobin 10.3 g/dL (12.0-18.0); pH ABG 7.409 (7.350-7.450)
[2024-01-07 04:52] LABS: Device NASAL CANNULA; Modified Allen's Test Pass; PCO2 ABG 61.7 mmHg (35.0-45.0); Site Drawn RIGHT RADIAL
[2024-01-07 05:02] LABS: Hematocrit 32.6 % (37.0-47.0); Hemoglobin 9.2 g/dL (12.0-15.0); Mean Corpuscular HGB Conc 28.2 g/dl (32-36); Mean Corpuscular Hemoglobin 28.5 pg (26-34); Mean Corpuscular Volume 100.9 fl (80-100); Mean Platelet Volume 12.6 fl (7.4-10.4); Platelet Count Result 124 k/mm3 (150-375); Red Blood Count 3.23 M/mm3 (4.2-5.4); Red Cell Distribution Width 14.9 % (11.5-14.5); White Blood Count 4.6 K/mm3 (4.5-10.0)
[2024-01-07 05:21] LABS: Alanine Aminotransferase 14 U/L (6-35); Albumin Level 3.6 g/dL (3.5-5.1); Alkaline Phosphatase 54 U/L (38-126); Aspartate Amino Transferase 26 U/L (14-36); Bilirubin,Total 0.6 mg/dL (0.2-1.3); Blood Urea Nitrogen 43 mg/dL (7-17); Calcium 9.1 mg/dL (8.4-10.2); Carbon Dioxide > 40 mmol/L (22-30); Chloride 97 mmol/L (98-107); Estimated CRCL calculation 16 ml/min; Estimated Glomerular Filt Rate 18; Glucose 90 mg/dL (65-110); Magnesium 2.2 mg/dL (1.6-2.3); Potassium 3.8 mmol/L (3.4-5.0); Sodium 141 mmol/L (137-145)
[2024-01-07 08:32] LABS: NT Pro B Type Natriuretic Pept 12500 pg/mL (19.9-100)
--- NOTE | 2024-01-07 09:34 | PM.CNPUL ---
Assessment and Plan Assessment and plan (1) COPD (chronic obstructive pulmonary disease): Qualifiers: COPD type: COPD with acute lower respiratory infection Qualified Code(s): J44.0 - Chronic obstructive pulmonary disease with (acute) lower respiratory infection Code(s): J44.9 - Chronic obstructive pulmonary disease, unspecified Status: Acute Assessment and Plan: Gold grade B COPD 62 PY , quit age 48, Pulmonary function testing was not performed due to financial issues when seen in clinic in 2020, CT scan of the chest on 11/08/2020 with no evidence of apical predominant emphysema. Patient has chronic hypoxemic respiratory failure requiring 2.5 L nasal cannula 24-7. patient had no evidence of hypercarbic respiratory failure on blood gas on 11/15/2023 with a pH of 7.43/41/83 on 3 L. Her serum bicarbonate however was 34. She has dyspnea cross the room using a walker at baseline. She had inpatient COPD exacerbation on 10/27/2023. Currently the patient is admitted for abdominal pain and has no change in her baseline respiratory status and states she is breathing at her normal. She has a normal cough. Her phlegm has increased slightly from 1 to 2 times a day to 2 to 3 times a day. Currently she is on 2 L nasal cannula saturation 97%. She has decreased breath sounds with no wheezing. The patient tells me she has attempted long-acting bronchodilators as an outpatient and they do not help her and that she does not wish to try any new medicines at this time. She wishes to continue her home p.r.n. albuterol nebulizer and inhaler which she is taking 0 to 1 times a day. I recommended to the patient that we perform an overnight oximetry and at this time she does not wish to have that test performed. I told the patient that she likely has chronic hypercarbic respiratory failure and she may benefit from noninvasive ventilation at night. The patient told me she cannot tolerate the BiPAP mask and does not want any additional testing done to verify whether not she would benefit from this treatment because she would not wear a noninvasive ventilator at home. Plan: The patient is not having a COPD exacerbation and I do not see the need for inhaled or systemic steroids at this point. She does not need antibiotics from a pulmonary perspective. Agree with Michelle haywoodisamia. p.r.n. shortness of breath or wheezing. I will continue 2 L at night. At this time the patient tells me she wishes no further testing to be done for her breathing. If the patient is in agreement will perform home O2 assessment on the day of discharge to determine her oxygen needs at rest and with activity. The patient may have COPD with chronic hypercarbic respiratory failure and at this time she declines use of home noninvasive ventilation. Last blood gas off of BiPAP for approximately 6-7 hours this morning was with a pH of 7.41/62/68 on 2 L nasal cannula. When I asked the patient if she wanted to wear BiPAP if she had a life-threatening condition she said no . Patient also told me she does not want to be intubated. Will discuss code status with the hospitalist team. Patient can follow-up in the Pulmonary Clinic if she desires. I gave her our business card. Discussed with Franko Wells, will sign off, call with questions. (2) ILD (interstitial lung disease): Code(s): J84.9 - Interstitial pulmonary disease, unspecified Status: Acute Assessment and Plan: Patient has mild basilar interstitial lung disease on CT scan from 11/08/2020 with minimal change from her prior CT scan on 01/11/2020. Patient has refused PFTs. I wished to repeat a CT scan of the chest on 11/07/2021 to follow the radiologic appearance of her interstitial lung disease however she did not return to pulmonary clinic. CT scan of the abdomen on 01/03/2024 again shows mild basilar peripheral septal thickening with no progression from 11/08/2020. This ma
[2024-01-07] MEDS: PANTOPRAZOLE 40 MG TABLET PO (09:58)
[2024-01-07] MEDS: APIXABAN 5 MG TABLET PO (09:59)
[2024-01-07] MEDS: METOPROLOL TARTRATE 50 MG TAB PO (09:59)
[2024-01-07] MEDS: EMPAGLIFLOZIN 10 MG TABLET PO (09:59)
[2024-01-07] MEDS: ROSUVASTATIN 20 MG TABLET PO (10:00)
[2024-01-07] MEDS: FUROSEMIDE INJ 40 MG/4 ML VIAL IV PUSH (10:04)
--- NOTE | 2024-01-07 10:36 | PM.PNGS ---
Progress Note: A&P Assessment and Plan (1) Cholecystitis: Code(s): K81.9 - Cholecystitis, unspecified Status: Acute Assessment and Plan: exam benign, carleen low fat diet, ok to dc abx at this point, no acute surgical issues, will s/o, call c ?s, issues Subjective Subjective Date/Time Seen: 01/07/24 10:36 Interval history: no acute issues, abd pain sl better, carleen low fat diet Review of Systems Review of Systems: All systems reviewed & are unremarkable except as noted in HPI and below Exam Const: General: cooperative, comfortable and no acute distress Resp: Auscultation: clear to auscultation bilaterally Cardio: Rate: regular rate Rhythm: regular rhythm GI: Inspection: normal to inspection and non-distended GI Palp: Yes abdominal tenderness, Yes Soft to palpation and Yes Tenderness to palpation present (GI) Objective Data Vital Signs Vital Signs: Vital Signs - 24 hr 01/06/24 13:54 01/06/24 12:00 01/06/24 15:23 Temperature 36.4 C L 36.3 C L Pulse Rate 82 87 72 Respiratory Rate 18 18 Blood Pressure 121/67 122/66 Pulse Oximetry 100 99 Oxygen Delivery Oxygen Flow Rate Fraction of Inspired Oxygen 01/06/24 15:15 01/06/24 16:00 01/06/24 16:00 Temperature Pulse Rate 94 Respiratory Rate 16 Blood Pressure Pulse Oximetry 97 97 Oxygen Delivery BiPAP BiPAP Oxygen Flow Rate Fraction of Inspired Oxygen 01/06/24 18:00 01/06/24 20:08 01/06/24 20:12 Temperature 36.6 C Pulse Rate 97 86 Respiratory Rate 18 Blood Pressure 120/89 Pulse Oximetry 93 91 Oxygen Delivery Nasal Cannula Oxygen Flow Rate 2 Fraction of Inspired Oxygen 01/06/24 20:36 01/06/24 20:59 01/06/24 20:00 Temperature Pulse Rate 94 91 89 Respiratory Rate 15 Blood Pressure Pulse Oximetry 97 Oxygen Delivery BiPAP Oxygen Flow Rate Fraction of Inspired Oxygen 01/06/24 20:00 01/06/24 21:46 01/06/24 23:06 Temperature 36.8 C Pulse Rate 89 92 84 Respiratory Rate 18 18 Blood Pressure 131/64 Pulse Oximetry 91 93 Oxygen Delivery Nasal Cannula Oxygen Flow Rate 2 Fraction of Inspired Oxygen 28 01/07/24 00:00 01/07/24 00:00 01/06/24 23:45 Temperature Pulse Rate 92 84 Respiratory Rate 18 Blood Pressure Pulse Oximetry 93 92 Oxygen Delivery Nasal Cannula Oxygen Flow Rate 2 Fraction of Inspired Oxygen 28 01/07/24 01:59 01/07/24 03:32 01/07/24 03:47 Temperature 36.3 C L Pulse Rate 88 90 94 Respiratory Rate 20 Blood Pressure 137/66 Pulse Oximetry 90 Oxygen Delivery Oxygen Flow Rate Fraction of Inspired Oxygen 01/07/24 03:47 01/07/24 06:00 01/07/24 07:45 Temperature 36.5 C Pulse Rate 94 96 90 Respiratory Rate 20 16 Blood Pressure 131/53 L Pulse Oximetry 90 100 Oxygen Delivery Nasal Cannula Oxygen Flow Rate 2 Fraction of Inspired Oxygen 28 01/07/24 08:56 01/07/24 09:59 01/07/24 10:04 Temperature Pulse Rate 92 Respiratory Rate Blood Pressure Pulse Oximetry 97 Oxygen Delivery Nasal Cannula Nasal Cannula Oxygen Flow Rate 2 2 Fraction of Inspired Oxygen 28 Intake/Output Intake/Output: Intake & Output 01/04/24 01/05/24 01/06/24 01/07/24 23:59 23:59 23:59 23:59 Intake Total 1520 1830 1250 590 Output Total 1750 2500 3100 500 Balance -230 -248 -4550 90 Meds/Results Medications: Active Medications Generic Name Dose Route Start Last Admin Trade Name Freq PRN Reason Stop Dose Admin Acetaminophen 1,000 mg 01/04/24 02:14 01/06/24 23:05 Acetaminophen 500 Mg Tablet PO 1,000 mg Q6H PRN Administration Mild Pain (1-3) or Fever Albuterol 2 puff 01/04/24 02:09 Albuterol Sulfate (*Sp) Aerosol 1 Puff INHALATION QIDRT PRN Shortness Of Breath Or Wheezin Albuterol/Ipratropium 3 ml 01/04/24 02:09 Ipratropium 0.5 Mg/Albuterol Sulfate 2.5 Mg Ampul.Neb 3 Ml INHALATION TID PRN Shortness Of Breath Or Wheezing Api
--- NOTE | 2024-01-07 12:05 | PM.IMPN ---
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 - Other specified disorders of brain Status: Acute (5) Abdominal pain, RUQ: Code(s): R10.11 - Right upper quadrant pain Status: Acute (6) Acute exacerbation of CHF (congestive heart failure): Qualifiers: Heart failure type: unspecified Qualified Code(s): I50.9 - Heart failure, unspecified Code(s): I50.9 - Heart failure, unspecified Status: Acute (7) LEROY (acute kidney injury): Code(s): N17.9 - Acute kidney failure, unspecified Status: Acute (8) Hypertension: Code(s): I10 - Essential (primary) hypertension Status: Chronic (9) Paroxysmal atrial fibrillation: Code(s): I48.0 - Paroxysmal atrial fibrillation Status: Chronic Plan 01/06: Patient no longer wants any treatment or curative modalities. She adamantly declines any further attempt with BiPAP initiation. Patient has made her wishes to family and the care team herself. Daughter is POA and agrees with allowing comfort measures rather life-prolonging care and will consult with hospice. Patient will need facility placement to discharge as she previously lived independently at home and will not be able to be discharged to her daughter's home for end of life care. Time Spent With Patient Time with patient: Greater than 35 minutes Subjective Date/time seen: 01/07/24 12:05 Interval history: Pulmonology saw patient earlier today. Patient only tolerated BiPAP until about midnight last night. She had disagreements with nursing staff regarding the importance of wearing the BiPAP. She ended up demanding a new nurse treat her because she felt intimidated when the nurse was explaining the importance of continuing to wear the BiPAP. Patient expressed to pulmonology Dr. Gaston that she never wanted to wear BiPAP again even if her condition worsened, she did not want intubation or CPR if her condition worsens. I spoke with patient and patient's daughter at bedside. Patient does not want any further testing or intervention at this time. She seems to be a little on the confused side though she was very oriented with Dr. Gaston earlier. Patient struggling to complete all of her thoughts and sentences and talking off into tangents at times. Patient and daughter agree no resuscitative measures and no for seen BiPAP on even when patient's mental status deteriorates. At this time the election is for comfort measures and Case Management will consult with hospice. I informed that pain medication anxiety medication be available case patient was anxious having pain or becoming combative. We will continue supplemental oxygen at 2 L per minute. We will transfer patient out the IMU to general medical floor while working on placement determination and hospice. Review of Systems Review of Systems: All systems reviewed & are unremarkable except as noted in HPI and below Exam Narrative: GENERAL: Elderly female mildly confused awake supplemental oxygen and place 2 liters/minutes HEAD: Normocephalic, atraumatic. ENT:? Mucous membranes moist. CHEST: Clear to auscultation.? No respiratory distress. HEART: Regular rate and rhythm. ? Normal peripheral pulses. ABDOMEN: Soft, nontender, nondistended. EXTREMITIES: Normal range of motion. No peripheral edema. SKIN: Warm dry normal color NEURO: Awake alert mildly disoriented losing train of thought and meandering thought processes Objective Data Vital Signs Vital Signs: Vital Signs - 24 hr 01/06/24 13:54 01/06/24 15:23 01/06/24 15:15 [place]
[2024-01-08] VITALS (9 sets, daily range): BP systolic 101–154; BP diastolic 52–70; PULSE 64–100; RESP 18–24; TEMP 36.6–36.9; O2SAT 91–100
[2024-01-08] MEDS: MORPHINE SULFATE (*CRX) 2 MG/ML INJ IV PUSH ×2 (00:03→18:22)
--- NOTE | 2024-01-08 07:11 | PM.IMPN ---
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 - Other specified disorders of brain Status: Acute (5) Abdominal pain, RUQ: Code(s): R10.11 - Right upper quadrant pain Status: Acute (6) Acute exacerbation of CHF (congestive heart failure): Qualifiers: Heart failure type: unspecified Qualified Code(s): I50.9 - Heart failure, unspecified Code(s): I50.9 - Heart failure, unspecified Status: Acute (7) LEROY (acute kidney injury): Code(s): N17.9 - Acute kidney failure, unspecified Status: Acute (8) Hypertension: Code(s): I10 - Essential (primary) hypertension Status: Chronic (9) Paroxysmal atrial fibrillation: Code(s): I48.0 - Paroxysmal atrial fibrillation Status: Chronic Plan 01/06: Patient no longer wants any treatment or curative modalities. She adamantly declines any further attempt with BiPAP initiation. Patient has made her wishes to family and the care team herself. Daughter is POA and agrees with allowing comfort measures rather life-prolonging care and will consult with hospice. Patient will need facility placement to discharge as she previously lived independently at home and will not be able to be discharged to her daughter's home for end of life care. 01/07: Hospice consult today at 1500. Referrals have been sent to nursing homes for placement. Patient and daughter wants [facility] hospice. She received 1 dose of IV morphine last night and slept soundly. She is having some wheezing on exam, ordered albuterol neb. Subjective Date/time seen: 01/08/24 07:11 Interval history: 83 y/o F presents here with abdominal pain and shortness of breath with PMH of anemia, CVA, chronic ILD, COPD, chronic respiratory failure with hypoxia on home O2, CAD, anxiety/depression, CHF, GERD, HLD, HTN, paroxysmal AFib, pulmonary embolism, and sleep apnea (on supplemental O2, does not use CPAP). ] 01/07: Mrs Jones is seen resting in bed on oxygen via nasal cannula. She is tearful. She was triggered by something causing her to think of her late who traumatically approximately 30 years ago. We discussed the plan for hospice consult today at 1500. I asked if she was going home with hospice but she states no I'm going to hospice, where ever they put me . She is having audible expiratory wheezing on exam. She prefers nebulizer treatments to inhalers. Nebs ordered and nursing has been asked to have RT see her. Review of Systems Review of Systems: All systems reviewed & are unremarkable except as noted in HPI and below Exam Narrative: General: well appearing, tearful, appears stated age. HEENT: normocephalic, atraumatic. Mucous membranes moist. EOMI, PERRLA, bilateral sclera anicteric, no conjunctival injection. Neck supple without JVD, lymphadenopathy, or bruit. Respiratory: clear to auscultation bilaterally. No rales/rhonic/+ expiratory wheezes. Cardiovascular: Irregular rate and rhythm, normal S1-S2 upon auscultation. No murmurs, rubs, or clicks. PMI is nondisplaced, capillary refill less than 3 second. Abdomen: Soft, round, no pulsatile masses, nondistended and nontender. No rebound, no guarding. No CVA tenderness, no hepatosplenomegaly. Bowel sounds present to all four quadrants. No high pitch or tinkling sounds, resonant to percussion. Extremities: No cyanosis, clubbing. Dependent edema present to BLE. Pulses are palpable 2/2. Active ROM to all four extremities. Neuro: Alert and orientated x 4. PERRLA. Cranial nerves 2-12 intact without focal deficit. Skin: Warm, dry, and intact, w
[2024-01-08] MEDS: FUROSEMIDE 40 MG TABLET PO (08:38)
[2024-01-08] MEDS: ALBUTEROL SULFATE NEB 2.5 MG/3 ML INH INHALATION (09:36)
[2024-01-09 04:00] VITALS: BP 145/79; PULSE 100; RESP 18; TEMP 36.7; O2SAT 99
[2024-01-09] MEDS: MORPHINE SULFATE (*CRX) 2 MG/ML INJ IV PUSH (06:48)
--- NOTE | 2024-01-09 07:00 | P.PNIM_ITS ---
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 - Other specified disorders of brain Status: Acute (5) Abdominal pain, RUQ: Code(s): R10.11 - Right upper quadrant pain Status: Acute (6) Acute exacerbation of CHF (congestive heart failure): Qualifiers: Heart failure type: unspecified Qualified Code(s): I50.9 - Heart failure, unspecified Code(s): I50.9 - Heart failure, unspecified Status: Acute (7) LEROY (acute kidney injury): Code(s): N17.9 - Acute kidney failure, unspecified Status: Acute (8) Hypertension: Code(s): I10 - Essential (primary) hypertension Status: Chronic (9) Paroxysmal atrial fibrillation: Code(s): I48.0 - Paroxysmal atrial fibrillation Status: Chronic Plan 01/06: Patient no longer wants any treatment or curative modalities. She adamantly declines any further attempt with BiPAP initiation. Patient has made her wishes to family and the care team herself. Daughter is POA and agrees with allowing comfort measures rather life-prolonging care and will consult with hospice. Patient will need facility placement to discharge as she previously lived independently at home and will not be able to be discharged to her daughter's home for end of life care. 01/07: Hospice consult today at 1500. Referrals have been sent to nursing homes for placement. Patient and daughter wants [facility] hospice. She received 1 dose of IV morphine last night and slept soundly. She is having some wheezing on exam, ordered albuterol neb. 01/08: Hospice meeting went well. Patient is ready to get out of the hospital. She is very happy with the care she has received. No wheezing on exam today. Subjective Date/time seen: 01/09/24 07:00 Interval history: 83 y/o F presents here with abdominal pain and shortness of breath with PMH of anemia, CVA, chronic ILD, COPD, chronic respiratory failure with hypoxia on home O2, CAD, anxiety/depression, CHF, GERD, HLD, HTN, paroxysmal AFib, pulmonary embolism, and sleep apnea (on supplemental O2, does not use CPAP). ] 01/07: Mrs Jones is seen resting in bed on oxygen via nasal cannula. She is tearful. She was triggered by something causing her to think of her late who traumatically approximately 30 years ago. We discussed the plan for hospice consult today at 1500. I asked if she was going home with hospice but she states no I'm going to hospice, where ever they put me . She is having audible expiratory wheezing on exam. She prefers nebulizer treatments to inhalers. Nebs ordered and nursing has been asked to have RT see her. 01/08: No acute events overnight. Patient did have some morphine this morning w hich made her very dizzy. Nursing is asking if we can have [place] which she may better tolerate. Continue to wait for placement Review of Systems Review of Systems: All systems reviewed & are unremarkable except as noted in HPI and below Exam Narrative: General: well appearing, tearful, appears stated age. HEENT: normocephalic, atraumatic. Mucous membranes moist. EOMI, PERRLA, bilateral sclera anicteric, no conjunctival injection. Neck supple without JVD, lymphadenopathy, or bruit.
[2024-01-09 07:39] VITALS: O2SAT 97
[2024-01-09 08:00] VITALS: O2SAT 97
[2024-01-09] MEDS: FUROSEMIDE 40 MG TABLET PO (08:29)
[2024-01-09 13:31] VITALS: BP 125/62; PULSE 70; RESP 17; TEMP 36.2; O2SAT 98
[2024-01-09] MEDS: HYDROcodone/acetaminophen (*CRX) 5-325 MG TABLET 1 TAB PO (15:57)
[2024-01-09 20:00] VITALS: BP 134/54; PULSE 100; RESP 18; TEMP 36.5; O2SAT 95
[2024-01-10] MEDS: HYDROcodone/acetaminophen (*CRX) 5-325 MG TABLET 1 TAB PO ×2 (00:39→08:49)
--- NOTE | 2024-01-10 07:19 | PM.IMPN ---
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 - Other specified disorders of brain Status: Acute (5) Abdominal pain, RUQ: Code(s): R10.11 - Right upper quadrant pain Status: Acute (6) Acute exacerbation of CHF (congestive heart failure): Qualifiers: Heart failure type: unspecified Qualified Code(s): I50.9 - Heart failure, unspecified Code(s): I50.9 - Heart failure, unspecified Status: Acute (7) LEROY (acute kidney injury): Code(s): N17.9 - Acute kidney failure, unspecified Status: Acute (8) Hypertension: Code(s): I10 - Essential (primary) hypertension Status: Chronic (9) Paroxysmal atrial fibrillation: Code(s): I48.0 - Paroxysmal atrial fibrillation Status: Chronic Plan 01/06: Patient no longer wants any treatment or curative modalities. She adamantly declines any further attempt with BiPAP initiation. Patient has made her wishes to family and the care team herself. Daughter is POA and agrees with allowing comfort measures rather life-prolonging care and will consult with hospice. Patient will need facility placement to discharge as she previously lived independently at home and will not be able to be discharged to her daughter's home for end of life care. 01/07: Hospice consult today at 1500. Referrals have been sent to nursing homes for placement. Patient and daughter wants [facility] hospice. She received 1 dose of IV morphine last night and slept soundly. She is having some wheezing on exam, ordered albuterol neb. 01/08: Hospice meeting went well. Patient is ready to get out of the hospital. She is very happy with the care she has received. No wheezing on exam today. Subjective Date/time seen: 01/10/24 07:19 Interval history: 83 y/o F presents here with abdominal pain and shortness of breath with PMH of anemia, CVA, chronic ILD, COPD, chronic respiratory failure with hypoxia on home O2, CAD, anxiety/depression, CHF, GERD, HLD, HTN, paroxysmal AFib, pulmonary embolism, and sleep apnea (on supplemental O2, does not use CPAP). ] 01/07: Mrs Jones is seen resting in bed on oxygen via nasal cannula. She is tearful. She was triggered by something causing her to think of her late who traumatically approximately 30 years ago. We discussed the plan for hospice consult today at 1500. I asked if she was going home with hospice but she states no I'm going to hospice, where ever they put me . She is having audible expiratory wheezing on exam. She prefers nebulizer treatments to inhalers. Nebs ordered and nursing has been asked to have RT see her. 01/08: No acute events overnight. Patient did have some morphine this morning which made her very dizzy. Nursing is asking if we can have [place] which she may better tolerate. Continue to wait for placement Review of Systems Review of Systems: All systems reviewed & are unremarkable except as noted in HPI and below Exam Narrative: General: well appearing, tearful, appears stated age. HEENT: normocephalic, atraumatic. Mucous membranes moist. EOMI, PERRLA, bilateral sclera anicteric, no conjunctival injection. Neck supple without JVD, lymphadenopathy, or bruit. Respiratory: clear to auscultation bilaterally. No rales/rhonic/+ expiratory wheezes. Cardiovascular: Irregular rate and rhythm, normal S1-S2 upon auscultation. No murmurs, rubs, or clicks. PMI is nondisplaced, capillary refill less than 3 second. Abdomen: Soft, round, no pulsatile masses, nondistended and nontender. No rebound, no guarding. No CVA tenderness, no hepatos
[2024-01-10 08:00] VITALS: O2SAT 95
[2024-01-10 08:26] VITALS: BP 150/95; PULSE 76; RESP 18; TEMP 36.2; O2SAT 95
[2024-01-10] MEDS: FUROSEMIDE 40 MG TABLET PO (08:49)
--- NOTE | 2024-01-10 11:57 | PM.DS ---
DS: Admitting Diagnosis Discharge Date 01/10/24 Admitting Diagnosis shortness of breath, abdominal pain DS: Summary Hospital Course Reason for hospitalization: Acute cholecystitis, CHF exacerbation Hospital Course: Patient initially presented with right upper quadrant pain and shortness of breath. She was found have acute cholecystitis but was unable to go for surgery because of her breathing. Her right upper quadrant pain resolved on its own and no surgery was needed. Pulmonology was consulted for her chronic hypercarbic respiratory failure and a recommend BiPAP. The patient is adamant that she would not want a BiPAP or any further testing to see if she would benefit from one. She also did not want to try any new maintenance inhalers. At this time she decided she would like to transition to hospice care for her chronic respiratory failure. She remained inpatient well awaiting halfway placement with hospice consult. She is discharging today to [facility] and rehab with hospice. Status at Discharge Cognitive/behavioral status at discharge: A&Ox4 Time Spent with Patient Time attestation: Total time spent providing and/or coordinating discharge services: 66 Exam Narrative: General: well appearing, tearful, appears stated age. HEENT: normocephalic, atraumatic. Mucous membranes moist. EOMI, PERRLA, bilateral sclera anicteric, no conjunctival injection. Neck supple without JVD, lymphadenopathy, or bruit. Respiratory: clear to auscultation bilaterally. No rales/rhonic/+ expiratory wheezes. Cardiovascular: Irregular rate and rhythm, normal S1-S2 upon auscultation. No murmurs, rubs, or clicks. PMI is nondisplaced, capillary refill less than 3 second. Abdomen: Soft, round, no pulsatile masses, nondistended and nontender. No rebound, no guarding. No CVA tenderness, no hepatosplenomegaly. Bowel sounds present to all four quadrants. No high pitch or tinkling sounds, resonant to percussion. Extremities: No cyanosis, clubbing. Dependent edema present to BLE. Pulses are palpable 2/2. Active ROM to all four extremities. Neuro: Alert and orientated x 4. PERRLA. Cranial nerves 2-12 intact without focal deficit. Skin: Warm, dry, and intact, without rash, erythema, or lesion. Lines: PIV Incisions: NA Psych: pleasant, cooperative, normal speech, normal affect, no hallucinations, no dysarthria, tearful DS: Data Data Completed and Pending Labs on day of discharge: Labs from last 24 hours 01/10/24 11:11 SARS-CoV-2 RNA (RT-PCR) Pending Discharge Plan Discharge Attending physician on discharge: Ronald Wright Consulting providers: Vandana Loaiza; Konstantin Swartz; Lainey Torre Discharging Clinician: Lainey Torre Anticipated Discharge Date/Time: 01/10/24 08:41 Patient Disposition: Hospice - Medical Facility Activity: november shower Diet: regular Discharge Instructions: Discharge to [facility] with [facility] Patient Instructions: Apixaban (By mouth), Safe Use of Anticoagulants (DC) Stand Alone Forms: General Discharge Information Follow-up/Referrals: Vandana Loaiza MD [Physician] - 2 Weeks Discharge Medications: Continued furosemide 40 mg tablet 40 mg PO DAILY Qty: 30 5RF metoprolol tartrate 50 mg tablet 50 mg PO BID Qty: 60 5RF rosuvastatin 20 mg tablet 20 mg PO DAILY Qty: 30 5RF albuterol sulfate 90 mcg/actuation HFA aerosol inhaler 2 inh INHALATION QID PRN (Reason: Shortness Of Breath Or Wheezing) dapagliflozin propanediol [Farxiga] 5 mg tablet 5 mg PO DAILY pantoprazole 40 mg Tablet,Delayed Release (Dr/Ec) 40 mg PO QAM Qty: 30 0RF ipratropium-albuterol 0.5 mg-3 mg(2.5 mg base)/3 mL solution for nebulization 3 ml INHALATION TID PRN (Reason: Shortness Of Breath Or Wheezing) Eliquis 5 mg tablet 5 mg PO Q12H Qty: 60 0RF Date of admission: 01/05/24 16:55 Primary Care Provider: Kalyn,Reyna Lua
[2024-01-10 11:59] LABS: SARS-CoV-2 RNA PCR Negative (Negative)
[2024-01-10 13:57] VITALS: BP 119/75; PULSE 65; RESP 17; TEMP 36.2; O2SAT 96
== END 2024-01-10 15:20 | disposition hospice, inpatient (51) | DRG 291 ==
LOC: ANHED 16:06 → ANH3MED 17:27 → ANHIMU 01-06 15:17 → ANH2MED 01-07 17:37
PROVIDERS: Family Medicine; Internal Medicine Pulmonary Disease; Nurse Practitioner; Student in an Organized Health Care Education/Training Program; Admitting Provider Hospitalist; Emergency Provider Student in an Organized Health Care Education/Training Program; PCP Physician Assistant; Visit Provider Nurse Practitioner Acute Care
DX: I11.0 Hypertensive heart disease with heart failure (principal); I50.33 Acute on chronic diastolic (congestive) heart failure; J96.01 Acute respiratory failure with hypoxia; J96.02 Acute respiratory failure with hypercapnia; J84.9 Interstitial pulmonary disease, unspecified; N17.9 Acute kidney failure, unspecified; E87.29 Other acidosis; K81.0 Acute cholecystitis; I48.0 Paroxysmal atrial fibrillation; I25.10 Atherosclerotic heart disease of native coronary artery without angina pectoris; D32.0 Benign neoplasm of cerebral meninges; J44.9 Chronic obstructive pulmonary disease, unspecified; E78.5 Hyperlipidemia, unspecified; K21.9 Gastro-esophageal reflux disease without esophagitis; M19.90 Unspecified osteoarthritis, unspecified site; R41.82 Altered mental status, unspecified; G47.30 Sleep apnea, unspecified; F32.A Depression, unspecified; F41.9 Anxiety disorder, unspecified; Z96.651 Presence of right artificial knee joint; Z20.822 Contact with and (suspected) exposure to COVID-19; Z51.5 Encounter for palliative care; Z11.52 Encounter for screening for COVID-19; Z86.73 Personal history of transient ischemic attack (TIA), and cerebral infarction without residual deficits; Z86.711 Personal history of pulmonary embolism; Z99.81 Dependence on supplemental oxygen; Z87.891 Personal history of nicotine dependence; Z87.442 Personal history of urinary calculi; Z79.01 Long term (current) use of anticoagulants
CPT/HCPCS: 36415; 36600; 70450; 71045; 71046; 74176; 76705; 80053; 81001; 82805; 83605; 83690; 83735; 83880; 84484; 85025; 85027; 85055; 85610; 85730; 86140; 87040; 87635; 87637; 93005; 94002; 94003; 94640; 94762; 96365; 96376; 97161; 97165; 97530; 97535; 99285; A9270; G0378; J1940; J2270; J2543